=== PATIENT | female | born 1950 | race Caucasian/White ===

== ENCOUNTER → 2016-07-12 | Outpatient (CLI) | payer OTHER, BC ==
[~2016-07-12] VITALS: Ht 154.3 cm; Wt 67.7 kg
[~2016-07-12] MED LIST: DICL1GEL12 TD; ESTR0.1D TD; FLUO20CA35 PO; FLUO40CA8 PO; FLV1 PO; LEVO50TA PO; METH2.5T PO; MULT1CHW18 PO; PANT40TA PO; PRED-301 PO; TOFA1TAB PO; TRAZ1TAB16 PO
[2016-07-12 12:44] VITALS: BP 121/73; PULSE 68; Ht 154.3 cm; Wt 67.7 kg
== END | disposition home or self-care (01) ==
LOC: C.NEUR 12:27
PROVIDERS: ATTEND Internal Medicine Pulmonary Disease
DX: G47.19 Other hypersomnia (principal); R53.83 Other fatigue; R06.83 Snoring; F51.4 Sleep terrors [night terrors]; G25.0 Essential tremor; M06.9 Rheumatoid arthritis, unspecified

== ENCOUNTER → 2016-07-15 | Outpatient (CLI) | payer OTHER, BC ==
--- NOTE | 2016-07-15 10:28 | DIAGNOSTIC IMAGING REPORT ---
MRI OF THE BRAIN WITHOUT CONTRAST CLINICAL HISTORY: , Blurred vision, headache, dizziness. COMPARISON STUDY: 10/16/2015 FINDINGS: Sagittal T1, axial diffusion, proton density and T2 weighted axial, coronal FLAIR, and axial T1-weighted images were acquired. No intra or extra-axial mass lesions are visualized Axial diffusion-weighted images reveal no evidence of acute or subacute infarction. There is no evidence of ventricular dilatation. Proton density T2-weighted and FLAIR images reveal moderately extensive foci of increased T2 signal within the white matter, likely on a small vessel basis. The findings remain similar to the preceding study There are no abnormal flow voids. IMPRESSION: 1. No significant change from the prior September 2015 study 2. No evidence of acute or subacute infarction 3. No evidence of intracranial mass in this noncontrast study 4. Moderately extensive foci of increased T2 and FLAIR signal within the white matter. Electronically signed by: Benjamín Polk M.D. 07/15/2016 10:26 AM Dictated Date/Time: 07/15/2016 10:24 AM
== END | disposition home or self-care (01) ==
LOC: C.MRIBC 09:15
PROVIDERS: ATTEND Psychiatry & Neurology Neurology
DX: F09 Unspecified mental disorder due to known physiological condition (principal)

== ENCOUNTER → 2016-07-24 | Outpatient (CLI) | payer OTHER, BC ==
--- NOTE | 2016-07-24 11:03 | DIAGNOSTIC IMAGING REPORT ---
VENOUS DOPPLER LEFT ARM UPPER EXTREMITY VENOUS DOPPLER HISTORY: Pain. Edema. LEFT ARM PAIN COMPARISON STUDY: None. FINDINGS: The internal jugular vein is patent. There is normal flow within the subclavian vein. There is normal flow and compressibility within the left axillary, basilic, brachial, radial, ulnar, and visualized cephalic veins. IMPRESSION: No DVT within the upper extremity. Electronically signed by: Mani Johnson M.D. 07/24/2016 11:02 AM Dictated Date/Time: 07/24/2016 11:00 AM
--- NOTE | 2016-07-24 11:31 | DIAGNOSTIC IMAGING REPORT ---
LEFT HUMERUS MIN 2 VIEWS ROUTINE CLINICAL HISTORY: M79.602 Left arm [id number] pain COMPARISON: None. DISCUSSION: The bones and joint spaces appear intact. There is no evidence of fracture, dislocation or bony disease. There is no evidence for soft tissue swelling. Possible subtle Hill-Sachs deformity posterior lateral aspect humeral head. This is considered nonacute. IMPRESSION: Negative study. Electronically signed by: Mani Johnson M.D. 07/24/2016 11:30 AM Dictated Date/Time: 07/24/2016 11:29 AM
== END | disposition home or self-care (01) ==
LOC: C.ULTRBC 10:06
PROVIDERS: ATTEND Internal Medicine Geriatric Medicine
DX: M79.602 Pain in left arm (principal)

== ENCOUNTER → 2016-10-17 | Outpatient (CLI) | payer OTHER, BC ==
[~2016-10-17] MED LIST changes: +TRAZ-119 PO; -TRAZ1TAB16 PO
--- NOTE | 2016-10-17 15:08 | MAMMOGRAPHY REPORT ---
BILATERAL DIGITAL SCREENING MAMMOGRAM WITH CAD: 10/17/2016 CLINICAL HISTORY: Routine screening. Patient has no complaints. TECHNIQUE: Current study was also evaluated with a Computer Aided Detection (CAD) system. Bilatera l CC and MLO views were obtained. COMPARISON: Comparison is made to exams dated: 07/12/2015 mammogram, 01/21/2013 mammogram - [facility], and 07/20/2010 mammogram - [facility] Dereje Bonilla. BREAST COMPOSITION: There are scattered areas of fibroglandular density in both breasts. FINDINGS: No suspicious masses, calcifications, or areas of architectural distortion are noted in e ither breast. There has been no significant interval change compared to prior exams. Scattered bilat eral benign-appearing calcifications are not significantly changed. IMPRESSION: ACR BI-RADS CATEGORY 2: BENIGN There is no mammographic evidence of malignancy. A 1 year screening mammogram is recommended. The p atient will receive written notification of the results. Approximately 10% of breast cancers are not detected with mammography. A negative mammographic repor t should not delay biopsy if a clinically suggestive mass is present. Mary Harris M.D. /:10/17/2016 12:18:07 Reference Test Clerk: Jeniffer SOTOMAYOR(Summer)(Mar[place]), [facility] letter sent: Normal 1/2 BI-RADS Code: ACR BI-RADS Category 2: Benign
== END | disposition home or self-care (01) ==
LOC: C.MAMM 10:10
PROVIDERS: ATTEND Internal Medicine Geriatric Medicine
DX: Z12.31 Encounter for screening mammogram for malignant neoplasm of breast (principal)

== ENCOUNTER → 2017-01-13 | Outpatient (CLI) | payer OTHER, BC ==
[~2017-01-13] MED LIST changes: -TRAZ-119 PO; +TRAZ1TAB16 PO
[2017-01-13 13:37] LABS: BASO % 0.2 %; BASO ABS # 0.01 K/uL (0-0.2); COMPLETE YES; HEMATOCRIT 37.9 % (37-47); IG% 0.2 %; LYMPH % 33.3 %; LYMPH ABS # 1.92 K/uL (1.2-3.4); MEAN CELL VOLUME 92.9 fL (80-100); MEAN CORPUSCULAR HEMOGLOBIN 29.9 pg (25-34); MEAN CORPUSCULAR HGB CONC 32.2 g/dl (32-36); MEAN PLATELET VOLUME 10.1 fL (7.4-10.4); MONO % 12.7 %; NEUT % 52.6 %; PLATELET COUNT 346 K/uL (130-400); RED BLOOD COUNT 4.08 M/uL (4.2-5.4); WHITE BLOOD COUNT 5.77 K/uL (4.8-10.8)
[2017-01-13 14:05] LABS: ALT/SGPT 25 U/L (12-78); AST/SGOT 19 U/L (15-37); BLOOD UREA NITROGEN 33 mg/dl (7-18); BUN/CREATININE RATIO 41.2 (10-20); CALCIUM 8.7 mg/dl (8.5-10.1); CARBON DIOXIDE 31 mmol/L (21-32); CHLORIDE 103 mmol/L (98-107); GLUCOSE 69 mg/dl (70-99); POTASSIUM 4.1 mmol/L (3.5-5.1); SODIUM 137 mmol/L (136-145)
[2017-01-13 14:16] LABS: ALKALINE PHOSPHATASE 57 U/L (45-117); CHOLESTEROL 211 mg/dl (0-200); CHOLESTEROL/HDL RATIO 3.6; HDL CHOLESTEROL 58 mg/dl; LDL CHOLESTEROL CALCULATED 130 mg/dl; TRIGLYCERIDES 113 mg/dl (0-150); VERY LOW DENSITY LIPOPROT CALC 23 mg/dl
== END | disposition home or self-care (01) ==
LOC: C.LABBC 11:25
PROVIDERS: ATTEND Internal Medicine Geriatric Medicine
DX: E03.9 Hypothyroidism, unspecified (principal); E78.5 Hyperlipidemia, unspecified

== ENCOUNTER → 2017-03-18 | Outpatient (CLI) | payer OTHER, BC ==
[2017-03-18 11:03] LABS: HEMATOCRIT 37.1 % (37-47); MEAN CELL VOLUME 94.9 fL (80-100); MEAN CORPUSCULAR HEMOGLOBIN 31.7 pg (25-34); MEAN CORPUSCULAR HGB CONC 33.4 g/dl (32-36); MEAN PLATELET VOLUME 9.9 fL (7.4-10.4); PLATELET COUNT 310 K/uL (130-400); RED BLOOD COUNT 3.91 M/uL (4.2-5.4); WHITE BLOOD COUNT 5.61 K/uL (4.8-10.8)
[2017-03-18 11:22] LABS: BLOOD UREA NITROGEN 25 mg/dl (7-18); BUN/CREATININE RATIO 30.8 (10-20); CARBON DIOXIDE 29 mmol/L (21-32); CHLORIDE 102 mmol/L (98-107); GLUCOSE 83 mg/dl (70-99); POTASSIUM 3.8 mmol/L (3.5-5.1); SODIUM 136 mmol/L (136-145)
[2017-03-19 13:00] LABS: LYME DISEASE AB IGG NEG (NEG); LYME DISEASE AB IGM NEG (NEG)
--- NOTE | 2017-03-24 13:07 | CODING QUERY MEDICAL NECESSITY ---
SUPPORTING DIAGNOSIS NEEDED Dr. Solis, A supporting diagnosis is required for the test/procedure performed on this patient in order for us to be reimbursed by the patient's insurance. Please provide a supporting diagnosis for the following test/procedure listed below next to the test name along with your signature. *If there is no additional diagnosis for this patient that would support the following test/procedure please document that below next to the test/procedure. Test(s)/Procedure(s) that require a supporting diagnosis: * ([id number]) B12 VITAMIN LEVEL DIAGNOSIS: DATE OF SERVICE: 03/18/17 Provider Signature: Date: Thank you Stevie Meyers [facility] Information Management Once completed, please kindly fax back to [phone] For questions please call [phone]
== END | disposition home or self-care (01) ==
LOC: C.LABBC 08:50
PROVIDERS: ATTEND Internal Medicine Geriatric Medicine
DX: E03.9 Hypothyroidism, unspecified (principal); R53.83 Other fatigue; G47.19 Other hypersomnia; F09 Unspecified mental disorder due to known physiological condition

== ENCOUNTER 2017-08-04 07:36 | Emergency (ER) | payer OTHER, BC ==
[~2017-08-04] VITALS: Ht 154.3 cm; Wt 64.8 kg
[~2017-08-04 07:36] MED LIST changes: +TRAZ-119 PO; -TRAZ1TAB16 PO
[2017-08-04 07:43] VITALS: TEMP 36.5; Ht 154.3 cm; Wt 64.8 kg
--- NOTE | 2017-08-04 08:17 | DIAGNOSTIC IMAGING REPORT ---
HEAD WITHOUT CONTRAST (CT) CLINICAL HISTORY: 66 years-old Female presenting with fall. TECHNIQUE: Multidetector CT imaging of the head was performed without the use of intravenous contrast. IV contrast: None. A dose lowering technique was used consistent with the principles of ALARA (as low as reasonably achievable). COMPARISON: MR brain from 07/15/2016. CT DOSE (mGy.cm): The estimated cumulative dose is 690.05 mGycm. FINDINGS: [employer] topogram: Unremarkable. Ventricles and sulci normal in size. Periventricular and subcortical white matter hypoattenuation, nonspecific but likely indicative of chronic small vessel ischemic change. No mass effect or midline shift. No hemorrhage or acute territorial infarct. No extra-axial fluid collection. Paranasal sinuses and mastoid air cells clear. Calvarium intact. IMPRESSION: 1. Chronic small vessel ischemic change. No acute intracranial abnormality. Electronically signed by: Chato Celeste M.D. 08/04/2017 8:16 AM Dictated Date/Time: 08/04/2017 8:13 AM
[2017-08-04] MEDS ORDERED: HYDROmorphone INJ 0.5 MG/0.5 ML SYR IV STA (08:49)
[2017-08-04] MEDS ORDERED: ONDANSETRON INJ 2 MG/ML 2 ML VIAL IV STA (08:49)
--- NOTE | 2017-08-04 09:38 | EMERGENCY ROOM VISIT NOTE ---
History Report prepared by Ella: Leopoldo Dunne Under the Supervision of: Dr. Bora Kevin D.O. First contact with patient: 07:47 Chief Complaint: FALL Stated Complaint: FALL, HIT HEAD History of Present Illness The patient is a 66 year old female who presents to the Emergency Room with complaints of pain in her head following a falling episode that occurred just prior to arrival. The patient states that she slipped on a patch ice this morning and fell directly backwards. She did hit the back of her head on the concrete ground. She describes the pain in her head as a "throbbing." The patient did not lost consciousness following the fall, and notes that she stood right back up on her own after the accident. She is also currently complaining of pain in the left side of her jaw. She has not taken any medications for her head pain to this point. Source of History: patient Onset: Just prior to arrival. Position: head Quality: other (Throbbing ) Associated Symptoms: No LOC Note: Left sided Jaw Pain. Review of Systems See HPI for pertinent positives & negatives. A total of 10 systems reviewed and were otherwise negative. Past Medical & Surgical Medical Problems: (1) Diverticulosis Colon (W/O Ment Of Hemorrhage) (2) Fibromyalgia (3) Rheumatoid Arthritis Family History FH: heart disease Social History Smoking Status: Never Smoker Drug Use: none Marital Status: Housing Status: lives with family Current/Historical Medications Scheduled Celecoxib (Celebrex), 50 MG PO BID Duloxetine HCl (Cymbalta), 60 MG PO QAM Ergocalciferol (Vitamin D 88845 Unit), 50,000 UNIT PO WK Estradiol (Vivelle-Dot), 1 PATCH TD 2XWK Folic Acid (Folic Acid), 1 MG PO QPM Levothyroxine Sodium (Synthroid), 50 MCG PO DAILY Methotrexate Sodium (Methotrexate), 8 TABS PO WK Multiple Vitamins W/ Minerals (Multivitamin Gummies Adul), 1 CHW PO DAILY Pantoprazole (Protonix), 40 MG PO BID Prednisone (Prednisone), 5 MG PO DAILY Trazodone Hcl (Desyrel), 50 MG PO HS Scheduled PRN Diclofenac Sodium (Topical) (Voltaren 1% Top Gel), 1 APPLN TD QID PRN for Pain Allergies Coded Allergies: Codeine (Verified Allergy, Intermediate, RASH, 08/04/17) Penicillins (Verified Allergy, Intermediate, RASH, 08/04/17) Sulfa Drugs (Verified Allergy, Intermediate, RASH, 08/04/17) Physical Exam Vital Signs Date Time Temp Pulse Resp B/P (MAP) Pulse Ox O2 Delivery O2 Flow Rate FiO2 08/04/17 08:20 62 14 141/73 97 Room Air 08/04/17 07:43 36.5 73 18 146/71 99 Room Air Physical Exam CONSTITUTIONAL/VITAL SIGNS: Reviewed / noted above. GENERAL: Non-toxic in appearance. INTEGUMENTARY: Warm, dry, and [place]. HEAD: Normocephalic. EYES: without scleral icterus or trauma. ENT/OROPHARYNX: clear and moist. LYMPHADENOPATHY/NECK: Is supple without lymphadenopathy or meningismus. RESPIRATORY: Lungs clear and equal. CARDIOVASCULAR: Regular rate and rhythm. GI/ABDOMEN: Soft and nontender. No organomegaly or pulsatile mass. No rebound or guarding. Normal bowel sounds. EXTREMITIES: Warm and well perfused. BACK: No CVA tenderness. NEUROLOGICAL: Intact without focal deficits. PSYCHIATRIC: normal affect. MUSCULOSKELETAL: Normally developed with good muscle tone. Medical Decision & Procedures ER Provider Diagnostic Interpretation: Radiology results as stated below per my review and radiologist interpretation: HEAD WITHOUT CONTRAST (CT) CLINICAL HISTORY: 66 years-old Female presenting with fall. TECHNIQUE: Multidetector CT imaging of the head was performed without the use of intravenous contrast. IV contrast: None. A dose lowering technique was used consistent with the principles of ALARA (as low as reasonably achievable). COMPARISON: MR brain from 07/15/2016. CT DOSE (mGy.cm): The estimated cumulative dose is 690.05 mGycm. 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 Ventricles and sulci normal in size. Periventricular and subcortical white matter hypoattenuation, nonspecific but likely indicative of chronic small vessel ischemic change. No mass effect or midline shift. No hemorrhage or acute territorial infarct. No extra-axial fluid collection. Paranasal sinuses and mastoid air cells clear. Calvarium intact. IMPRESSION: 1. Chronic small vessel ischemic change. No acute intracranial abnormality. Electronically signed by: Chato Celeste M.D. 08/04/2017 8:16 AM Dictated Date/Time: 08/04/2017 8:13 AM ED Course 0754: Previous medical records were reviewed. The patient was evaluated in room B8. A complete history and physical examination was performed. 0849: Ordered Zofran 4 mg IV, Dilaudid Inj 0.5 mg IV. 0936: On reevaluation, the patient is resting in bed. I discussed the results and findings with the patient. She verbalized agreement of the treatment plan. The patient was discharged home. Medical Decision Differential includes close head injury, intracranial bleed, facial trauma, cervical spine trauma, chest and thoracic trauma, abdominal and intra-abdominal trauma, spine neurologic trauma, extremity trauma. This is a 66-year-old female who presents to the ED with a chief complaint of fall. The patient states that she slipped and fell striking the back of her head on asphalt. She presents complaining of a headache and some left-sided jaw pain. The patient denies loss of consciousness. She denies any other injuries. No neck or back pain. The patient did not want anything for the pain. A CT scan of the head did not show acute process. Her exam did not reveal any obvious injury. She does complain of some left-sided jaw pain. There does not appear to be any evidence of a fracture. She may have contused the left jaw when she impacted causing a clenching of the jaw or some mild irritation of the jaw related to her impact. The patient's exam did not reveal any other obvious injuries. No back pain or neck pain on exam. The patient was told the results of the test. She was told to take Tylenol. She will follow-up with her PCP if her jaw pain persists after 1 week. She was to avoid heavy chewing. Impression Primary Impression: Fall Additional Impressions: Contusion of head Jaw pain Scribe Attestation The scribe's documentation has been prepared under my direction and personally reviewed by me in its entirety. I confirm that the note above accurately reflects all work, treatment, procedures, and medical decision making performed by me. Departure Information Dispostion Home / Self-Care Referrals No Doctor, Assigned (PCP) Patient Instructions My [facility] Additional Instructions Follow-up with your doctor in 1 week if jaw pain persists. CAT scan of the brain did not show any evidence of bleeding or skull fracture. Avoid excessive chewing while allowing your jaw to heal. Problem Qualifiers
[2017-08-04] MEDS ORDERED: CYM/30 PO (09:40)
[2017-08-04] MEDS ORDERED: ERGO500037 PO (09:40)
[2017-08-04] MEDS ORDERED: CELE50CA PO (09:40)
[2017-08-04 09:44] VITALS: BP 123/63; PULSE 63; O2SAT 99
== END 2017-08-04 09:45 | disposition home or self-care (01) ==
LOC: C.EDB 07:39
DX: S00.93XA Contusion of unspecified part of head, initial encounter (principal); R68.84 Jaw pain; W00.0XXA Fall on same level due to ice and snow, initial encounter; Y92.9 Unspecified place or not applicable; K57.30 Diverticulosis of large intestine without perforation or abscess without bleeding; M79.7 Fibromyalgia; M06.9 Rheumatoid arthritis, unspecified; Z82.49 Family history of ischemic heart disease and other diseases of the circulatory system; Z79.52 Long term (current) use of systemic steroids; Z79.899 Other long term (current) drug therapy; Z88.0 Allergy status to penicillin; Z88.2 Allergy status to sulfonamides; Z88.5 Allergy status to narcotic agent

== ENCOUNTER → 2017-10-08 | Outpatient (CLI) | payer OTHER, BC ==
[~2017-10-08] MED LIST changes: +CELE50CA PO; +CYM/30 PO; +ERGO500037 PO; -FLUO20CA35 PO; -FLUO40CA8 PO; -TOFA1TAB PO
[2017-10-08 13:20] LABS: BASO % 0.3 %; BASO ABS # 0.02 K/uL (0-0.2); EOS % 1.3 %; EOS ABS # 0.08 K/uL (0-0.5); HEMATOCRIT 39.3 % (37-47); HEMOGLOBIN 13.3 g/dL (12.0-16.0); IG# 0.01 K/uL (0.00-0.02); LYMPH % 31.2 %; LYMPH ABS # 1.89 K/uL (1.2-3.4); MEAN CELL VOLUME 95.2 fL (80-100); MEAN CORPUSCULAR HEMOGLOBIN 32.2 pg (25-34); MEAN CORPUSCULAR HGB CONC 33.8 g/dl (32-36); MEAN PLATELET VOLUME 10.2 fL (7.4-10.4); MONO % 12.5 %; MONO ABS # 0.76 K/uL (0.11-0.59); NEUT % 54.5 %; PLATELET COUNT 335 K/uL (130-400); RED CELL DISTRIBUTION WIDTH CV 13.5 % (11.5-14.5); RED CELL DISTRIBUTION WIDTH SD 46.6 fL (36.4-46.3); WHITE BLOOD COUNT 6.06 K/uL (4.8-10.8)
[2017-10-08 14:29] LABS: ALBUMIN 3.6 gm/dl (3.4-5.0); ALT/SGPT 40 U/L (12-78); AST/SGOT 22 U/L (15-37); CREATININE 0.86 mg/dl (0.60-1.20)
[2017-10-08 14:32] LABS: ALKALINE PHOSPHATASE 56 U/L (45-117)
== END | disposition home or self-care (01) ==
LOC: C.LABBC 10:28
PROVIDERS: ATTEND Internal Medicine
DX: M05.79 Rheumatoid arthritis with rheumatoid factor of multiple sites without organ or systems involvement (principal); Z79.899 Other long term (current) drug therapy

== ENCOUNTER 2018-08-21 19:26 | Inpatient (IN) ==
[2018-08-21] MEDS ORDERED: ACETAMINOPHEN 500 MG TAB PO STA (20:40)
[2018-08-21] MEDS ORDERED: fentaNYL citrate 100 MCG/2 ML VIAL IV STA (20:40)
[2018-08-21] MEDS ORDERED: SODIUM CHLORIDE 0.9% 500 ML IV SCH (20:45)
[2018-08-21 20:52] LABS: Basophils # (auto) 0.02 K/uL (0-0.2); Basophils % (auto) 0.2 %; Eosinophils # (auto) 0.06 K/uL (0-0.5); Eosinophils % (auto) 0.7 %; Hematocrit (blood only) 35.9 % (37-47); Hemoglobin 12.1 g/dL (12.0-16.0); Immature Granulocytes # (auto) 0.01 K/uL (0.00-0.02); Immature Granulocytes % (auto) 0.1 %; Lymphocytes # (auto) 3.03 K/uL (1.2-3.4); Lymphocytes % (auto) 34.8 %; Mean Corpuscular Hgb Conc 33.7 g/dL (32-36); Mean Corpuscular Volume 93.7 fL (80-100); Mean Platelet Volume 9.8 fL (7.4-10.4); Monocytes # (auto) 1.08 K/uL (0.11-0.59); Monocytes % (auto) 12.4 %; Neutrophils % (auto) 51.8 %; Platelet Count 305 K/uL (130-400); RDW Coefficient of Variation 13.9 % (11.5-14.5); RDW Standard Deviation 46.7 fL (36.4-46.3); Red Blood Count 3.83 M/uL (4.2-5.4)
--- NOTE | 2018-08-21 20:55 | XRay Report ---
XR chest 1V portable HISTORY: 67 years-old Female Chest Pain acute atypical chest pain COMPARISON: Chest radiograph 01/07/2018 TECHNIQUE: Portable AP view of the chest FINDINGS: Cardiomediastinal and hilar silhouettes are within normal limits. No pneumothorax, pleural effusion, focal airspace consolidation or overt pulmonary edema. Bones of the chest appear grossly intact. IMPRESSION: No acute process. The above report was generated using voice recognition software. It may contain grammatical, syntax o r spelling errors. Electronically signed by: Rafal Larsen M.D. 08/21/2018 8:54 PM
[2018-08-21 21:08] LABS: Albumin Level 3.3 gm/dl (3.4-5.0); BUN Creatinine Ratio 31.8 (10-20); Calcium 8.7 mg/dl (8.5-10.1); Creatinine Clr Calc Pharmacy 62.6 ml/min; Est GFR (African American) 98.8; Est GFR (Non-African American) 85.2; Potassium 3.4 mmol/L (3.5-5.1)
[2018-08-21 21:20] LABS: Bilirubin,Total 0.2 mg/dl (0.2-1); Globulin 3.4 gm/dl (2.5-4.0); Total Protein 6.7 gm/dl (6.4-8.2); Troponin I 0.212 ng/ml (0-0.045)
[2018-08-21] MEDS ORDERED: ASPIRIN CHEW 324 MG PO STA (21:24)
[2018-08-21] MEDS ORDERED: NITROGLYCERIN SL 0.4 MG/TAB TAB SL STA (21:24)
[2018-08-21 21:53] LABS: Partial Thromboplastin Ratio 0.9; Partial Thromboplastin Time 25.4 Seconds (21.0-31.0); Prothrombin Time 10.1 Seconds (9.0-12.0)
[2018-08-21 22:04] LABS: Magnesium 2.2 mg/dl (1.8-2.4); Phosphorus 3.2 mg/dl (2.5-4.9)
[2018-08-21] MEDS ORDERED: NITROGLYCERIN SL 0.4 MG/TAB TAB SL PRN (22:07)
[2018-08-21] MEDS ORDERED: HEPARIN SQ 5000 UNIT HEART ALERT CARP ONE (22:07)
[2018-08-21] MEDS ORDERED: HEPARIN 25000 UNIT/500 ML D5W IV ONE (22:08)
--- NOTE | 2018-08-21 22:19 | Emergency Department Note ---
Entered by Isamar Caldera acting as a scribe for Cristian Bailon MD History of Present Illness General Chief complaint: Chest Pain Stated complaint: chest pains Time Seen by Provider: 08/21/18 20:20 Source: patient and family Mode of arrival: ambulatory Limitations: no limitations History of Present Illness Provider complaint: CP Onset (ago): day(s) 2 Location: chest Severity: moderate Pain Consistency: + intermittent Maximum Pain Intensity: 7 Quality: + other (pressure) Relieved By: not by rest Exacerbated By: not by movement Associated symptoms: + denies other symptoms; no fever/chills, no loss of appetite and no nausea/vomiting The patient is a 67 year old white female w/ PMHx of RA who presents to the ED w/ CC of CP beginning x2 days ago. CP is moderate in severity and intermittent since onset. Pain is described as pressure and located in the center of the chest. Pain does not change with movement or rest. Patient tried taking Maalox and using a heating pad on her back for the pain, which showed no real improvement. She notes that she was at the dentist x2 days ago, noting her BP was 140. shares that he took her BP today, which was 160. also expresses that patients eyes have been more bloodshot and twitching. Patient notes that her pain is different from her normal RA flare ups. Patient denies any calf pain, swelling in legs, fevers, nausea, vomiting, loss of appetite, ABD pain or any other complaints or concerns at this time. She denies any recent travel, long car rides, trauma, illness, or strenuous exercise. She lastly notes she did have a stress test a few years ago, which was unremarkable. Patient has Maternal FHX of x3 CABG at age 50. Home Medications Home Medications Medication Instructions Recorded Confirmed Type celecoxib [Celebrex] 200 mg PO BID 08/21/18 08/21/18 History diclofenac sodium [Voltaren] 2 g TOPICAL QID PRN 08/21/18 08/21/18 History duloxetine [Cymbalta] 60 mg PO DAILY 08/21/18 08/21/18 History estradiol 1 patch TOPICAL [id number] 08/21/18 08/21/18 History folic acid 1 mg PO DAILY 08/21/18 08/21/18 History levothyroxine 50 mcg PO DAILY 08/21/18 08/21/18 History liothyronine [Cytomel] 5 mcg PO DAILY 08/21/18 08/21/18 History methotrexate sodium 6 tab PO WK 08/21/18 08/21/18 History multivitamin 1 tab PO DAILY 08/21/18 08/21/18 History pantoprazole 40 mg PO BID 08/21/18 08/21/18 History prednisone 5 mg PO DAILY 08/21/18 08/21/18 History trazodone 50 mg PO HS 08/21/18 08/21/18 History Allergies Allergy/AdvReac Type Severity Reaction Status Date / Time codeine Allergy Intermediate RASH Verified 08/21/18 21:55 Penicillins Allergy Intermediate RASH Verified 08/21/18 21:55 Sulfa (Sulfonamide Allergy Intermediate RASH Verified 08/21/18 21:55 Antibiotics) Past Med/Surg History Medical History RA (rheumatoid arthritis) (Chronic) Fibromyalgia (Chronic) Family history non-contributory HLD (hyperlipidemia) Hypothyroid NSTEMI (non-ST elevated myocardial infarction) Surgical History No pertinent past surgical history Family History Other Family history non-contributory Social History Preferred Language: Japanese Communication Ability: Effective 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 and A total of 10 systems reviewed and were otherwise negative Physical Exam Vital Signs Vital Signs - 24 hr 08/21/18 19:27 08/21/18 21:38 08/21/18 22:15 Temperature 36.7 C Temperature Source Oral Sepsis Recent Fever Within 48 Hours No Sepsis Action Taken by Nursing No Action Required Pulse Rate 84 Pulse Rate [Finger] 60 72 Pulse Rhythm Regular Pulse Rhythm [Finger] Pulse Strength Normal Pulse Strength [Finger] Respiratory Rate 18 18 19 Respiratory Effort / Characteristics Non-Labored Respiratory Depth Normal Respiratory Pattern Regular Blood Pressure 165/102 H Blood Pressure [Right Arm] 137/71 138/59 L Blood Pressure Mean 123 Blood Pressure Mean [Right Arm] 93 85 Blood Pressure Position Sitting Blood Pressure Position [Right Arm] Pulse Oximetry 97 95 97 Oxygen Delivery Method Room Air Room Air Room Air 08/21/18 23:15 08/22/18 00:00 08/22/18 00:22 Temperature 36.8 C Temperature Source Oral Sepsis Recent Fever Within 48 Hours Sepsis Action Taken by Nursing Pulse Rate 58 L Pulse Rate [Finger] 62 67 Pulse Rhythm Pulse Rhythm [Finger] Regular Pulse Strength Pulse Strength [Finger] Normal Respiratory Rate 16 18 Respiratory Effort / Characteristics Non-Labored Spontaneous Non-Labored Respiratory Depth Normal Normal Respiratory Pattern Regular Regular Blood Pressure Blood Pressure [Right Arm] 128/59 L 151/76 H Blood Pressure Mean Blood Pressure Mean [Right Arm] 82 101 Blood Pressure Position Blood Pressure Position [Right Arm] Lying Sitting Pulse Oximetry 95 95 Oxygen Delivery Method Room Air Room Air 08/22/18 04:00 08/22/18 08:00 08/22/18 13:06 Temperature 37.1 C 37.4 C Temperature Source Oral Oral Sepsis Recent Fever Within 48 Hours Sepsis Action Taken by Nursing Pulse Rate 60 Pulse Rate [Finger] 67 59 L 61 Pulse Rhythm Pulse Rhythm [Finger] Regular Pulse Strength Pulse Strength [Finger] Normal Respiratory Rate 18 18 18 Respiratory Effort / Characteristics Non-Labored Spontaneous Non-Labored Spontaneous Respiratory Depth Normal Normal Respiratory Pattern Regular Blood Pressure Blood Pressure [Right Arm] 120/53 L 139/59 L 120/56 L Blood Pressure Mean Blood Pressure Mean [Right Arm] 75 85 77 Blood Pressure Position Blood Pressure Position [Right Arm] Lying Lying Pulse Oximetry 95 97 97 Oxygen Delivery Method Room Air Room Air Room Air GENERAL: Well appearing, well nourished, NAD, non-toxic. EYE EXAM: Normal conjunctiva. PERRL, no anisocoria and EOM's grossly intact w/o pain. OROPHARYNX: Moist MM. NECK: Supple, no nuchal rigidity, no adenopathy, non-tender. No signs of meningismus. LUNGS: Clear to auscultation. Normal chest wall mechanics. HEART: NSR, no MRG. CHEST WALL: No reproducible CW pain. ABDOMEN: Abdomen soft, non-tender, normo-active bowel sounds, no masses, no rebound or guarding. BACK: No CVA TTP. SKIN: No rashes and no bruising. UPPER EXTREMITIES: Upper extremities are grossly normal. LOWER EXTREMITIES: No pitting edema. No calf pain. No diana signs. NO erythema in legs. NEURO EXAM: A and O x3. GCS 15. Moves all 4 extremities on command w/o issue. Course 2023: Past medical records reviewed. The patient was evaluated in room C06, and a complete history and physical examination were performed. 2119: Reassessed patient. Patient still has some discomfort, will be given nitroglycerin 2149: Nurse alerts provider that patient is feeling better after receiving nitroglycerin. 2154: Reassessed patient, which pain is now rated a 6/10. Updated patient on plan to admit. Patient is agreeable to plan. 2199: Dr. Gomez will see and evaluate the patient for further treatment and disposition. Consultations Consultation #1: Dr. Gomez, [facility] Hospialist Time: 22:00 Administered Medications Aspirin (Ecotrin Ectab) 81 mg PO QAM [facility] Stop: 09/21/18 08:59 Last Admin: 08/22/18 08:44 Dose: 81 mg Documented by: [id number] Duloxetine HCl (Cymbalta) 60 mg PO DAILY [facility] Stop: 09/21/18 08:59 Last Admin: 08/22/18 08:44 Dose: 60 mg Documented by: [id number] Heparin Sodium/Dextrose (Heparin Sodium/Dextrose) 25,000 units in 500 mls @ 16 mls/hr IV .Q24H [facility]; Protocol Stop: 09/20/18 23:14 Last Titration: 08/22/18 09:52 Dose: 800 units/hr, 16 mls/hr Documented by: [id number] Cosigned by: [id number] Titration: 08/22/18 05:25 Dose: 0 units/hr, 0 mls/hr Documented by: [id number] Cosigned by: [id number] Admin: 08/21/18 23:50 Dose: 950 units/hr, 19 mls/hr Documented by: [id number] Cosigned by: [id number] [facility]: 09/21/18 06:29 Last Admin: 08/22/18 06:20 Dose: 50 mcg Documented by: [id number] Liothyronine Sodium (Cytomel) 5 mcg PO DAILY [facility] Stop: 09/21/18 08:59 Last Admin: 08/22/18 08:44 Dose: 5 mcg Documented by: [id number] Pantoprazole Sodium (Protonix) 40 mg PO BID [facility] Stop: 09/21/18 08:59 Last Admin: 08/22/18 08:44 Dose: 40 mg Documented by: [id number] Admin: 08/22/18 00:35 Dose: 40 mg Documented by: [id number] Prednisone (Prednisone) 5 mg PO DAILY [facility] Stop: 09/21/18 08:59 Last Admin: 08/22/18 08:44 Dose: 5 mg Documented by: [id number] Trazodone HCl (Desyrel) 50 mg PO HS [facility] Stop: 09/21/18 20:59 Last Admin: 08/22/18 00:36 Dose: 50 mg Documented by: [id number] Discontinued Medications Acetaminophen (Tylenol) 1,000 mg PO NOW STA Stop: 08/21/18 20:41 Last Admin: 08/21/18 20:56 Dose: 1,000 mg Documented by: [id number] Aspirin (Aspirin) 324 mg PO NOW STA Stop: 08/21/18 21:25 Last Admin: 08/21/18 21:36 Dose: 324 mg Documented by: [id number] Eptifibatide (Integrilin (Sanipractic Physician Use Only)) Confirm Administered Dose 20 mg .ROUTE .STK-MED ONE Stop: 08/22/18 12:21 Last Admin: 08/22/18 12:52 Dose: 5.6 ml Documented by: [id number] Eptifibatide (Integrilin (Sanipractic Physician Use Only)) Confirm Administered Dose 75 mg .ROUTE .STK-MED ONE Stop: 08/22/18 12:21 Last Admin: 08/22/18 12:52 Dose: Not Given Documented by: [id number] Eptifibatide (Integrilin Bolus/Drip) 1 ea IV NOW STA; Protocol Stop: 08/22/18 12:43 Last Admin: 08/22/18 12:55 Dose: 1 ea Documented by: [id number] Fentanyl Citrate (Fentanyl Citrate) 25 mcg IV NOW [facility] Stop: 08/21/18 20:41 Last Admin: 08/21/18 20:55 Dose: 25 mcg Documented by: [id number] Fentanyl Citrate (Fentanyl Citrate) Confirm Administered Dose 100 mcg .ROUTE .STK-MED ONE Stop: 08/22/18 11:21 Last Increment: 08/22/18 12:48 Dose: 50 mcg Documented by: [id number] Heparin Sodium (Beef Lung) (Heparin Sod 5000u Heart Alert) Confirm Administered Dose 5,000 units .ROUTE .STK-MED ONE Stop: 08/21/18 22:08 Last Admin: 08/21/18 22:12 Dose: 5,000 units Documented by: [id number] Cosigned by: [id number] Heparin Sodium (Porcine) (Heparin Iv Bolus (Sanipractic Physician Use Only)) Confirm Administered Dose 10,000 units .ROUTE .STK-MED ONE Stop: 08/22/18 11:21 Last Admin: 08/22/18 12:49 Dose: 2,000 units Documented by: [id number] Heparin Sodium/Dextrose () 1 ea IV NOW STA; Protocol Stop: 08/21/18 21:31 Last Admin: 08/21/18 22:12 Dose: Not Given Documented by: [id number] Heparin Sodium/Dextrose (Heparin Sodium/Dextrose) Confirm Administered Dose 25,000 units IV .STK-MED ONE Stop: 08/21/18 22:09 Last Admin: 08/21/18 22:12 Dose: 25,000 units Documented by: [id number] Cosigned by: [id number] Heparin Sodium/Dextrose () 1 ea IV ONE ONE; Protocol Stop: 08/21/18 23:55 Last Admin: 08/22/18 00:17 Dose: Not Given Documented by: [id number] Heparin Sodium/Sodium Chloride (Heparin Sod/Nss 2 Units/Ml) Confirm Administered Dose 3,000 units IV .STK-MED ONE Stop: 08/22/18 11:21 Last Admin: 08/22/18 12:50 Dose: 3,000 units Documented by: [id number] Sodium Chloride (Nss) 500 mls @ 999 mls/hr IV .Q31M [facility] Stop: 08/21/18 21:15 Last Infusion: 08/21/18 21:29 Dose: 0 mls/hr Documented by: [id number] Admin: 08/21/18 20:53 Dose: 999 mls/hr Documented by: [id number] Potassium Chloride/Dextrose/Sod Cl (D5nss + 20meq Kcl) 20 meq in 1,000 mls @ 100 mls/hr IV .Q10H [facility] Stop: 08/22/18 09:53 Last Infusion: 08/22/18 10:21 Dose: 0 mls/hr Documented by: [id number] Admin: 08/22/18 00:29 Dose: 100 mls/hr Documented by: [id number] Influenza Virus Vaccine (Fluzone High-Dose Pf) 0.5 ml IM .ONCE ONE Stop: 08/22/18 01:31 Last Admin: 08/22/18 08:48 Dose: Not Given Documented by: [id number] Lidocaine HCl (Xylocaine 1% (Local)) Confirm Administered Dose 20 ml .ROUTE . STK-MED ONE Stop: 08/22/18 11:33 Last Admin: 08/22/18 12:51 Dose: 20 ml Documented by: [id number] Midazolam HCl (Versed) Confirm Administered Dose 2 mg .ROUTE .STK-MED ONE Stop: 08/22/18 11:21 Last Increment: 08/22/18 12:51 Dose: 1 mg Documented by: [id number] Nicardipine HCl (Cardene) Confirm Administered Dose 25 mg .ROUTE .STK-MED ONE Stop: 08/22/18 11:21 Last Admin: 08/22/18 12:48 Dose: 25 mg Documented by: [id number] Nitroglycerin (Nitrostat) 0.4 mg SL NOW STA Stop: 08/21/18 21:25 Last Admin: 08/21/18 21:36 Dose: 0.4 mg Documented by: [id number] Nitroglycerin (Nitrostat) Confirm Administered Dose 0.4 mg .ROUTE .STK-MED ONE Stop: 08/22/18 12:21 Last Admin: 08/22/18 12:54 Dose: 0.4 mg Documented by: [id number] Nitroglycerin/Dextrose (Nitroglycerin/D5w 100 Mcg/Ml 20ml Syringe) Confirm Administered Dose 2,000 mcg .ROUTE .STK-MED ONE Stop: 08/22/18 11:22 Last Admin: 08/22/18 12:51 Dose: 2,000 mcg Documented by: [id number] Ticagrelor (Brilinta) Confirm Administered Dose 180 mg PO .STK-MED ONE Stop: 08/22/18 12:25 Last Admin: 08/22/18 12:54 Dose: 180 mg Documented by: [id number] Medical Decision Making Medical Records Attestation: I reviewed the patient's medical records. Home Medications Current Medication List: was personally reviewed by me Laboratory Data Attestation: I reviewed the patient's lab results. Result diagrams: 08/22/18 06:07 08/22/18 08:28 Lab Results 08/21/18 08/21/18 08/21/18 Range/Units 20:35 20:35 20:35 WBC 8.70 (4.8-10.8) K/uL RBC 3.83 L (4.2-5.4) M/uL Hgb 12.1 (12.0-16.0) g/dL POC Hgb (12.0-16.0) g/dl Hct 35.9 L (37-47) % POC Hct (37-47) % MCV 93.7 (80-100) fL MCH 31.6 (25-34) pg MCHC 33.7 (32-36) g/dL RDW Std Deviation 46.7 H (36.4-46.3) fL RDW Coeff of Rashard 13.9 (11.5-14.5) % Plt Count 305 (130-400) K/uL MPV 9.8 (7.4-10.4) fL Immature Gran % (Auto) 0.1 % Neut % (Auto) 51.8 % Lymph % (Auto) 34.8 % Fisher % (Auto) 12.4 % Eos % (Auto) 0.7 % Baso % (Auto) 0.2 % Immature Gran # (Auto) 0.01 (0.00-0.02) K/uL Neut # (Auto) 4.50 (1.4-6.5) K/uL Lymph # (Auto) 3.03 (1.2-3.4) K/uL Fisher # (Auto) 1.08 H (0.11-0.59) K/uL Eos # (Auto) 0.06 (0-0.5) K/uL Baso # (Auto) 0.02 (0-0.2) K/uL PT 10.1 (9.0-12.0) Seconds INR 1.0 (0.9-1.1) APTT 25.4 (21.0-31.0) Seconds PTT Ratio 0.9 POC D-Dimer (0-450) ng/mlFEU POC Sodium (135-144) mEq/L Sodium 139 (136-145) mmol/L POC Potassium (3.3-5.0) mEq/L Potassium 3.4 L (3.5-5.1) mmol/L POC Chloride (101-112) mEq/L Chloride 106 (98-107) mmol/L Carbon Dioxide 27 (21-32) mmol/L POC Total CO2 (24-31) mEq/l Anion Gap 7.0 (3-11) POC Anion Gap (16-25) mmol/L POC BUN (7-18) mg/dl BUN 23 H (7-18) mg/dl Creatinine 0.73 (0.6-1.2) mg/dl POC Creatinine (0.6-1.3) mg/dl Est Cr Clr Drug Dosing 62.6 ml/min Est GFR ( Amer) 98.8 Est GFR (Non-Af Amer) 85.2 BUN/Creatinine Ratio 31.8 H (10-20) Glucose 119 H (70-99) mg/dl POC Glucose (other) (70-99) mg/dl Calcium 8.7 (8.5-10.1) mg/dl POC Ioniz Calcium Mary (1.12-1.32) mmol/l Phosphorus 3.2 (2.5-4.9) mg/dl Magnesium 2.2 (1.8-2.4) mg/dl Total Bilirubin 0.2 (0.2-1) mg/dl AST 16 (15-37) U/L ALT 20 (12-78) U/L Alkaline Phosphatase 49 (45-117) U/L Troponin I 0.212 H* (0-0.045) ng/ml Total Protein 6.7 (6.4-8.2) gm/dl Albumin 3.3 L (3.4-5.0) gm/dl Globulin 3.4 (2.5-4.0) gm/dl Albumin/Globulin Ratio 1.0 (0.9-2) Lipase 88 (73-393) U/L Hepatitis C Ab Screen (Neg) 08/21/18 08/21/18 08/21/18 Range/Units 20:35 20:45 20:46 WBC (4.8-10.8) K/uL RBC (4.2-5.4) M/uL Hgb (12.0-16.0) g/dL POC Hgb 11.6 L (12.0-16.0) g/dl Hct (37-47) % POC Hct 34 L (37-47) % MCV (80-100) fL MCH (25-34) pg MCHC (32-36) g/dL RDW Std Deviation (36.4-46.3) fL RDW Coeff of Rashard (11.5-14.5) % Plt Count (130-400) K/uL MPV (7.4-10.4) fL Immature Gran % (Auto) % Neut % (Auto) % Lymph % (Auto) % Fisher % (Auto) % Eos % (Auto) % Baso % (Auto) % Immature Gran # (Auto) (0.00-0.02) K/uL Neut # (Auto) (1.4-6.5) K/uL Lymph # (Auto) (1.2-3.4) K/uL Fisher # (Auto) (0.11-0.59) K/uL Eos # (Auto) (0-0.5) K/uL Baso # (Auto) (0-0.2) K/uL PT (9.0-12.0) Seconds INR (0.9-1.1) APTT (21.0-31.0) Seconds PTT Ratio POC D-Dimer 167 (0-450) ng/mlFEU POC Sodium 140 (135-144) mEq/L Sodium (136-145) mmol/L POC Potassium 3.4 (3.3-5.0) mEq/L Potassium (3.5-5.1) mmol/L POC Chloride 101 (101-112) mEq/L Chloride (98-107) mmol/L Carbon Dioxide (21-32) mmol/L POC Total CO2 26 (24-31) mEq/l Anion Gap (3-11) POC Anion Gap 17.0 (16-25) mmol/L POC BUN 24 H (7-18) mg/dl BUN (7-18) mg/dl Creatinine (0.6-1.2) mg/dl POC Creatinine 0.7 (0.6-1.3) mg/dl Est Cr Clr Drug Dosing ml/min Est GFR ( Amer) Est GFR (Non-Af Amer) BUN/Creatinine Ratio (10-20) Glucose (70-99) mg/dl POC Glucose (other) 121 H (70-99) mg/dl Calcium (8.5-10.1) mg/dl POC Ioniz Calcium Mary 1.20 (1.12-1.32) mmol/l Phosphorus Cancelled (2.5-4.9) mg/dl Magnesium Cancelled (1.8-2.4) mg/dl Total Bilirubin (0.2-1) mg/dl AST (15-37) U/L ALT (12-78) U/L Alkaline Phosphatase (45-117) U/L Troponin I (0-0.045) ng/ml Total Protein (6.4-8.2) gm/dl Albumin (3.4-5.0) gm/dl Globulin (2.5-4.0) gm/dl Albumin/Globulin Ratio (0.9-2) Lipase (73-393) U/L Hepatitis C Ab Screen (Neg) 08/22/18 08/22/18 08/22/18 Range/Units 00:24 04:05 06:07 WBC (4.8-10.8) K/uL RBC (4.2-5.4) M/uL Hgb (12.0-16.0) g/dL POC Hgb (12.0-16.0) g/dl Hct (37-47) % POC Hct (37-47) % MCV (80-100) fL MCH (25-34) pg MCHC (32-36) g/dL RDW Std Deviation (36.4-46.3) fL RDW Coeff of Rashard (11.5-14.5) % Plt Count (130-400) K/uL MPV (7.4-10.4) fL Immature Gran % (Auto) % Neut % (Auto) % Lymph % (Auto) % Fisher % (Auto) % Eos % (Auto) % Baso % (Auto) % Immature Gran # (Auto) (0.00-0.02) K/uL Neut # (Auto) (1.4-6.5) K/uL Lymph # (Auto) (1.2-3.4) K/uL Fisher # (Auto) (0.11-0.59) K/uL Eos # (Auto) (0-0.5) K/uL Baso # (Auto) (0-0.2) K/uL PT (9.0-12.0) Seconds INR (0.9-1.1) APTT > 139.0 H* (21.0-31.0) Seconds PTT Ratio > 5.1 POC D-Dimer (0-450) ng/mlFEU POC Sodium (135-144) mEq/L Sodium (136-145) mmol/L POC Potassium (3.3-5.0) mEq/L Potassium (3.5-5.1) mmol/L POC Chloride (101-112) mEq/L Chloride (98-107) mmol/L Carbon Dioxide (21-32) mmol/L POC Total CO2 (24-31) mEq/l Anion Gap (3-11) POC Anion Gap (16-25) mmol/L POC BUN (7-18) mg/dl BUN (7-18) mg/dl Creatinine (0.6-1.2) mg/dl POC Creatinine (0.6-1.3) mg/dl Est Cr Clr Drug Dosing ml/min Est GFR ( Amer) Est GFR (Non-Af Amer) BUN/Creatinine Ratio (10-20) Glucose (70-99) mg/dl POC Glucose (other) (70-99) mg/dl Calcium (8.5-10.1) mg/dl POC Ioniz Calcium Mary (1.12-1.32) mmol/l Phosphorus (2.5-4.9) mg/dl Magnesium (1.8-2.4) mg/dl Total Bilirubin (0.2-1) mg/dl AST (15-37) U/L ALT (12-78) U/L Alkaline Phosphatase (45-117) U/L Troponin I 0.288 H* 0.277 H* (0-0.045) ng/ml Total Protein (6.4-8.2) gm/dl Albumin (3.4-5.0) gm/dl Globulin (2.5-4.0) gm/dl Albumin/Globulin Ratio (0.9-2) Lipase (73-393) U/L Hepatitis C Ab Screen (Neg) 08/22/18 08/22/18 08/22/18 Range/Units 06:07 06:07 08:28 WBC 7.12 (4.8-10.8) K/uL RBC 3.59 L (4.2-5.4) M/uL Hgb 11.3 L (12.0-16.0) g/dL POC Hgb (12.0-16.0) g/dl Hct 34.2 L (37-47) % POC Hct (37-47) % MCV 95.3 (80-100) fL MCH 31.5 (25-34) pg MCHC 33.0 (32-36) g/dL RDW Std Deviation 47.9 H (36.4-46.3) fL RDW Coeff of Rashard 13.9 (11.5-14.5) % Plt Count 261 (130-400) K/uL MPV 9.5 (7.4-10.4) fL Immature Gran % (Auto) 0.1 % Neut % (Auto) 37.4 % Lymph % (Auto) 50.4 % Fisher % (Auto) 10.4 % Eos % (Auto) 1.4 % Baso % (Auto) 0.3 % Immature Gran # (Auto) 0.01 (0.00-0.02) K/uL Neut # (Auto) 2.66 (1.4-6.5) K/uL Lymph # (Auto) 3.59 H (1.2-3.4) K/uL Fisher # (Auto) 0.74 H (0.11-0.59) K/uL Eos # (Auto) 0.10 (0-0.5) K/uL Baso # (Auto) 0.02 (0-0.2) K/uL PT (9.0-12.0) Seconds INR (0.9-1.1) APTT 100.9 H* 42.4 H (21.0-31.0) Seconds PTT Ratio 3.7 1.6 POC D-Dimer (0-450) ng/mlFEU POC Sodium (135-144) mEq/L Sodium (136-145) mmol/L POC Potassium (3.3-5.0) mEq/L Potassium (3.5-5.1) mmol/L POC Chloride (101-112) mEq/L Chloride (98-107) mmol/L Carbon Dioxide (21-32) mmol/L POC Total CO2 (24-31) mEq/l Anion Gap (3-11) POC Anion Gap (16-25) mmol/L POC BUN (7-18) mg/dl BUN (7-18) mg/dl Creatinine (0.6-1.2) mg/dl POC Creatinine (0.6-1.3) mg/dl Est Cr Clr Drug Dosing ml/min Est GFR ( Amer) Est GFR (Non-Af Amer) BUN/Creatinine Ratio (10-20) Glucose (70-99) mg/dl POC Glucose (other) (70-99) mg/dl Calcium (8.5-10.1) mg/dl POC Ioniz Calcium Mary (1.12-1.32) mmol/l Phosphorus (2.5-4.9) mg/dl Magnesium (1.8-2.4) mg/dl Total Bilirubin (0.2-1) mg/dl AST (15-37) U/L ALT (12-78) U/L Alkaline Phosphatase (45-117) U/L Troponin I (0-0.045) ng/ml Total Protein (6.4-8.2) gm/dl Albumin (3.4-5.0) gm/dl Globulin (2.5-4.0) gm/dl Albumin/Globulin Ratio (0.9-2) Lipase (73-393) U/L Hepatitis C Ab Screen (Neg) 08/22/18 08/22/18 Range/Units 08:28 08:29 WBC (4.8-10.8) K/uL RBC (4.2-5.4) M/uL Hgb (12.0-16.0) g/dL POC Hgb (12.0-16.0) g/dl Hct (37-47) % POC Hct (37-47) % MCV (80-100) fL MCH (25-34) pg MCHC (32-36) g/dL RDW Std Deviation (36.4-46.3) fL RDW Coeff of Rashard (11.5-14.5) % Plt Count (130-400) K/uL MPV (7.4-10.4) fL Immature Gran % (Auto) % Neut % (Auto) % Lymph % (Auto) % Fisher % (Auto) % Eos % (Auto) % Baso % (Auto) % Immature Gran # (Auto) (0.00-0.02) K/uL Neut # (Auto) (1.4-6.5) K/uL Lymph # (Auto) (1.2-3.4) K/uL Fisher # (Auto) (0.11-0.59) K/uL Eos # (Auto) (0-0.5) K/uL Baso # (Auto) (0-0.2) K/uL PT (9.0-12.0) Seconds INR (0.9-1.1) APTT (21.0-31.0) Seconds PTT Ratio POC D-Dimer (0-450) ng/mlFEU POC Sodium (135-144) mEq/L Sodium 140 (136-145) mmol/L POC Potassium (3.3-5.0) mEq/L Potassium 3.7 (3.5-5.1) mmol/L POC Chloride (101-112) mEq/L Chloride 109 H (98-107) mmol/L Carbon Dioxide 26 (21-32) mmol/L POC Total CO2 (24-31) mEq/l Anion Gap 5.0 (3-11) POC Anion Gap (16-25) mmol/L POC BUN (7-18) mg/dl BUN 21 H (7-18) mg/dl Creatinine 0.67 (0.6-1.2) mg/dl POC Creatinine (0.6-1.3) mg/dl Est Cr Clr Drug Dosing 70.0 ml/min Est GFR ( Amer) 105.4 Est GFR (Non-Af Amer) 91.0 BUN/Creatinine Ratio 31.2 H (10-20) Glucose 92 (70-99) mg/dl POC Glucose (other) (70-99) mg/dl Calcium 8.1 L (8.5-10.1) mg/dl POC Ioniz Calcium Mary (1.12-1.32) mmol/l Phosphorus (2.5-4.9) mg/dl Magnesium 2.1 (1.8-2.4) mg/dl Total Bilirubin 0.2 (0.2-1) mg/dl AST 15 (15-37) U/L ALT 16 (12-78) U/L Alkaline Phosphatase 39 L (45-117) U/L Troponin I (0-0.045) ng/ml Total Protein 5.8 L (6.4-8.2) gm/dl Albumin 2.9 L (3.4-5.0) gm/dl Globulin 2.9 (2.5-4.0) gm/dl Albumin/Globulin Ratio 1.0 (0.9-2) Lipase (73-393) U/L Hepatitis C Ab Screen Neg (Neg) Imaging Data Radiologist's Impression: XR chest 1V portable HISTORY: 67 years-old Female Chest Pain acute atypical chest pain COMPARISON: Chest radiograph 01/07/2018 TECHNIQUE: Portable AP view of the chest FINDINGS: Cardiomediastinal and hilar silhouettes are within normal limits. No pneumothorax, pleural effusion, focal airspace consolidation or overt pulmonary edema. Bones of the chest appear grossly intact. IMPRESSION: No acute process. The above report was generated using voice recognition software. It may contain grammatical, syntax or spelling errors. Electronically signed by: Rafal Larsen M.D. 08/21/2018 8:54 PM ECG Data Attestation: I personally reviewed and interpreted this ECG as follows: Indication: chest pain Rate (beats per minute): 66 Rhythm: normal sinus Findings: + other (normal axis, normal interval) and + Q waves (in V2) Comparison ECG Date: from (01/07/18) Change: the following changes noted (TWI in V3 and lead 3. TWI V3 is new while lead 3 is old. ) Additional Comments: Repeat EKG at 2148 shows T wave flattening in lateral ira ds, otherwise unchanged. Blood Pressure Blood Pressure Findings: Normal blood pressure MDM Narrative The patient is a 67 year old white female w/ PMHx of RA who presents to the ED w/ CC of CP beginning x2 days ago. Etiologies such as cardiac ischemia, aortic dissection, pulmonary embolism, pneumonia, pneumothorax, musculoskeletal, infections, pericarditis, myocarditis, esophageal rupture, gastrointestinal, as well as others were entertained. Patient was seen and evaluated the bedside. The patient does complain of some central chest pressure this been intermittent and ongoing for several days. Patient denies any infectious symptoms. Patient does have a known history of RA. Patient states that she does have chest pains and from her artery but this feels different. Patient does have early family history in her mother with quadruple bypass in her 50s. Patient has no lower extremity swelling a recent car plane travel no history of DVT within the legs or lungs. Patient does not have any formal history of any heart or lung disease. The patient has had some negative cardiac stress test in the past per the patient. Patient is a non- smoker. Patient did have blood work completed along with EKG troponin chest x-ray and was given medications for symptomatic improvement. The patient does have some very subtle EKG changes. Patient's chest pain did improve. Given the subtle changes patient was ordered aspirin and nitro. Patient did have a positive troponin at 0.2. It is not been elevated in the past. Given the patient's history and physical exam and associated elevated troponin and additional subungual nitro and heparin were ordered and cards was consulted. I did speak the on-call hospitalist who agreed to further evaluate treat the patient. Patient was admitted to the medicine service pending cards consult. Additional nitro was ordered. The repeat EKG after some nitro did not show much in terms of acute change on ekg. Impression & Plan Non-ST elevation [place] (NSTEMI) Critical Care Time I have personally spent greater than 45 minutes of critical care time in the direct management of this patient. This includes bedside care, interpretation of diagnostic studies, and testing, discussion with consultants, patient, and family members, and other required patient management activities. This 45minutes is in excess of all separately billable procedures. Critical Care Time: Yes Total Critical Care Time: 45 Discharge Plan Visit Data *Final* Discharge Date/Time: 08/21/18 23:35 Chief Complaint: Chest Pain Stated Complaint: chest pains ED Provider: Cristian Bailon Discharge Problem: Non-ST elevation [place] (NSTEMI) Patient Disposition: Admitted As Inpatient Discharge Instructions Interventions: ED Discharge Assessment Last Done: 08/21/18 23:35 The scribe's documentation has been prepared under my direction and personally reviewed by me in its entirety. I confirm that the note above accurately reflects all work, treatment, procedures, and medical decision making performed by me.
--- NOTE | 2018-08-21 22:29 | History & Physical Report ---
Date of Service August 21, 2018 Assessment & Plan (1) Non-ST elevation [place] (NSTEMI): 67 y/o F Hx RA, HLD, hypothyroid. Presents with intermittent central, pressure-like CP for 2 days. She denies SOB, N/V, diaphoresis or radiation of the pain. She does report fatigue. Initial troponin in the ER is consistent with a NSTEMI. An EKG may show subtle inferior changes but was static on a repeat. The pt states that she is in the midst of an RA flare and is taking low-dose prednisone with MTX 1) NSTEMI - placed on full dose Heparin, NTG, narcotics as needed, ASA. She is statin intolerant. Cardiology is consulted as she will likely need to proceed to the matlab developer in due course. 2) RA with flare - cont prednisone - MTX Qwk 3) HLD - not currently treated due to statin-intolerance 4) Hypothyroid - cont Synthroid Full code - Heparin prophylaxis Total time for this admit including review of labs, meds, imaging, records - discussion with pt and ER attending - 40 min Present on Admission?: Yes History of Present Illness Chief Complaint: NSTEMI Primary Care Provider: Mk Marina MD 67 y/o F Hx RA, HLD, hypothyroid. Presents with intermittent central, pressure- like CP for 2 days. She denies SOB, N/V, diaphoresis or radiation of the pain. She does report fatigue. Initial troponin in the ER is consistent with a NSTEMI. An EKG may show subtle inferior changes but was static on a repeat. The pt states that she is in the midst of an RA flare and is taking low-dose prednisone with MTX PMH: 1) RA - not responsive to biologics - treated with MTX 2) Hypothyroidism 3) Presented with CP in 2013 and discharged following a normal stress test. 4) HLD - statin-intolerant Social: Does not smoke or drink Family: Mother with history of CAD and 4V CABG in her 50s Sister with CREST Father with cryptogenic neuropathy Allergies Allergy/AdvReac Type Severity Reaction Status Date / Time codeine Allergy Intermediate RASH Verified 08/21/18 21:55 Penicillins Allergy Intermediate RASH Verified 08/21/18 21:55 Sulfa (Sulfonamide Allergy Intermediate RASH Verified 08/21/18 21:55 Antibiotics) Home Medications Home Medications Medication Instructions Recorded Confirmed Type celecoxib [Celebrex] 200 mg PO BID 08/21/18 08/21/18 History diclofenac sodium [Voltaren] 2 g TOPICAL QID PRN 08/21/18 08/21/18 History duloxetine [Cymbalta] 60 mg PO DAILY 08/21/18 08/21/18 History estradiol 1 patch TOPICAL 2XWK 08/21/18 08/21/18 History folic acid 1 mg PO DAILY 08/21/18 08/21/18 History levothyroxine 50 mcg PO DAILY 08/21/18 08/21/18 History liothyronine [Cytomel] 5 mcg PO DAILY 08/21/18 08/21/18 History methotrexate sodium 6 tab PO WK 08/21/18 08/21/18 History multivitamin 1 tab PO DAILY 08/21/18 08/21/18 History pantoprazole 40 mg PO BID 08/21/18 08/21/18 History prednisone 5 mg PO DAILY 08/21/18 08/21/18 History trazodone 50 mg PO HS 08/21/18 08/21/18 History Past Med/Surg History Medical History RA (rheumatoid arthritis) (Chronic) Fibromyalgia (Chronic) Family history non-contributory Surgical History No pertinent past surgical history Family History Other Family history non-contributory Social History Feels Safe at Home: Yes Smoking Status: Never smoker Review of Systems Gen: Denies fevers, night sweats, rigors - reports fatigue an malaise x 2 days ENT: Denies congestion, throat pain, hearing loss Eyes: Denies acute visual changes CV: Central CP as per HPI Pulmonary: Denies SOB, cough, wheezing GI: Denies N/V, diarrhea, constipation Neuro: Denies acute or unilateral weakness, acute gait impairment, headache or acute visual changes Musculoskeletal: Chronic joint pain Endocrine: Denies polydipsia, polyuria Skin: Denies acute rashes or ulcers Physical Exam Vital Signs (Past 24 Hours): Last Vital Signs Temp 36.7 C 08/21/18 19:27 Pulse 72 08/21/18 22:15 Resp 19 08/21/18 22:15 BP 138/59 L 08/21/18 22:15 Pulse Ox 97 08/21/18 22:15 Physical Exam: General: AAO x 3, no distress ENT: No erythema or exudates, no thrush Eyes: AHSAN, EOMI Head and neck: Normocephalic, atraumatic, No JVD, neck is supple. Chest/heart: Nontender, S1,2, RRR, no murmurs, no gallops Lungs: CTAB, no wheezing or crackles Abdomen: Nontender, nondistended, BS+ Neuro: AAO x 3, speech is clear, no unilateral weakness or loss of sensation, coordination intact Musculoskeletal: No joint inflammation, muscle tenderness, FROM Skin: No acute rashes or ulcers Extremities: No clubbing, cyanosis, edema
[2018-08-21] MEDS ORDERED: HEPARIN STANDARD DEXTROSE 25,000 UNITS/500 ML IV SCH (23:15)
[2018-08-21] MEDS ORDERED: D5NSS + 20MEQ KCL 20 MEQ/1,000 ML BAG IV SCH (23:54)
[2018-08-21] MEDS ORDERED: ZOLPIDEM TARTRATE 5 MG TAB PO PRN (23:54)
[2018-08-21] MEDS ORDERED: MAGNESIUM HYDROXIDE SUSP 30 ML UDC PO PRN (23:54)
[2018-08-21] MEDS ORDERED: ALUMINUM/MAGNESIUM SUSP 30 ML UDC PO PRN (23:54)
[2018-08-21] MEDS ORDERED: Heparin IV Standard *NO* Bolus IV ONE (23:54)
[2018-08-21] MEDS ORDERED: POLYETHYLENE (MIRALAX) 17 GM PACK PO PRN (23:54)
[2018-08-21] MEDS ORDERED: ONDANSETRON INJ 2 MG/ML 2 ML VIAL IV PRN (23:54)
[2018-08-21] MEDS ORDERED: HYDROmorphone INJ 0.5 MG/0.5 ML SYR IV PRN (23:54)
[2018-08-21] MEDS ORDERED: ACETAMINOPHEN 325 MG TAB PO PRN (23:54)
[2018-08-22] MEDS: PANTOprazole 40 MG TAB PO SCH ×3 (00:35→21:23)
[2018-08-22] MEDS: TRAZODONE HCL 50 MG TAB PO SCH ×2 (00:36→21:22)
[2018-08-22 01:29] LABS: iSTAT Creatinine 0.7 mg/dl (0.6-1.3); iSTAT Hemoglobin 11.6 g/dl (12.0-16.0); iSTAT Ionized Calcium 1.2 mmol/l (1.12-1.32); iSTAT Potassium 3.4 mEq/L (3.3-5.0)
[2018-08-22] MEDS ORDERED: INFLUENZA ADMINISTRATION CHARGE ONE (01:30)
[2018-08-22] MEDS ORDERED: INFLUENZA VACCINE HIGH DOSE 65+ 0.5 ML SYR IM ONE (01:30)
[2018-08-22 04:57] LABS: Partial Thromboplastin Ratio > 5.1
[2018-08-22 05:25] LABS: Partial Thromboplastin Time > 139.0 Seconds (21.0-31.0)
[2018-08-22 06:17] LABS: Hematocrit (blood only) 34.2 % (37-47); Hemoglobin 11.3 g/dL (12.0-16.0); Mean Corpuscular Volume 95.3 fL (80-100); Mean Platelet Volume 9.5 fL (7.4-10.4); Platelet Count 261 K/uL (130-400); RDW Coefficient of Variation 13.9 % (11.5-14.5); RDW Standard Deviation 47.9 fL (36.4-46.3); Red Blood Count 3.59 M/uL (4.2-5.4); White Blood Count 7.12 K/uL (4.8-10.8)
[2018-08-22] MEDS: LEVOTHYROXINE SODIUM 50 MCG TABLET PO SCH (06:20)
[2018-08-22 07:15] LABS: Basophils # (auto) 0.02 K/uL (0-0.2); Basophils % (auto) 0.3 %; Eosinophils % (auto) 1.4 %; Immature Granulocytes # (auto) 0.01 K/uL (0.00-0.02); Immature Granulocytes % (auto) 0.1 %; Lymphocytes # (auto) 3.59 K/uL (1.2-3.4); Lymphocytes % (auto) 50.4 %; Monocytes # (auto) 0.74 K/uL (0.11-0.59); Monocytes % (auto) 10.4 %; Neutrophils # (auto) 2.66 K/uL (1.4-6.5); Neutrophils % (auto) 37.4 %
[2018-08-22 07:23] LABS: Partial Thromboplastin Ratio 3.7
[2018-08-22 07:30] LABS: Partial Thromboplastin Time 100.9 Seconds (21.0-31.0)
[2018-08-22] MEDS: ASPIRIN 81 MG ECTAB PO SCH (08:44)
[2018-08-22] MEDS: DULOXETINE HCL 60 MG CAP PO SCH (08:44)
[2018-08-22] MEDS: LIOTHYRONINE SODIUM 5 MCG TAB PO SCH (08:44)
[2018-08-22] MEDS: predniSONE 5 MG TAB PO SCH (08:44)
[2018-08-22 08:53] LABS: Partial Thromboplastin Ratio 1.6; Partial Thromboplastin Time 42.4 Seconds (21.0-31.0)
[2018-08-22] MEDS ORDERED: FOLIC ACID 1 MG TAB PO SCH ×2 (09:00→21:00)
[2018-08-22 09:14] LABS: Albumin Level 2.9 gm/dl (3.4-5.0); BUN Creatinine Ratio 31.2 (10-20); Calcium 8.1 mg/dl (8.5-10.1); Est GFR (African American) 105.4; Magnesium 2.1 mg/dl (1.8-2.4); Potassium 3.7 mmol/L (3.5-5.1)
[2018-08-22 09:16] LABS: Bilirubin,Total 0.2 mg/dl (0.2-1); Globulin 2.9 gm/dl (2.5-4.0); Total Protein 5.8 gm/dl (6.4-8.2)
[2018-08-22] MEDS ORDERED: MIDAZOLAM HCL 1 MG/ML 2ML VIAL ONE (11:20)
[2018-08-22] MEDS ORDERED: HEPARIN (PORCINE) 1000 UNIT/ML 10 ML (CATH LAB USE ONLY) ONE (11:20)
[2018-08-22] MEDS ORDERED: NiCARDipine HCL INJ 2.5 MG/ML 10 ML AMP ONE (11:20)
[2018-08-22] MEDS ORDERED: fentaNYL citrate 100 MCG/2 ML VIAL ONE (11:20)
[2018-08-22] MEDS ORDERED: NITROGLYCERIN/D5W 100MCG/ML 20ML SYR ONE (11:21)
[2018-08-22] MEDS ORDERED: LIDOCAINE HCL 1% 20 ML VIAL ONE (11:32)
[2018-08-22] MEDS ORDERED: EPTIFIBATIDE 2 MG/ML 10 ML VIAL (CATH LAB USE ONLY) ONE (12:20)
[2018-08-22] MEDS ORDERED: NITROGLYCERIN SL 0.4 MG/TAB TAB ONE (12:20)
[2018-08-22] MEDS ORDERED: EPTIFIBATIDE 0.75 MG/ML 75MG VIAL (CATH LAB USE ONLY) ONE (12:20)
[2018-08-22] MEDS ORDERED: TICAGRELOR 90 MG TAB PO ONE (12:24)
--- NOTE | 2018-08-22 12:25 | Cardiology Consultation ---
Date of Consultation August 22, 2018 Assessment & Plan (1) Acute coronary syndromes: The patient presented with a prolonged chest pain syndrome which likely represents an acute coronary syndrome. She demonstrates T-wave inversions diffusely also has an elevated troponin level. She has also had recurrent symptoms while on intravenous heparin. Case was discussed at length with Dr. Bronson and we have opted to take her to the cardiac catheterization laboratory urgently. (2) Elevated troponin: Troponin level has peaked at 0.288. We will continue to trend enzymes. (3) Abnormal ECG: The patient now demonstrates T-wave inversions in the inferior and anterolateral leads. These are new compared to her initial tracing. (4) Hypercholesterolemia: The patient has been intolerant to statins previously. History of Present Illness Attending Physician: Everton Mayer History of Present Illness Mrs. Card is a 67-year-old white female admitted yesterday with a chest pain syndrome, elevated troponin, and dynamic EKG changes. This consultation was order to assist in her cardiac management. Patient claims she was in her usual state of health until approximately 2 days prior to presentation. She began to note a pressure-type sensation in her central chest which will last for several seconds and resolve spontaneously. This would typically occur 6 for 7 times each day. This continued until the day of presentation when she developed a substernal chest pressure which became persistent lasting over 1 hour. The patient had no other associated symptoms such as shortness of breath, nausea, vomiting, diaphoresis, or radiation of the discomfort. The patient did experience significant fatigue and went to bed. She called her home from work and then proceeded to the emergency room for further care. On arrival here, she was noted to have some minor T-wave inversions in the inferolateral leads. Her initial troponin was elevated 0.212 and she was placed on intravenous heparin and admitted to the telemetry unit. Since her arrival to the floor, the patient has had several episodes of chest discomfort as described above. We have had a discussion regarding the need for an urgent cardiac catheterization. The patient has never known of a cardiac event. She has never had a cardiac catheterization performed previously. Past medical and surgical history 1. Hypercholesterolemia-statin intolerant 2. Hypothyroidism 3. Rheumatoid arthritis 4. GERD 5. Peripheral neuropathy 6. Vitamin-D deficiency 7. Depression 8. Hysterectomy 9. Migraine headaches 10. 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 Review of systems A 10 point review of systems was undertaken and negative except for described above. Allergies Allergy/AdvReac Type Severity Reaction Status Date / Time codeine Allergy Intermediate RASH Verified 08/21/18 21:55 Penicillins Allergy Intermediate RASH Verified 08/21/18 21:55 Sulfa (Sulfonamide Allergy Intermediate RASH Verified 08/21/18 21:55 Antibiotics) Home Medications Home Medications Medication Instructions Recorded Confirmed Type celecoxib [Celebrex] 200 mg PO BID 08/21/18 08/21/18 History diclofenac sodium [Voltaren] 2 g TOPICAL QID PRN 08/21/18 08/21/18 History duloxetine [Cymbalta] 60 mg PO DAILY 08/21/18 08/21/18 History estradiol 1 patch TOPICAL 2XWK 08/21/18 08/21/18 History folic acid 1 mg PO DAILY 08/21/18 08/21/18 History levothyroxine 50 mcg PO DAILY 08/21/18 08/21/18 History liothyronine [Cytomel] 5 mcg PO DAILY 08/21/18 08/21/18 History methotrexate sodium 6 tab PO WK 08/21/18 08/21/18 History multivitamin 1 tab PO DAILY 08/21/18 08/21/18 History pantoprazole 40 mg PO BID 08/21/18 08/21/18 History prednisone 5 mg PO DAILY 08/21/18 08/21/18 History trazodone 50 mg PO HS 08/21/18 08/21/18 History Patient History Medical History RA (rheumatoid arthritis) (Chronic) Fibromyalgia (Chronic) Family history non-contributory HLD (hyperlipidemia) Hypothyroid NSTEMI (non-ST elevated myocardial infarction) Surgical History No pertinent past surgical history Family History Other Family history non-contributory Social History Preferred Language: Latvian Communication Ability: Effective 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 HEENT exam is negative. Neck is supple with full carotid upstrokes. There are no carotid bruits. Jugular venous pressure is flat at 90. There is no thyromegaly. Cardiovascular exam reveals a regular rhythm with a normal S1 and S2. No S3, S4, or murmurs are noted. Lungs are clear without rales, rhonchi, or wheezes. Abdomen is soft and nontender without bruits. Extremities reveal intact radial artery and posterior tibial pulses bilaterally. There is no peripheral edema. Results & Data Laboratory Results CBC notes a hemoglobin of 11.3, hematocrit 34.2, white count 7.1, platelet count [id number]. Electrolytes note a sodium of 140, potassium 3.7, chloride 109, bicarb 26, BUN 21, creatinine 0.67, glucose of 110. Initial troponin was 0.212 with follow-up values of 0.288 and 0.277. Initial EKG notes sinus rhythm with baseline artifact. New second tracing notes sinus bradycardia with inferolateral T-wave inversions. A 3rd tracing notes sinus bradycardia with anterolateral T-wave and inferior T-wave inversions. Chest x-ray shows no acute disease. Diagnostic Findings Initial EKG notes sinus rhythm with baseline artifact. New second tracing notes sinus bradycardia with inferolateral T-wave inversions. A 3rd tracing notes sinus bradycardia with anterolateral T-wave and inferior T-wave inversions. Chest x-ray shows no acute disease.
[2018-08-22] MEDS ORDERED: ATROPINE SULFATE 0.1 MG/ML 10ML SYR IV PRN (12:42)
[2018-08-22] MEDS ORDERED: EPTIFIBATIDE BOLUS/DRIP IV STA ×2 (12:42→12:53)
--- NOTE | 2018-08-22 13:14 | Hospitalist Progress Note ---
Date of Service August 22, 2018 Assessment & Plan (1) Acute coronary syndromes: - Presented with acute chest pain in setting of elevated troponin. - Heparin drip started at admission. - Aspirin 81 mg qAM. - Has not tolerated statin in past due to myalgias; has baseline bradycardia, may not be able to tolerate beta susana. - Cardiology consulted, appreciate input. - EKG and Trop as noted below; Echo showed EF 50-55%, no wall motion abnormality. - Most recent documented stress echo was in Feb 2014; Plan for cardiac catheterization today. (2) Elevated troponin: - Trop elevated, peaked at 0.288 and now trending down in setting of ACS. - Treatment as noted above. (3) Abnormal ECG: - T wave inversions in inferior and derian-lateral leads. - Cardiac cath today as noted above. (4) Hypercholesterolemia: - Cannot tolerate statin therapy due to myalgias. (5) Carotid artery stenosis: - Carotid artery US in 2016 showed <50% ICA stenosis bilaterally. (6) RA (rheumatoid arthritis): - Continue home Prednisone - Continue folic acid as prescribed; no recent level is documented. (7) Hypothyroidism: - Continue Synthroid and Cytomel as prescribed. - Most recent level was 1.53 on 07/14/18. (8) Fibromyalgia: - Continue Cymbalta and Trazadone as prescribed. (9) Anemia: - Hemoglobin dropped to 11.3; baseline ~12-13. - Likely related to IV fluids. - No recent iron studies, B12 or Folate levels ordered -- consider evaluating if hgb continues to trend down. - Transfuse for hgb <9 in setting of cardiac disease. (10) DVT prophylaxis: - Heparin drip as noted above. FEN/GI: NPO; IV Fluids at 75 cc/hr; PPI PO BID. Dispo: Cardiology following, catheterization today. Supervising Physician Co-Signing Physician Notes Attending Attestation - Chart reviewed in detail, care plan d/w HERO Brooks. I agree w/ the rizo components of her documentation except patient has indeed suffered an NSTEMI 2nd to high-grade LAD lesion. Patient is s/p cath today with deployment of MARTITA to the LAD. LAD had a 99% stenosis. Appreciate cardiology consultation and assistance. Continue post-cath and post-NSTEMI care. BB, asa, brilinta, etc. Pt hemodynamically stable with stable labs. Everton Mayer MD Subjective Pt. had ongoing chest pain, now located near the sternum. Pain was located across entire chest last evening. Is described as dull pain, intermittent lasting 8-10 seconds. Denies shortness of breath, pain radiating to arm or jaw, nausea/vomiting. Currently has RA flare as well -- has pain in arms related to flair up. Takes Prednisone 5 mg PO daily as home, will continue unless stress dose steroids are indicated. 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 Review of Systems All systems reviewed & are unremarkable except as noted in HPI & below Constitutional: no fever, no chills and no weakness Respiratory: no cough, no dyspnea and no dyspnea on exertion Cardiovascular: + chest pain, + chest pain at rest and + chest pain with activity; no radiating jaw, neck or arm pain, no dyspnea, no dyspnea at rest, no palpitations, no lightheadedness, no syncope and no edema Gastrointestinal: no abdominal pain, no nausea, no vomiting and no constipation Genitourinary (Female): no dysuria and no difficulty urinating Musculoskeletal: + joint pain Allergy / Immunological: no rash Physical Exam Vital Signs (Past 24 Hours): Last Vital Signs Temp 37.1 C 08/22/18 04:00 Pulse 59 L 08/22/18 08:00 Resp 18 08/22/18 08:00 BP 139/59 L 08/22/18 08:00 Pulse Ox 97 08/22/18 08:00 Physical Exam: General: Resting comfortably in no apparent distress; A&OX3 HEENT: NC/AT; PERRLA with EOMI; [place] conjunctiva, MMM. Neck: Supple and nontender Cardiac: RRR w/o murmurs, gallops or rubs Lungs: CTA bilaterally; No rhonchi, wheezing, or rales Abdomen: Bowel normoactive X 4; Nontender to palpation Extremities: Warm. No edema present Neuro: No focal weakness Skin: No rash Results & Data Laboratory Results 08/22/18 08/22/18 08/22/18 Range/Units 08:29 08:28 08:28 WBC (4.8-10.8) K/uL RBC (4.2-5.4) M/uL Hgb (12.0-16.0) g/dL POC Hgb (12.0-16.0) g/dl Hct (37-47) % POC Hct (37-47) % MCV (80-100) fL MCH (25-34) pg MCHC (32-36) g/dL RDW Std Deviation (36.4-46.3) fL RDW Coeff of Rashard (11.5-14.5) % Plt Count (130-400) K/uL MPV (7.4-10.4) fL Immature Gran % (Auto) % Neut % (Auto) % Lymph % (Auto) % [place] % (Auto) % Eos % (Auto) % Baso % (Auto) % Immature Gran # (Auto) (0.00-0.02) K/uL Neut # (Auto) (1.4-6.5) K/uL Lymph # (Auto) (1.2-3.4) K/uL [place] # (Auto) (0.11-0.59) K/uL Eos # (Auto) (0-0.5) K/uL Baso # (Auto) (0-0.2) K/uL PT (9.0-12.0) Seconds INR (0.9-1.1) APTT 42.4 H (21.0-31.0) Seconds PTT Ratio 1.6 POC D-Dimer (0-450) ng/mlFEU POC Sodium (135-144) mEq/L Sodium 140 (136-145) mmol/L POC Potassium (3.3-5.0) mEq/L Potassium 3.7 (3.5-5.1) mmol/L POC Chloride (101-112) mEq/L Chloride 109 H (98-107) mmol/L Carbon Dioxide 26 (21-32) mmol/L POC Total CO2 (24-31) mEq/l Anion Gap 5.0 (3-11) POC Anion Gap (16-25) mmol/L POC BUN (7-18) mg/dl BUN 21 H (7-18) mg/dl Creatinine 0.67 (0.6-1.2) mg/dl POC Creatinine (0.6-1.3) mg/dl Est Cr Clr Drug Dosing 70.0 ml/min Est GFR ( Amer) 105.4 Est GFR (Non-Af Amer) 91.0 BUN/Creatinine Ratio 31.2 H (10-20) Glucose 92 (70-99) mg/dl POC Glucose (other) (70-99) mg/dl Calcium 8.1 L (8.5-10.1) mg/dl POC Ioniz Calcium Mary (1.12-1.32) mmol/l Phosphorus (2.5-4.9) mg/dl Magnesium 2.1 (1.8-2.4) mg/dl Total Bilirubin 0.2 (0.2-1) mg/dl AST 15 (15-37) U/L ALT 16 (12-78) U/L Alkaline Phosphatase 39 L (45-117) U/L Troponin I (0-0.045) ng/ml Total Protein 5.8 L (6.4-8.2) gm/dl Albumin 2.9 L (3.4-5.0) gm/dl Globulin 2.9 (2.5-4.0) gm/dl Albumin/Globulin Ratio 1.0 (0.9-2) Lipase (73-393) U/L Hepatitis C Ab Screen Neg (Neg) 08/22/18 08/22/18 08/22/18 Range/Units 06:07 06:07 06:07 WBC 7.12 (4.8-10.8) K/uL RBC 3.59 L (4.2-5.4) M/uL Hgb 11.3 L (12.0-16.0) g/dL POC Hgb (12.0-16.0) g/dl Hct 34.2 L (37-47) % POC Hct (37-47) % MCV 95.3 (80-100) fL MCH 31.5 (25-34) pg MCHC 33.0 (32-36) g/dL RDW Std Deviation 47.9 H (36.4-46.3) fL RDW Coeff of Rashard 13.9 (11.5-14.5) % Plt Count 261 (130-400) K/uL MPV 9.5 (7.4-10.4) fL Immature Gran % (Auto) 0.1 % Neut % (Auto) 37.4 % Lymph % (Auto) 50.4 % [place] % (Auto) 10.4 % Eos % (Auto) 1.4 % Baso % (Auto) 0.3 % Immature Gran # (Auto) 0.01 (0.00-0.02) K/uL Neut # (Auto) 2.66 (1.4-6.5) K/uL Lymph # (Auto) 3.59 H (1.2-3.4) K/uL [place] # (Auto) 0.74 H (0.11-0.59) K/uL Eos # (Auto) 0.10 (0-0.5) K/uL Baso # (Auto) 0.02 (0-0.2) K/uL PT (9.0-12.0) Seconds INR (0.9-1.1) APTT 100.9 H* (21.0-31.0) Seconds PTT Ratio 3.7 POC D-Dimer (0-450) ng/mlFEU POC Sodium (135-144) mEq/L Sodium (136-145) mmol/L POC Potassium (3.3-5.0) mEq/L Potassium (3.5-5.1) mmol/L POC Chloride (101-112) mEq/L Chloride (98-107) mmol/L Carbon Dioxide (21-32) mmol/L POC Total CO2 (24-31) mEq/l Anion Gap (3-11) POC Anion Gap (16-25) mmol/L POC BUN (7-18) mg/dl BUN (7-18) mg/dl Creatinine (0.6-1.2) mg/dl POC Creatinine (0.6-1.3) mg/dl Est Cr Clr Drug Dosing ml/min Est GFR ( Amer) Est GFR (Non-Af Amer) BUN/Creatinine Ratio (10-20) Glucose (70-99) mg/dl POC Glucose (other) (70-99) mg/dl Calcium (8.5-10.1) mg/dl POC Ioniz Calcium Mary (1.12-1.32) mmol/l Phosphorus (2.5-4.9) mg/dl Magnesium (1.8-2.4) mg/dl Total Bilirubin (0.2-1) mg/dl AST (15-37) U/L ALT (12-78) U/L Alkaline Phosphatase (45-117) U/L Troponin I 0.277 H* (0-0.045) ng/ml Total Protein (6.4-8.2) gm/dl Albumin (3.4-5.0) gm/dl Globulin (2.5-4.0) gm/dl Albumin/Globulin Ratio (0.9-2) Lipase (73-393) U/L Hepatitis C Ab Screen (Neg) 08/22/18 08/22/18 08/21/18 Range/Units 04:05 00:24 20:46 WBC (4.8-10.8) K/uL RBC (4.2-5.4) M/uL Hgb (12.0-16.0) g/dL POC Hgb (12.0-16.0) g/dl Hct (37-47) % POC Hct (37-47) % MCV (80-100) fL MCH (25-34) pg MCHC (32-36) g/dL RDW Std Deviation (36.4-46.3) fL RDW Coeff of Rashard (11.5-14.5) % Plt Count (130-400) K/uL MPV (7.4-10.4) fL Immature Gran % (Auto) % Neut % (Auto) % Lymph % (Auto) % [place] % (Auto) % Eos % (Auto) % Baso % (Auto) % Immature Gran # (Auto) (0.00-0.02) K/uL Neut # (Auto) (1.4-6.5) K/uL Lymph # (Auto) (1.2-3.4) K/uL [place] # (Auto) (0.11-0.59) K/uL Eos # (Auto) (0-0.5) K/uL Baso # (Auto) (0-0.2) K/uL PT (9.0-12.0) Seconds INR (0.9-1.1) APTT > 139.0 H* (21.0-31.0) Seconds PTT Ratio > 5.1 POC D-Dimer 167 (0-450) ng/mlFEU POC Sodium (135-144) mEq/L Sodium (136-145) mmol/L POC Potassium (3.3-5.0) mEq/L Potassium (3.5-5.1) mmol/L POC Chloride (101-112) mEq/L Chloride (98-107) mmol/L Carbon Dioxide (21-32) mmol/L POC Total CO2 (24-31) mEq/l Anion Gap (3-11) POC Anion Gap (16-25) mmol/L POC BUN (7-18) mg/dl BUN (7-18) mg/dl Creatinine (0.6-1.2) mg/dl POC Creatinine (0.6-1.3) mg/dl Est Cr Clr Drug Dosing ml/min Est GFR ( Amer) Est GFR (Non-Af Amer) BUN/Creatinine Ratio (10-20) Glucose (70-99) mg/dl POC Glucose (other) (70-99) mg/dl Calcium (8.5-10.1) mg/dl POC Ioniz Calcium Mary (1.12-1.32) mmol/l Phosphorus (2.5-4.9) mg/dl Magnesium (1.8-2.4) mg/dl Total Bilirubin (0.2-1) mg/dl AST (15-37) U/L ALT (12-78) U/L Alkaline Phosphatase (45-117) U/L Troponin I 0.288 H* (0-0.045) ng/ml Total Protein (6.4-8.2) gm/dl Albumin (3.4-5.0) gm/dl Globulin (2.5-4.0) gm/dl Albumin/Globulin Ratio (0.9-2) Lipase (73-393) U/L Hepatitis C Ab Screen (Neg) 08/21/18 08/21/18 08/21/18 Range/Units 20:45 20:35 20:35 WBC (4.8-10.8) K/uL RBC (4.2-5.4) M/uL Hgb (12.0-16.0) g/dL POC Hgb 11.6 L (12.0-16.0) g/dl Hct (37-47) % POC Hct 34 L (37-47) % MCV (80-100) fL MCH (25-34) pg MCHC (32-36) g/dL RDW Std Deviation (36.4-46.3) fL RDW Coeff of Rashard (11.5-14.5) % Plt Count (130-400) K/uL MPV (7.4-10.4) fL Immature Gran % (Auto) % Neut % (Auto) % Lymph % (Auto) % [place] % (Auto) % Eos % (Auto) % Baso % (Auto) % Immature Gran # (Auto) (0.00-0.02) K/uL Neut # (Auto) (1.4-6.5) K/uL Lymph # (Auto) (1.2-3.4) K/uL [place] # (Auto) (0.11-0.59) K/uL Eos # (Auto) (0-0.5) K/uL Baso # (Auto) (0-0.2) K/uL PT 10.1 (9.0-12.0) Seconds INR 1.0 (0.9-1.1) APTT 25.4 (21.0-31.0) Seconds PTT Ratio 0.9 POC D-Dimer (0-450) ng/mlFEU POC Sodium 140 (135-144) mEq/L Sodium (136-145) mmol/L POC Potassium 3.4 (3.3-5.0) mEq/L Potassium (3.5-5.1) mmol/L POC Chloride 101 (101-112) mEq/L Chloride (98-107) mmol/L Carbon Dioxide (21-32) mmol/L POC Total CO2 26 (24-31) mEq/l Anion Gap (3-11) POC Anion Gap 17.0 (16-25) mmol/L POC BUN 24 H (7-18) mg/dl BUN (7-18) mg/dl Creatinine (0.6-1.2) mg/dl POC Creatinine 0.7 (0.6-1.3) mg/dl Est Cr Clr Drug Dosing ml/min Est GFR ( Amer) Est GFR (Non-Af Amer) BUN/Creatinine Ratio (10-20) Glucose (70-99) mg/dl POC Glucose (other) 121 H (70-99) mg/dl Calcium (8.5-10.1) mg/dl POC Ioniz Calcium Mary 1.20 (1.12-1.32) mmol/l Phosphorus Cancelled (2.5-4.9) mg/dl Magnesium Cancelled (1.8-2.4) mg/dl Total Bilirubin (0.2-1) mg/dl AST (15-37) U/L ALT (12-78) U/L Alkaline Phosphatase (45-117) U/L Troponin I (0-0.045) ng/ml Total Protein (6.4-8.2) gm/dl Albumin (3.4-5.0) gm/dl Globulin (2.5-4.0) gm/dl Albumin/Globulin Ratio (0.9-2) Lipase (73-393) U/L Hepatitis C Ab Screen (Neg) 08/21/18 08/21/18 Range/Units 20:35 20:35 WBC 8.70 (4.8-10.8) K/uL RBC 3.83 L (4.2-5.4) M/uL Hgb 12.1 (12.0-16.0) g/dL POC Hgb (12.0-16.0) g/dl Hct 35.9 L (37-47) % POC Hct (37-47) % MCV 93.7 (80-100) fL MCH 31.6 (25-34) pg MCHC 33.7 (32-36) g/dL RDW Std Deviation 46.7 H (36.4-46.3) fL RDW Coeff of Rashard 13.9 (11.5-14.5) % Plt Count 305 (130-400) K/uL MPV 9.8 (7.4-10.4) fL Immature Gran % (Auto) 0.1 % Neut % (Auto) 51.8 % Lymph % (Auto) 34.8 % [place] % (Auto) 12.4 % Eos % (Auto) 0.7 % Baso % (Auto) 0.2 % Immature Gran # (Auto) 0.01 (0.00-0.02) K/uL Neut # (Auto) 4.50 (1.4-6.5) K/uL Lymph # (Auto) 3.03 (1.2-3.4) K/uL [place] # (Auto) 1.08 H (0.11-0.59) K/uL Eos # (Auto) 0.06 (0-0.5) K/uL Baso # (Auto) 0.02 (0-0.2) K/uL PT (9.0-12.0) Seconds INR (0.9-1.1) APTT (21.0-31.0) Seconds PTT Ratio POC D-Dimer (0-450) ng/mlFEU POC Sodium (135-144) mEq/L Sodium 139 (136-145) mmol/L POC Potassium (3.3-5.0) mEq/L Potassium 3.4 L (3.5-5.1) mmol/L POC Chloride (101-112) mEq/L Chloride 106 (98-107) mmol/L Carbon Dioxide 27 (21-32) mmol/L POC Total CO2 (24-31) mEq/l Anion Gap 7.0 (3-11) POC Anion Gap (16-25) mmol/L POC BUN (7-18) mg/dl BUN 23 H (7-18) mg/dl Creatinine 0.73 (0.6-1.2) mg/dl POC Creatinine (0.6-1.3) mg/dl Est Cr Clr Drug Dosing 62.6 ml/min Est GFR ( Amer) 98.8 Est GFR (Non-Af Amer) 85.2 BUN/Creatinine Ratio 31.8 H (10-20) Glucose 119 H (70-99) mg/dl POC Glucose (other) (70-99) mg/dl Calcium 8.7 (8.5-10.1) mg/dl POC Ioniz Calcium Mary (1.12-1.32) mmol/l Phosphorus 3.2 (2.5-4.9) mg/dl Magnesium 2.2 (1.8-2.4) mg/dl Total Bilirubin 0.2 (0.2-1) mg/dl AST 16 (15-37) U/L ALT 20 (12-78) U/L Alkaline Phosphatase 49 (45-117) U/L Troponin I 0.212 H* (0-0.045) ng/ml Total Protein 6.7 (6.4-8.2) gm/dl Albumin 3.3 L (3.4-5.0) gm/dl Globulin 3.4 (2.5-4.0) gm/dl Albumin/Globulin Ratio 1.0 (0.9-2) Lipase 88 (73-393) U/L Hepatitis C Ab Screen (Neg)
[2018-08-22] MEDS ORDERED: EPTIFIBATIDE 75 MG/100 ML VIAL IV SCH (13:30)
[2018-08-22] MEDS: SODIUM CHLORIDE 0.9% 1000ML 1,000 ML IV SCH (14:07)
[2018-08-22] MEDS ORDERED: [UNRECOGNIZED DRUG - REMARK] ONE (17:30)
[2018-08-22] MEDS: TICAGRELOR 90 MG TAB PO SCH (21:22)
[2018-08-23] MEDS: SODIUM CHLORIDE 0.9% 1000ML 1,000 ML IV SCH (01:39)
[2018-08-23] MEDS: LEVOTHYROXINE SODIUM 50 MCG TABLET PO SCH (05:49)
[2018-08-23 06:01] LABS: Hematocrit (blood only) 34.2 % (37-47); Hemoglobin 11.4 g/dL (12.0-16.0); Mean Corpuscular Hgb Conc 33.3 g/dL (32-36); Mean Platelet Volume 9.9 fL (7.4-10.4); Platelet Count 266 K/uL (130-400); RDW Standard Deviation 48.1 fL (36.4-46.3); White Blood Count 7.77 K/uL (4.8-10.8)
[2018-08-23 07:08] LABS: Albumin Level 2.8 gm/dl (3.4-5.0); BUN Creatinine Ratio 21.8 (10-20); Calcium 8.5 mg/dl (8.5-10.1); Creatinine Clr Calc Pharmacy 68.5 ml/min; Est GFR (African American) 104.9; Est GFR (Non-African American) 90.5; Magnesium 2.1 mg/dl (1.8-2.4); Potassium 3.8 mmol/L (3.5-5.1)
[2018-08-23 07:11] LABS: Bilirubin,Total 0.3 mg/dl (0.2-1); Globulin 2.9 gm/dl (2.5-4.0); Total Protein 5.7 gm/dl (6.4-8.2)
[2018-08-23] MEDS: ASPIRIN 81 MG ECTAB PO SCH (07:51)
[2018-08-23] MEDS: DULOXETINE HCL 60 MG CAP PO SCH (07:51)
[2018-08-23] MEDS: LIOTHYRONINE SODIUM 5 MCG TAB PO SCH (07:51)
[2018-08-23] MEDS: predniSONE 5 MG TAB PO SCH (07:51)
[2018-08-23] MEDS: PANTOprazole 40 MG TAB PO SCH (07:51)
[2018-08-23] MEDS: TICAGRELOR 90 MG TAB PO SCH (07:53)
[2018-08-23] MEDS ORDERED: CONSULT PHARMACY STA (11:24)
[2018-08-23] MEDS ORDERED: TICAGRELOR 90 MG TAB PO SCH (11:45)
--- NOTE | 2018-08-23 12:12 | Discharge Summary ---
Date of Service August 23, 2018 Admission HPI Per Admitting Provider 67 y/o F Hx RA, HLD, hypothyroid. Presents with intermittent central, pressure- like CP for 2 days. She denies SOB, N/V, diaphoresis or radiation of the pain. She does report fatigue. Initial troponin in the ER is consistent with a NSTEMI. An EKG may show subtle inferior changes but was static on a repeat. The pt states that she is in the midst of an RA flare and is taking low-dose prednisone with MTX Admission Exam Per Admitting Provider General: AAO x 3, no distress ENT: No erythema or exudates, no thrush Eyes: AHSAN, EOMI Head and neck: Normocephalic, atraumatic, No JVD, neck is supple. Chest/heart: Nontender, S1,2, RRR, no murmurs, no gallops Lungs: CTAB, no wheezing or crackles Abdomen: Nontender, nondistended, BS+ Neuro: AAO x 3, speech is clear, no unilateral weakness or loss of sensation, coordination intact Musculoskeletal: No joint inflammation, muscle tenderness, FROM Skin: No acute rashes or ulcers Extremities: No clubbing, cyanosis, edema Principal Diagnosis NSTEMI Discharge Exam General: Resting comfortably in no apparent distress; A&OX3 HEENT: NC/AT; PERRLA with EOMI; [place] conjunctiva, MMM. Neck: Supple and nontender Cardiac: RRR Lungs: CTA bilaterally Abdomen: Bowel normoactive X 4; Nontender to palpation Extremities: Warm. No edema present Neuro: No focal weakness Skin: No rash Discharge Data Allergies Allergy/AdvReac Type Severity Reaction Status Date / Time codeine Allergy Intermediate RASH Verified 08/21/18 21:55 Penicillins Allergy Intermediate RASH Verified 08/21/18 21:55 Sulfa (Sulfonamide Allergy Intermediate RASH Verified 08/21/18 21:55 Antibiotics) Consultations 08/21/18 22:01 ED Decision to Admit Stat 08/21/18 23:54 Consult Cardiology Routine Procedures Performed Operation Date: 08/22/18 11:15 Actual Procedures p Cath, Left with Cors and Vent - Anival Queen MD s Cineradiography w/Routine Exam - Anival Queen MD s Aspiration/PCI w/MARTITA for Stemi - Anival Queen MD Ordered Studies 08/22/18 11:17 CL Cath Imgs for PACS use only Stat CXR 08/21/18 Hospital Course (1) Acute coronary syndromes: Presented with acute chest pain in setting of elevated troponin. Heparin drip was started at admission. She received Aspirin 81 mg daily. Pt. has not tolerated statin therapy in the past due to myalgias. EKG showed T-wave inversions in the inferior and derian-lateral leads. Echo showed EF 50-55%, no wall motion abnormality. Cardiology consulted; s/p cardiac cath with placement of MARTITA in the LAD. Pt. was stable for discharge to home on 08/23/2018. Will follow up with cardiology as an outpatient. (2) Elevated troponin: Trop elevated, peaked at 0.288 prior to cardiac cath. MARTITA stent was placed, no indication for further testing. (3) Abnormal ECG: T wave inversions in inferior and derian-lateral leads. Cardiac cath as noted above. (4) Hypercholesterolemia: Cannot tolerate statin therapy due to myalgias. (5) Carotid artery stenosis: Carotid artery US in 2016 showed <50% ICA stenosis bilaterally. (6) RA (rheumatoid arthritis): Continued home Prednisone and Folic acid as prescribed. Home methotrexate was held, can be resumed on 08/29/18. Pt. will need to hold home Celebrex in setting of anti-platelet therapy. (7) Hypothyroidism: Continued Synthroid and Cytomel as prescribed. Most recent level was 1.53 on 07/14/18. (8) Fibromyalgia: Continued Cymbalta and Trazadone as prescribed. (9) Anemia: Hemoglobin baseline ~12-13. Had acute drop in hemoglobin during this admission, likely related to IV fluids. No transfusions were required. (10) DVT prophylaxis: Heparin drip prior to cardiac cath; was transitioned to PO Brilinta/Aspirin post procedure. Pt. was stable for discharge on 08/23/2018. Total Time Total Time Spent Total Time Spent (In Minutes): >30 minutes Total Time Includes: Examination of the Patient, Discharge Planning, Medication Reconciliation, Communication With Other Providers and Other Discharge Plan Discharge Items Patient Disposition: Home - Self-Care Reason For Visit: NSTEMI Discharge Diagnosis: NSTEMI Condition: Good Discharge Goals: Decrease discomfort, Diagnostic testing, Improve disease control, Improve function, Increase independence, Improve nutritional status, Prevent disease and Therapeutic intervention Activity: As commented below Non-emergency contact: Primary Care Provider and Dynamite Shooter Call non-emergency contact if: you have any medication questions, your symptoms worsen, your pain is not controlled, your pain is worsening, your pain is unusual for you, your pain is concerning for you and you have a fever Follow-up/Referrals: Mk Marina MD [Primary Care Provider] - Diet: Heart Healthy [facility] Provider Instructions: 1. NSTEMI * Status post cardiac catheterization on 08/22/2018 with placement of one drug eluting stent. * Please continue Aspirin 81 mg daily and Brilinta 90 mg twice daily. * Please take Nitroglycerin 0.4 mg sublingual tablet as needed for acute chest pain every 5 minutes. * Please follow up with cardiology as an outpatient (see instructions below) * Prescription for Brilinta and NTG [facility] to [facility]. 2. Rheumatoid Arthritis * Please resume Methotrexate as prescribed on Friday08/29/2018. * Please continue home Prednisone 5 mg daily. * Please discontinue use of Celebrex at home; you will also need to avoid NSAIDs, including ibuprofen, aleve, motrin, advil, etc. 3. Please schedule an appointment with your primary care provider in 1-2 weeks. 4. Please call your gas turbine mechanic or go to the ER if you develop the following: * Acute new onset chest pain or shortness of breath. * Nausea/vomiting, diarrhea or abdominal pain. POST CARDIAC CATHETERIZATION ACTIVITY RECOMMENDATIONS: Excess manipulation of the wrist should be avoided for the next 24-48 hours. * No lifting over 2 pounds (approximately a 1/2 gallon of milk) with the utilized arm for 24 hours. * No strenuous activity such as bowling or tennis for 3 days. * Keep the site of the procedure covered with a bandage for 24 hours. *You may shower the day after the procedure. Do not take a tub bath or submerge the puncture site in water for the next 3 days. *Do not operate any motorized equipment for 3 days. SPECIAL CARE INSTRUCTIONS: The site may be slightly bruised and sore following your procedure. Should any of the following occur, contact the DrKiah who performed your procedure. 1. Redness/inflammation, swelling, chills, or fever, or colored drainage at procedure site within 3-7 days after your procedure. 2. Coldness, discoloration, ongoing numbness, severe pain, or swelling. Expect mild tingling of hand and tenderness at the puncture site for up to three days. If this persists beyond three days, or other symptoms develop, notify the Dr. who performed your procedure. BLEEDING: If the procedure site on your wrist begins to bleed, do not panic 1. Place 1 or 2 fingers firmly just slightly above the insertion site to stop the bleeding. You may be able to feel your pulse as you hold pressure. 2. Lift your finger after 5 minutes to see if the bleeding has stopped. 3. Once the bleeding has stopped, gently wipe the wrist area clean with a bandage. * If the bleeding from your wrist does not stop after 10 minutes, or if there is a large amount of bleeding or spurting, call 911 (do not drive yourself to the hospital). SKIN IRRITATION: * You may experience some redness and/or swelling in the area where radiation was administered. If any skin irritation occurs, please contact your family physician. FOLLOW UP VISIT: Keep any scheduled doctor appointments. Prescriptions: New Brilinta 90 mg Tablet 90 mg PO BID Qty: 60 RF: 2 nitroglycerin 0.4 mg tablet, sublingual 0.4 mg Sublingual Q5M PRN (Reason: chest pain) Qty: 10 RF: 0 aspirin [Aspirin Low Dose] 81 mg tablet,delayed release (DR/EC) 81 mg PO DAILY Qty: 90 RF: 3 Continued multivitamin Tablet 1 tab PO DAILY RF: 0 trazodone 50 mg Tablet 50 mg PO HS RF: 0 prednisone 5 mg tablet 5 mg PO DAILY RF: 0 estradiol 0.05 mg/24 hr Patch Semiweekly 1 patch topical [id number] RF: 0 liothyronine [Cytomel] 5 mcg tablet 5 mcg PO DAILY RF: 0 methotrexate sodium 2.5 mg Tablet 6 tab PO WK RF: 0 levothyroxine 50 mcg tablet 50 mcg PO DAILY RF: 0 pantoprazole 40 mg tablet,delayed release (DR/EC) 40 mg PO BID RF: 0 folic acid 1 mg Tablet 1 mg PO DAILY RF: 0 duloxetine [Cymbalta] 60 mg capsule,delayed release(DR/EC) 60 mg PO DAILY RF: 0 diclofenac sodium [Voltaren] 1 % Gel 2 g TOPICAL QID PRN (Reason: Pain) RF: 0 Discontinued celecoxib [Celebrex] 200 mg capsule 200 mg PO BID RF: 0 Stand-Alone Forms: Call Back Authorization, [facility] Discharge Orders: Discharge Order (Routine); Ordered 08/23/18 Ordered By: Colleen Brooks Admission Data Admit Date/Time: 08/21/18 23:15 Attending Provider: Everton Mayer Admit Provider: Nathaniel Gomez Primary Care Provider: Mk Marina Other Providers: Nathaniel Gomez ; Elías Mascorro Service: Telemetry Other Interventions: Discharge Summary Assessment (RN) Last Done: 08/23/18 12:06 Pending Studies at Discharge: No DC Date/Time DO NOT enter until pt leaves facility: 08/23/18 14:12 Supervising Physician Co-Signing Physician Notes Attending Attestation & Discharge Note: Pt seen/examined, chart reviewed, discharge care plan d/w PA Colleen Brooks. I agree w/ the rizo components of her discharge summary. 67yo female with history of steroid-dependent RA and hypothyroidism who presented with NSTEMI. Ultimately underwent cardiac catheterization by Dr. 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 She underwent successful deployment of an LAD drug-eluting stent. Post-cath she did well with stable vitals, stable labs, and no recurrent ischemic symptoms. Discharge exam - gen - NAD neck - no JVD heart - RRR, s1, s2, no murmur lungs - CTA b/l abd - soft, NT, ND, BS+ ext - no edema vascular - right radial artery w/o hematoma or aneurysm She will d/c home on aspirin, brilinta and take both x 12 months and then aspirin for life thereafter. She is statin intolerant. Beta susana was deferred as she was often bradycardic during the stay. Consider addition of beta susana in the near future if heart rate will allow. Everton Mayer MD
--- NOTE | 2018-08-23 13:02 | Cardiology Progress Note ---
Date of Service August 23, 2018 Assessment & Plan (1) Acute coronary syndromes: The patient had placement of drug-eluting stent in the mid LAD yesterday by Dr. Bronson. Continue dual platelet therapy for least 1 year. The patient will follow up in my office as an outpatient. (2) Elevated troponin: Troponin peaked at 1.6. (3) Abnormal ECG: Minor anterior T-wave inversions noted. (4) Hypercholesterolemia: Statin intolerant. (5) Aortic valve insufficiency: Mild in degree on current echocardiogram. Subjective Mrs. Card is resting comfortably in bed without complaints of chest pain or dyspnea. She has been ambulatory this morning without difficulty. Her the bedside. We have discussed the findings of her cardiac catheterization. Physical Exam Vital Signs (Past 24 Hours): Last Vital Signs Temp 36.5 C 08/23/18 12:10 Pulse 75 08/23/18 12:10 Resp 18 08/23/18 12:10 BP 130/69 08/23/18 12:10 Pulse Ox 100 08/23/18 12:10 Physical Exam: In general this is a well-developed well-nourished white female in no acute distress. HEENT exam is negative. Neck is supple with full carotid upstrokes. There are no carotid bruits. Jugular venous pressure is flat at 90. There is no thyromegaly. Cardiovascular exam reveals a regular rhythm with a normal S1 and S2. No S3, S4, or murmurs are noted. Lungs are clear without rales, rhonchi, or wheezes. Abdomen is soft and nontender without bruits. Extremities noted a dressing over the right radial artery. No bruit. There is no peripheral edema. Results & Data Laboratory Results Laboratory Results - last 24 hr 08/22/18 08/22/18 08/23/18 13:05 19:02 05:38 WBC RBC Hgb Hct MCV MCH MCHC RDW Std Deviation RDW Coeff of Rashard Plt Count MPV Sodium 142 Potassium 3.8 Chloride 109 H Carbon Dioxide 26 Anion Gap 7.0 BUN 15 Creatinine 0.68 Est Cr Clr Drug Dosing 68.5 Est GFR ( Amer) 104.9 Est GFR (Non-Af Amer) 90.5 BUN/Creatinine Ratio 21.8 H Glucose 89 Calcium 8.5 Magnesium 2.1 Total Bilirubin 0.3 AST 24 ALT 17 Alkaline Phosphatase 42 L Troponin I 0.324 H* 1.600 H* Total Protein 5.7 L Albumin 2.8 L Globulin 2.9 Albumin/Globulin Ratio 1.0 08/23/18 05:39 WBC 7.77 RBC 3.60 L Hgb 11.4 L Hct 34.2 L MCV 95.0 MCH 31.7 MCHC 33.3 RDW Std Deviation 48.1 H RDW Coeff of Rashard 14.0 Plt Count 266 MPV 9.9 Sodium Potassium Chloride Carbon Dioxide Anion Gap BUN Creatinine Est Cr Clr Drug Dosing Est GFR ( Amer) Est GFR (Non-Af Amer) BUN/Creatinine Ratio Glucose Calcium Magnesium Total Bilirubin AST ALT Alkaline Phosphatase Troponin I Total Protein Albumin Globulin Albumin/Globulin Ratio Diagnostic Findings telemetry monitor is benign.
--- NOTE | 2018-08-24 07:57 | Operative Report ---
DATE OF OPERATION: 08/22/2018 INDICATIONS: Unstable angina, non-ST elevated MS anterolateral ischemic changes in a 67-year-old female, not in congestive heart failure with a longstanding history of rheumatoid arthritis, hypercholesterolemia. PROCEDURE PERFORMED: Left heart catheterization, coronary cineangiography, PCI with drug-eluting stent x1 mid left anterior descending artery, radiological interpretation and supervision. Upon arrival in the [facility], the patient prepped and draped in usual sterile fashion. After local anesthesia with lidocaine, a 6-Cuban sheath was placed in the right radial artery. Intra-arterial nicardipine and nitroglycerin were administered. The sheath was aspirated and flushed. A 5-Cuban diagnostic TIG 4.0 catheter was advanced over wire under fluoroscopic guidance to the central circulation, where it was aspirated and flushed. After confirmation of adequate waveform, it was advanced into the left main. Cineangiograms of the left coronary artery were obtained and reviewed. The catheter was used to gauge the origin of the right coronary artery. Cineangiograms of the right coronary artery were obtained and reviewed. The catheter used to cross the aortic valve in retrograde fashion. Left ventricular end diastolic pressure was measured. Catheter was removed from the left ventricle to the aorta under continuous pressure monitoring, removed the body over the wire. The sheath was aspirated and flushed. A 6-Cuban EBU 3.5 guiding catheter was advanced over wire and fluoroscopic guidance to the central circulation, where it was aspirated and flushed. After confirmation of adequate waveforms, it was advanced into the left main. Cineangiograms of the left anterior descending artery obtained and reviewed. Intravenous heparin was administered and titrated to an ACT on the order of 250-300 seconds, intravenous Integrilin was administered a priori. A 0.014-inch Paint Technician wire was advanced through the guiding catheter across the area of stenosis of the apical LAD. A 2.0 Mini Trek 15 angioplasty catheter was placed into the mid left anterior descending artery immediately distal to the first diagonal branch, inflated to maximum pressure for less than a minute and balloon was withdrawn. A 2.25 Xience 23 stent was positioned in the mid left anterior descending artery, inflated to maximum pressure of less than a minute. Balloon was withdrawn. The stented segment was postdilated on multiple occasions to maximum pressure using a 2.5 NC Trek 15. Balloon and wire were removed. Final cineangiograms were obtained and the guiding catheter was removed from the left main under fluoroscopic guidance, removed from the body over the wire, the sheath was aspirated and flushed. The external compression device was deployed over the right radial artery. The patient was returned to her room in good condition. COMPLICATIONS: None. FINDINGS: Left main is normal. Left anterior descending artery is moderate in caliber with a mid 99% stenosis, mainly distal to the first diagonal branch. The remainder of the LAD and the first diagonal branch are free of significant disease. Left circumflex, circumflex marginal, and posterolateral branches are free of significant disease. A large ramus intermedius arising from the trifurcation of the left main has proximal luminal irregularity. The right coronary artery, posterior extension of the right coronary, posterolateral branches arising from it and the PDA are all free of significant disease. Left ventricular end diastolic pressure was normal. No significant aortic valve gradient is demonstrated. Final cineangiograms demonstrated no residual stenosis, normal cover dissection, ROCHELLE grade 3 flow throughout the LAD and the first diagonal branch. IMPRESSION: Successful angioplasty with drug-eluting stent placement, left anterior descending artery. RECOMMENDATIONS: Dual antiplatelet therapy based on DAPT score. I attest to the content of the Intraoperative Record and any orders documented therein. Any exception s are noted below.
== END 2018-08-23 14:12 | disposition home or self-care (01) | DRG 247 ==
LOC: ED 19:26 → SUATTDRO 23:15 → 2E 23:15

== ENCOUNTER 2019-02-01 17:41 | Observation (INO) ==
[2019-02-01 18:07] LABS: Basophils # (auto) 0.01 K/uL (0-0.2); Basophils % (auto) 0.2 %; Eosinophils # (auto) 0.09 K/uL (0-0.5); Eosinophils % (auto) 1.5 %; Hematocrit (blood only) 34.3 % (37-47); Hemoglobin 11.7 g/dL (12.0-16.0); Lymphocytes # (auto) 2.12 K/uL (1.2-3.4); Lymphocytes % (auto) 34.6 %; Mean Corpuscular Hgb Conc 34.1 g/dL (32-36); Mean Platelet Volume 9.3 fL (7.4-10.4); Monocytes # (auto) 0.52 K/uL (0.11-0.59); Monocytes % (auto) 8.5 %; Neutrophils # (auto) 3.38 K/uL (1.4-6.5); Neutrophils % (auto) 55.2 %; Platelet Count 307 K/uL (130-400); RDW Coefficient of Variation 14.1 % (11.5-14.5); RDW Standard Deviation 47.5 fL (36.4-46.3); Red Blood Count 3.69 M/uL (4.2-5.4); White Blood Count 6.12 K/uL (4.8-10.8)
--- NOTE | 2019-02-01 18:21 | XRay Report ---
XR chest 1V portable CLINICAL HISTORY: 68 years-old Female presenting with Chest Pain. TECHNIQUE: Portable upright AP view of the chest was obtained. COMPARISON: 08/21/2018. FINDINGS: Cardiomediastinal silhouette normal. Coronary stents in place. Lungs are mildly hyperinflated. No foc al opacity. No large effusion or pneumothorax. Osseous structures normal. Upper abdomen normal. IMPRESSION: 1. No acute cardiopulmonary disease. Electronically signed by: Chato Celeste M.D. 02/01/2019 6:19 PM
[2019-02-01 18:22] LABS: Partial Thromboplastin Ratio 0.9; Partial Thromboplastin Time 25.6 Seconds (21.0-31.0); Prothrombin Time 10.2 Seconds (9.0-12.0)
[2019-02-01] MEDS ORDERED: NITROGLYCERIN SL 0.4 MG/TAB TAB SL STA (18:23)
[2019-02-01] MEDS ORDERED: NITROGLYCERIN SL 0.4 MG/TAB TAB SL PRN ×2 (18:24→22:51)
[2019-02-01 18:26] LABS: Alanine Aminotransferase 41 U/L (12-78); Albumin Level 3.6 gm/dl (3.4-5.0); Aspartate Aminotransferase 33 U/L (15-37); Blood Urea Nitrogen 22 mg/dl (7-18); Calcium 8.8 mg/dl (8.5-10.1); Carbon Dioxide 24 mmol/L (21-32); Chloride 108 mmol/L (98-107); Est GFR (African American) 79.3; Est GFR (Non-African American) 68.5; Glucose 103 mg/dl (70-99); Potassium 3.9 mmol/L (3.5-5.1); Sodium 140 mmol/L (136-145)
[2019-02-01 18:31] LABS: Albumin Globulin Ratio 1.1 (0.9-2); Alkaline Phosphatase 64 U/L (45-117); Bilirubin,Total 0.2 mg/dl (0.2-1); Globulin 3.4 gm/dl (2.5-4.0); Troponin I < 0.015 ng/ml (0-0.045)
[2019-02-01] MEDS ORDERED: ASPIRIN CHEW 324 MG PO STA (19:49)
[2019-02-01 20:17] LABS: Phosphorus 4.5 mg/dl (2.5-4.9)
--- NOTE | 2019-02-01 20:20 | History & Physical Report ---
Date of Service February 01, 2019 Assessment & Plan (1) Chest pain: 68-year-old female was admitted on 01 February 2019 for chest pain and exertional shortness of breath. Chest pain, shortness of breath: Reportedly on and off for the past 3 weeks, both exertional and at rest, including waking from sleep. - On chart review, patient had a cardiac catheterization and single MARTITA placed back in August 2018. Echocardiogram in August 2018 noted EF 50 to 55%, mild AR, MR, and TR. At home is on aspirin, nitroglycerin as needed, Brilinta, and venlafaxine. Dr. 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 - In ED, borderline bradycardic, not hypertensive, normal room SpO2. WBC 6. D- dimer negative. Troponin at 1756 was negative. Initial EKG is NSR 67. pCXR without acute disease. - In ED, treated with nitroglycerin sublingual. Is presently asymptomatic during this H&P. - Will keep on cardiac monitors. Serial troponin and EKGs. Consult cardiology for AM. Anemia: Admit hemoglobin 11.7, with baseline around 12's. Ongoing medical issues: - Hyperlipidemia: Reportedly statin intolerant. - Hypothyroidism: Continue home levothyroxine and liothyronine. - Rheumatoid arthritis: Continue home methotrexate. Denies any current flare, therefore is not on prednisone. - GERD: Continue home pantoprazole - Insomnia, ? night terrors: Continue home trazodone. - Fibromyalgia. Code status: Full code. Diet: Heart healthy. DVT prophy: Lovenox. PT/OT: Deferred. Disbo: Admit for observation to [facility] telemetry. (2) Shortness of breath: (3) Anemia: (4) Hypercholesterolemia: (5) Hypothyroidism: (6) RA (rheumatoid arthritis): (7) GERD (gastroesophageal reflux disease): (8) Insomnia: (9) Fibromyalgia: History of Present Illness Primary Care Provider: Mk Marina MD 68-year-old female presents for evaluation for chest pain and exertional shortness of breath. She has a known history of coronary disease and received a single drug-eluting stent for an NSTEMI back in August 2018. She states for the past three weeks she has been in [place]. During that time she has noticed some substernal chest pain with mild radiation towards her back that occurs both with exertion and at rest but only lasts for a few seconds. She also noticed some shortness of breath and it being "a little hard" to breathe when walking up steps. She attributed most of this to being at a higher altitude. However, upon returning home yesterday her symptoms persisted to include waking from sleep last night with chest pain. She did use nitroglycerin once last week with resolution of symptoms. She denies concurrent nausea or vomiting, diaphoresis, radiation to her arms or neck, fevers or known recent illness, injuries, or other acute concerns. - Past medical history includes hyperlipidemia, rheumatoid arthritis, hypothyroidism, CAD, NSTEMI, GERD, insomnia, night terrors, endometriosis. - Past surgical history includes hysterectomy. - Social history includes denying ever using tobacco or alcohol products. Lives at home with . Allergies Allergy/AdvReac Type Severity Reaction Status Date / Time codeine Allergy Intermediate RASH Verified 08/21/18 21:55 Penicillins Allergy Intermediate RASH Verified 08/21/18 21:55 Sulfa (Sulfonamide Allergy Intermediate RASH Verified 08/21/18 21:55 Antibiotics) [id number] Reductase AdvReac Muscle Pain Unverified 02/01/19 20:06 Inhibitor Home Medications Home Medications Medication Instructions Recorded Confirmed Type diclofenac sodium [Voltaren] 2 g TOPICAL QID PRN 08/21/18 02/01/19 History folic acid 1 mg PO DAILY 08/21/18 02/01/19 History levothyroxine 50 mcg PO DAILY 08/21/18 02/01/19 History liothyronine [Cytomel] 5 mcg PO DAILY 08/21/18 02/01/19 History methotrexate sodium 8 tab PO WK 08/21/18 02/01/19 History multivitamin 1 tab PO DAILY 08/21/18 02/01/19 History trazodone 50 mg PO HS 08/21/18 02/01/19 History nitroglycerin 0.4 mg SUBLINGUAL Q5M PRN #10 tab 08/23/18 02/01/19 Rx aspirin [Aspirin Low Dose] 81 mg PO DAILY #90 tab 08/25/18 02/01/19 Rx ticagrelor 90 mg tablet 90 mg PO BID #60 tab 11/23/18 02/01/19 Rx venlafaxine ER 75 mg 75 mg PO DAILY #30 cap 12/02/18 02/01/19 Rx capsule,extended release 24 hr venlafaxine ER 37.5 mg 37.5 mg PO DAILY 30 Days #30 cap 12/23/18 02/01/19 Rx capsule,extended release 24 hr pantoprazole 40 mg tablet,delayed 40 mg PO DAILY tab 12/31/18 02/01/19 History release acetaminophen [Tylenol Arthritis 1,300 mg PO Q12H 02/01/19 02/01/19 History Pain] ascorbic acid (vitamin C) 500 mg PO DAILY 02/01/19 02/01/19 History metoprolol succinate 12.5 mg PO DAILY 02/01/19 02/01/19 History omega 4-num-pin-fish oil 2 tab PO DAILY 02/01/19 02/01/19 History Past Med/Surg History Medical History RA (rheumatoid arthritis) (Chronic) Fibromyalgia (Chronic) Family history non-contributory HLD (hyperlipidemia) Hypothyroid NSTEMI (non-ST elevated myocardial infarction) Surgical History No pertinent past surgical history Family History Other Family history non-contributory Social History Preferred Language: Tamazight Communication Ability: Effective Business Continuity Planner Required: No Beliefs That Will Affect Care: None Current Living Situation: Family Feels Safe at Home: Yes Smoking Status: Never smoker Hx Alcohol Use: No Hx Substance Use: No Review of Systems Review of Systems: Constitutional: Denies fevers, chills, focal weakness Eyes: Denies any visual loss or diplopia ENT: Denies any ear/nose/throat pain or difficulty speaking or swallowing Respiratory: Denies any dyspnea, cough, hemoptysis Cardiovascular: Positive chest pain. Denies peripheral edema. Gastrointestinal: Denies any abdominal pain, nausea/vomiting/diarrhea Musculoskeletal: Denies any acute extremity pains, myalgias, or focal weakness. Positive baseline hand and joint pain with RA. Skin: Denies any known acute rashes or lesions Neuro: Denies any headache, acute focal weakness or numbness, or difficulties with speech or swallow. Hematologic: Notes history of easy bruising while on antiplatelet agents. Physical Exam Physical Exam: GENERAL: Awake, alert, well-appearing and speaking comfortably in full sentences, in no acute distress HENT: Normocephalic, atraumatic. Oropharynx unremarkable. EYES: Normal conjunctiva. Sclera non-icteric. NECK: Inspection normal. Non-tender. Supple and full ROM. No nuchal rigidity. CARDIAC: +S1S2 regular bradycardia, no murmurs. RESPIRATORY: Clear to auscultation. No wheezes or rales. Normal respiratory effort. GI: +BS, soft, non-distended. No tenderness to palpation. No rebound or guarding. EXTREMITIES: No pedal edema or calf tenderness. Moving all extremities naturally and easily. Some areas of varying ecchymosis. NEURO: No gross neuro deficits. Results & Data Vital Signs (Past 12 Hours) Vital Signs Temp Pulse Resp BP Pulse Ox 02/01/19 20:01 63 18 146/66 H 98 02/01/19 19:31 57 L 20 136/66 98 02/01/19 19:00 59 L 13 133/66 100 02/01/19 18:31 67 22 129/68 98 02/01/19 18:11 64 18 137/49 L 99 02/01/19 17:58 72 16 96 02/01/19 17:44 36.9 C 72 18 145/69 H 98 Laboratory Results 02/01/19 02/01/19 02/01/19 Range/Units 18:01 17:56 17:56 WBC (4.8-10.8) K/uL RBC (4.2-5.4) M/uL Hgb (12.0-16.0) g/dL Hct (37-47) % MCV (80-100) fL MCH (25-34) pg MCHC (32-36) g/dL RDW Std Deviation (36.4-46.3) fL RDW Coeff of Rashard (11.5-14.5) % Plt Count (130-400) K/uL MPV (7.4-10.4) fL Immature Gran % (Auto) % Neut % (Auto) % Lymph % (Auto) % Barron % (Auto) % Eos % (Auto) % Baso % (Auto) % Immature Gran # (Auto) (0.00-0.02) K/uL Neut # (Auto) (1.4-6.5) K/uL Lymph # (Auto) (1.2-3.4) K/uL Barron # (Auto) (0.11-0.59) K/uL Eos # (Auto) (0-0.5) K/uL Baso # (Auto) (0-0.2) K/uL PT 10.2 (9.0-12.0) Seconds INR 1.0 (0.9-1.1) APTT 25.6 (21.0-31.0) Seconds PTT Ratio 0.9 POC D-Dimer 292 (0-450) ng/mlFEU Sodium 140 (136-145) mmol/L Potassium 3.9 (3.5-5.1) mmol/L Chloride 108 H (98-107) mmol/L Carbon Dioxide 24 (21-32) mmol/L Anion Gap 8.0 (3-11) BUN 22 H (7-18) mg/dl Creatinine 0.87 (0.6-1.2) mg/dl Est Cr Clr Drug Dosing 52.0 ml/min Est GFR ( Amer) 79.3 Est GFR (Non-Af Amer) 68.5 BUN/Creatinine Ratio 25.0 H (10-20) Glucose 103 H (70-99) mg/dl Calcium 8.8 (8.5-10.1) mg/dl Phosphorus Pending Total Bilirubin 0.2 (0.2-1) mg/dl AST 33 (15-37) U/L ALT 41 (12-78) U/L Alkaline Phosphatase 64 (45-117) U/L Troponin I < 0.015 (0-0.045) ng/ml Total Protein 7.0 (6.4-8.2) gm/dl Albumin 3.6 (3.4-5.0) gm/dl Globulin 3.4 (2.5-4.0) gm/dl Albumin/Globulin Ratio 1.1 (0.9-2) Lipase 98 (73-393) U/L 02/01/19 Range/Units 17:56 WBC 6.12 (4.8-10.8) K/uL RBC 3.69 L (4.2-5.4) M/uL Hgb 11.7 L (12.0-16.0) g/dL Hct 34.3 L (37-47) % MCV 93.0 (80-100) fL MCH 31.7 (25-34) pg MCHC 34.1 (32-36) g/dL RDW Std Deviation 47.5 H (36.4-46.3) fL RDW Coeff of Rashard 14.1 (11.5-14.5) % Plt Count 307 (130-400) K/uL MPV 9.3 (7.4-10.4) fL Immature Gran % (Auto) 0.0 % Neut % (Auto) 55.2 % Lymph % (Auto) 34.6 % Barron % (Auto) 8.5 % Eos % (Auto) 1.5 % Baso % (Auto) 0.2 % Immature Gran # (Auto) 0.00 (0.00-0.02) K/uL Neut # (Auto) 3.38 (1.4-6.5) K/uL Lymph # (Auto) 2.12 (1.2-3.4) K/uL Barron # (Auto) 0.52 (0.11-0.59) K/uL Eos # (Auto) 0.09 (0-0.5) K/uL Baso # (Auto) 0.01 (0-0.2) K/uL PT (9.0-12.0) Seconds INR (0.9-1.1) APTT (21.0-31.0) Seconds PTT Ratio POC D-Dimer (0-450) ng/mlFEU Sodium (136-145) mmol/L Potassium (3.5-5.1) mmol/L Chloride (98-107) mmol/L Carbon Dioxide (21-32) mmol/L Anion Gap (3-11) BUN (7-18) mg/dl Creatinine (0.6-1.2) mg/dl Est Cr Clr Drug Dosing ml/min Est GFR ( Amer) Est GFR (Non-Af Amer) BUN/Creatinine Ratio (10-20) Glucose (70-99) mg/dl Calcium (8.5-10.1) mg/dl Phosphorus Total Bilirubin (0.2-1) mg/dl AST (15-37) U/L ALT (12-78) U/L Alkaline Phosphatase (45-117) U/L Troponin I (0-0.045) ng/ml Total Protein (6.4-8.2) gm/dl Albumin (3.4-5.0) gm/dl Globulin (2.5-4.0) gm/dl Albumin/Globulin Ratio (0.9-2) Lipase (73-393) U/L Medications Administered Discontinued Medications Aspirin (Aspirin) 243 mg PO NOW STA Stop: 02/01/19 19:50 Last Admin: 02/01/19 20:06 Dose: 243 mg Documented by: [id number] Nitroglycerin (Nitrostat) 0.4 mg SL NOW STA Stop: 02/01/19 18:24 Last Admin: 02/01/19 18:27 Dose: 0.4 mg Documented by: [id number] Code Status & VTE Plan Code Status Full code VTE Prophylaxis Plan VTE Prophylaxis will be ordered: Yes Supervising Physician Co-Signing Physician Notes Patient seen and examined, chart reviewed, case discussed with Dr. Borja and I agree with his assessment and plan as documented above. Briefly, patient is a 68yo C female with known CAD s/p NSTEMI with MARTITA to proximal LAD in August 2018 presenting with chest discomfort, PRABHAKAR. Patient reports a lot of increased stress lately. She was in [place] for the last three weeks assisting her daughter with a home remodeling project. She has also been dealing with some banking problems that have caused her a lot of stress. Patient's pain is relieved with Nitro No clinical evidence of failure On exam she is afebrile, hemodynamically stable, nontoxic in appearance, presently chest pain free Skin - intact, no rash HEENT - NC/AT, PERRL, EOMI, MMM, neck supple, no JVD Heart - +S1/S2, regular, no m/r/g Lungs - CTA, no rales/rhonchi/wheezes Abd - +BS, soft, NT/ND Ext - no edema Labs and images reviewed. Troponin and D-dimer negative. CXR unremarkable. EKG with no evidence of acute ischemia Assessment/Plan: 68yo C female with history of CAD s/p MARTITA to prox LAD in August 2018, presently on DAPT with ASA and Brillinta, HLP, RA presenting with chest discomfort, PRABHAKAR. Low suspicion for ACS at this time. Most likely stress related. However, given patient's risk factors will place on observation, trend troponins. Remainder of plan as above PG Care Time/CCT Total # of Minutes Spent Total Time Spent with Patient: Total time spent is greater than 50% in coordination of care (as documented) at patient's floor/unit and/or counseling patient: Resident Activity Tracking Resident Involvement: Resident Care Provided Care Provided: Adult Hospital Medicine
--- NOTE | 2019-02-01 21:32 | Emergency Department Note ---
Entered by Cheryl Jeong acting as a scribe for History of Present Illness General Chief complaint: Chest Pain Stated complaint: CHEST PAIN- CARDIAC HX 08/21 Time Seen by Provider: 02/01/19 17:51 Source: patient History of Present Illness Onset (ago): day(s) 1 Location: chest Radiation: back Maximum Pain Intensity: 6 Current Pain Intensity: 6 Quality: + other (pressure) Exacerbated By: + none Associated symptoms: + denies other symptoms (denies abdominal pain. denies swelling in legs), + cough, + diaphoresis, + fever/chills (negative fever), + nausea/vomiting (negative vomiting), + shortness of breath and + other (hot flashes) The patient is a 68 year old female with a history of a NSTEMI and coronary stent who presents to the Emergency Room with complaints of chest pain and shortness of breath. The patient stated that she was in [place] the last few weeks and had felt these symptoms, but believed it may be due to the high elevation. When she returned home a day ago, she noticed that her chest pain was still present, along with nausea, hot flashes, chills, and diaphoresis. She describes the chest pain as a "pressure" in the center of her chest, and states that the pain radiates to her back occasionally. The patient rates her pain at a 6/10 and reports that her blood pressure is higher than usual. She did notice some sharp chest pains a few weeks ago, but took Nitro which resolved her symptoms. She had not taken any Nitro prior to arrival. She denies abdominal pain, swelling in legs, and recent trauma or falls. She has no history of smoking, and no history of blood clots. The patient does also report increased anxiety over the past few days. Home Medications Home Medications Medication Instructions Recorded Confirmed Type diclofenac sodium [Voltaren] 2 g TOPICAL QID PRN 08/21/18 02/01/19 History folic acid 1 mg PO DAILY 08/21/18 02/01/19 History levothyroxine 50 mcg PO DAILY 08/21/18 02/01/19 History liothyronine [Cytomel] 5 mcg PO DAILY 08/21/18 02/01/19 History methotrexate sodium 8 tab PO WK 08/21/18 02/01/19 History multivitamin 1 tab PO DAILY 08/21/18 02/01/19 History trazodone 50 mg PO HS 08/21/18 02/01/19 History nitroglycerin 0.4 mg SUBLINGUAL Q5M PRN #10 tab 08/23/18 02/01/19 Rx aspirin [Aspirin Low Dose] 81 mg PO DAILY #90 tab 08/25/18 02/01/19 Rx ticagrelor 90 mg tablet 90 mg PO BID #60 tab 11/23/18 02/01/19 Rx venlafaxine ER 75 mg 75 mg PO DAILY #30 cap 12/02/18 02/01/19 Rx capsule,extended release 24 hr venlafaxine ER 37.5 mg 37.5 mg PO DAILY 30 Days #30 cap 12/23/18 02/01/19 Rx capsule,extended release 24 hr pantoprazole 40 mg tablet,delayed 40 mg PO DAILY tab 12/31/18 02/01/19 History release acetaminophen [Tylenol Arthritis 1,300 mg PO Q12H 02/01/19 02/01/19 History Pain] ascorbic acid (vitamin C) 500 mg PO DAILY 02/01/19 02/01/19 History metoprolol succinate 12.5 mg PO DAILY 02/01/19 02/01/19 History omega 2-jix-ozv-fish oil 2 tab PO DAILY 02/01/19 02/01/19 History Allergies Allergy/AdvReac Type Severity Reaction Status Date / Time codeine Allergy Intermediate RASH Verified 08/21/18 21:55 Penicillins Allergy Intermediate RASH Verified 08/21/18 21:55 Sulfa (Sulfonamide Allergy Intermediate RASH Verified 08/21/18 21:55 Antibiotics) Cygcygs-Dfx-Dqc Reductase AdvReac Muscle Pain Unverified 02/01/19 20:06 Inhibitor Past Med/Surg History Medical History RA (rheumatoid arthritis) (Chronic) Fibromyalgia (Chronic) Family history non-contributory HLD (hyperlipidemia) Hypothyroid NSTEMI (non-ST elevated myocardial infarction) Surgical History No pertinent past surgical history Family History Other Family history non-contributory Social History Preferred Language: Yi Communication Ability: Effective 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 and A total of 10 systems reviewed and were otherwise negative Physical Exam Vital Signs Vital Signs - 24 hr 02/01/19 17:44 02/01/19 17:58 02/01/19 18:11 Temperature 36.9 C Temperature Source Oral Sepsis Recent Fever Within 48 Hours No Sepsis New/Unexplained Change in Mental Status No Sepsis Action Taken by Nursing No Action Required Pulse Rate 72 72 64 Pulse Rate from SpO2 Sensor 64 Pulse Rhythm Regular Respiratory Rate 18 16 18 Respiratory Effort / Characteristics Non-Labored Respiratory Depth Normal Normal Blood Pressure 145/69 H 137/49 L Blood Pressure Mean 94 78 Pulse Oximetry 98 96 99 Oxygen Delivery Method Room Air Room Air Room Air 02/01/19 18:31 02/01/19 19:00 02/01/19 19:31 Temperature Temperature Source Sepsis Recent Fever Within 48 Hours Sepsis New/Unexplained Change in Mental Status Sepsis Action Taken by Nursing Pulse Rate 67 59 L 57 L Pulse Rate from SpO2 Sensor 70 60 56 L Pulse Rhythm Respiratory Rate 22 13 20 Respiratory Effort / Characteristics Respiratory Depth Blood Pressure 129/68 133/66 136/66 Blood Pressure Mean 88 88 89 Pulse Oximetry 98 100 98 Oxygen Delivery Method Room Air Room Air Room Air 02/01/19 20:01 Temperature Temperature Source Sepsis Recent Fever Within 48 Hours Sepsis New/Unexplained Change in Mental Status Sepsis Action Taken by Nursing Pulse Rate 63 Pulse Rate from SpO2 Sensor 65 Pulse Rhythm Respiratory Rate 18 Respiratory Effort / Characteristics Respiratory Depth Blood Pressure 146/66 H Blood Pressure Mean 92 Pulse Oximetry 98 Oxygen Delivery Method Room Air GENERAL: Wearing glasses. Well appearing, well nourished, NAD, non-toxic. EYE EXAM: Normal conjunctiva. PERRL, no anisocoria and EOM's grossly intact w/o pain. OROPHARYNX: Moist mucous membranes. Grossly normal dentition. NECK: Supple, no nuchal rigidity, no adenopathy, non-tender. No signs of meningismus. LUNGS: Clear to auscultation. Normal chest wall mechanics. HEART: NSR, no MRG. ABDOMEN: Abdomen soft, non-tender, normo-active bowel sounds, no masses, no rebound or guarding. BACK: No CVA TTP. SKIN: Small areas of bruising over bilateral lower extremities. No rashes. UPPER EXTREMITIES: Upper extremities are grossly normal. LOWER EXTREMITIES: Negative Renetta's sign bilaterally. No pitting edema. No calf pain. NEURO EXAM: A&O x3, cranial nerves II-XII grossly intact, normal speech, moves all 4 extremities on command w/o issue. Course 1809: Past medical records reviewed. The patient was evaluated in room A12B. A complete history and physical exam was performed. 1909: I rechecked the patient, who states that her pain has improved after receiving Nitroglycerin. 1916: Upon reevaluation, I discussed findings and results with the patient. She verbalized agreement of the treatment plan. I spoke with Mayi Duran of the [facility] Hospitalist Service. The patient will be evaluated for further management and care. Administered Medications Discontinued Medications Aspirin (Aspirin) 243 mg PO NOW STA Stop: 02/01/19 19:50 Last Admin: 02/01/19 20:06 Dose: 243 mg Documented by: [id number] Nitroglycerin (Nitrostat) 0.4 mg SL NOW STA Stop: 02/01/19 18:24 Last Admin: 02/01/19 18:27 Dose: 0.4 mg Documented by: [id number] Medical Decision Making Differential Diagnosis Differential diagnosis includes: cardiac ischemia, aortic dissection, pulmonary embolism, pneumonia, pneumothorax, musculoskeletal, infections, pericarditis, myocarditis, esophageal rupture, gastrointestinal, as well as others were entertained. Medical Records Attestation: I reviewed the patient's medical records. Home Medications Current Medication List: was personally reviewed by me Laboratory Data Attestation: I reviewed the patient's lab results. Result diagrams: 02/01/19 17:56 02/01/19 17:56 Lab Results 02/01/19 02/01/19 02/01/19 Range/Units 17:56 17:56 17:56 WBC 6.12 (4.8-10.8) K/uL RBC 3.69 L (4.2-5.4) M/uL Hgb 11.7 L (12.0-16.0) g/dL Hct 34.3 L (37-47) % MCV 93.0 (80-100) fL MCH 31.7 (25-34) pg MCHC 34.1 (32-36) g/dL RDW Std Deviation 47.5 H (36.4-46.3) fL RDW Coeff of Rashard 14.1 (11.5-14.5) % Plt Count 307 (130-400) K/uL MPV 9.3 (7.4-10.4) fL Immature Gran % (Auto) 0.0 % Neut % (Auto) 55.2 % Lymph % (Auto) 34.6 % Millard % (Auto) 8.5 % Eos % (Auto) 1.5 % Baso % (Auto) 0.2 % Immature Gran # (Auto) 0.00 (0.00-0.02) K/uL Neut # (Auto) 3.38 (1.4-6.5) K/uL Lymph # (Auto) 2.12 (1.2-3.4) K/uL Millard # (Auto) 0.52 (0.11-0.59) K/uL Eos # (Auto) 0.09 (0-0.5) K/uL Baso # (Auto) 0.01 (0-0.2) K/uL PT 10.2 (9.0-12.0) Seconds INR 1.0 (0.9-1.1) APTT 25.6 (21.0-31.0) Seconds PTT Ratio 0.9 POC D-Dimer (0-450) ng/mlFEU Sodium 140 (136-145) mmol/L Potassium 3.9 (3.5-5.1) mmol/L Chloride 108 H (98-107) mmol/L Carbon Dioxide 24 (21-32) mmol/L Anion Gap 8.0 (3-11) BUN 22 H (7-18) mg/dl Creatinine 0.87 (0.6-1.2) mg/dl Est Cr Clr Drug Dosing 52.0 ml/min Est GFR ( Amer) 79.3 Est GFR (Non-Af Amer) 68.5 BUN/Creatinine Ratio 25.0 H (10-20) Glucose 103 H (70-99) mg/dl Calcium 8.8 (8.5-10.1) mg/dl Phosphorus 4.5 (2.5-4.9) mg/dl Total Bilirubin 0.2 (0.2-1) mg/dl AST 33 (15-37) U/L ALT 41 (12-78) U/L Alkaline Phosphatase 64 (45-117) U/L Troponin I < 0.015 (0-0.045) ng/ml Total Protein 7.0 (6.4-8.2) gm/dl Albumin 3.6 (3.4-5.0) gm/dl Globulin 3.4 (2.5-4.0) gm/dl Albumin/Globulin Ratio 1.1 (0.9-2) Lipase 98 (73-393) U/L 02/01/19 Range/Units 18:01 WBC (4.8-10.8) K/uL RBC (4.2-5.4) M/uL Hgb (12.0-16.0) g/dL Hct (37-47) % MCV (80-100) fL MCH (25-34) pg MCHC (32-36) g/dL RDW Std Deviation (36.4-46.3) fL RDW Coeff of Rashard (11.5-14.5) % Plt Count (130-400) K/uL MPV (7.4-10.4) fL Immature Gran % (Auto) % Neut % (Auto) % Lymph % (Auto) % Millard % (Auto) % Eos % (Auto) % Baso % (Auto) % Immature Gran # (Auto) (0.00-0.02) K/uL Neut # (Auto) (1.4-6.5) K/uL Lymph # (Auto) (1.2-3.4) K/uL Millard # (Auto) (0.11-0.59) K/uL Eos # (Auto) (0-0.5) K/uL Baso # (Auto) (0-0.2) K/uL PT (9.0-12.0) Seconds INR (0.9-1.1) APTT (21.0-31.0) Seconds PTT Ratio POC D-Dimer 292 (0-450) ng/mlFEU Sodium (136-145) mmol/L Potassium (3.5-5.1) mmol/L Chloride (98-107) mmol/L Carbon Dioxide (21-32) mmol/L Anion Gap (3-11) BUN (7-18) mg/dl Creatinine (0.6-1.2) mg/dl Est Cr Clr Drug Dosing ml/min Est GFR ( Amer) Est GFR (Non-Af Amer) BUN/Creatinine Ratio (10-20) Glucose (70-99) mg/dl Calcium (8.5-10.1) mg/dl Phosphorus (2.5-4.9) mg/dl Total Bilirubin (0.2-1) mg/dl AST (15-37) U/L ALT (12-78) U/L Alkaline Phosphatase (45-117) U/L Troponin I (0-0.045) ng/ml Total Protein (6.4-8.2) gm/dl Albumin (3.4-5.0) gm/dl Globulin (2.5-4.0) gm/dl Albumin/Globulin Ratio (0.9-2) Lipase (73-393) U/L Imaging Data Radiologist's Impression: Radiology results as stated below per my review and the radiologist's interpretation: XR chest 1V portable CLINICAL HISTORY: 68 years-old Female presenting with Chest Pain. TECHNIQUE: Portable upright AP view of the chest was obtained. COMPARISON: 08/21/2018. FINDINGS: Cardiomediastinal silhouette normal. Coronary stents in place. Lungs are mildly hyperinflated. No focal opacity. No large effusion or pneumothorax. Osseous structures normal. Upper abdomen normal. IMPRESSION: 1. No acute cardiopulmonary disease. Electronically signed by: Chato Celeste M.D. 02/01/2019 6:19 PM ECG Data Attestation: I personally reviewed and interpreted this ECG as follows: Indication: chest pain Rate (beats per minute): 67 Rhythm: normal sinus Findings: + other (normal intervals. normal axis. no sts changes. ) and + T-wave inversion (in lead 3) Comparison ECG Date: from (August 22, 2018) Change: the following changes noted (Resolution of TWI anteriolaterally) Blood Pressure Blood Pressure Findings: Elevated blood pressure Blood Pressure Disposition: further management by hospitalist ASHU Torres The patient is a 68 year old female with a history of a NSTEMI and coronary stent who presents to the Emergency Room with complaints of chest pain and shortness of breath. Patient was seen and evaluated the bedside. The patient did present with chest pains. The patient states there is been ongoing for several weeks has been somewhat stress related but does describe it as a central. Nonradiating. The patient states that she did take nitro which did improve her discomfort. The patient is a prior history of an STEMI status post MARITTA stent to the LAD. The patient's prior medical records were reviewed. The patient is on both aspirin and Brilinta. The patient is fairly well-appearing at the bedside. Patient is a low risk Wells score. Patient did have a d-dimer that was not elevated. Patient's EKG does not appear to be unchanged. The patient does have a normal white count and the patient has virtually normal hemoglobin. Given the patient' s story with improvement with nitro and prior history the patient does have a heart score 5. I did speak with the hospitalist agreed to further evaluate treat the patient. The patient did relate that her pain improved with nitro. Patient was given the rest of a full dose aspirin. Impression & Plan Atypical chest pain, Anemia Discharge Plan Visit Data Chief Complaint: Chest Pain Stated Complaint: CHEST PAIN- CARDIAC HX 08/21 ED Provider: Cristian Bailon Discharge Problem: Atypical chest pain, Anemia Discharge Instructions Interventions: ED Discharge Assessment Last Done: 02/01/19 21:33 Discharge Problem: Anemia Qualifiers: Anemia type: unspecified type Qualified Code(s): D64.9 - Anemia, unspecified The scribe's documentation has been prepared under my direction and personally reviewed by me in its entirety. I confirm that the note above accurately reflects all work, treatment, procedures, and medical decision making performed by me.
[2019-02-01] MEDS ORDERED: ONDANSETRON INJ 2 MG/ML 2 ML VIAL IV PRN (22:51)
[2019-02-01] MEDS ORDERED: TRAZODONE HCL 50 MG TAB PO SCH (22:51)
[2019-02-01] MEDS ORDERED: ACETAMINOPHEN 325 MG TAB PO SCH (23:15)
[2019-02-01] MEDS: TICAGRELOR 90 MG TAB PO SCH (23:29)
[2019-02-02] MEDS ORDERED: LEVOTHYROXINE SODIUM 50 MCG TABLET PO SCH (06:30)
[2019-02-02] MEDS ORDERED: MULTIVITAMIN TAB PO SCH (09:00)
[2019-02-02] MEDS ORDERED: VENLAFAXINE HCL XR 75 MG CAPXR PO SCH (09:00)
[2019-02-02] MEDS ORDERED: ENOXAPARIN INJ 40 MG/0.4 ML SYR SQ SCH (09:00)
[2019-02-02] MEDS ORDERED: ACETAMINOPHEN 325 MG TAB PO SCH (09:00)
[2019-02-02] MEDS ORDERED: FOLIC ACID 1 MG TAB PO SCH (09:00)
[2019-02-02] MEDS ORDERED: LIOTHYRONINE SODIUM 5 MCG TAB PO SCH (09:00)
[2019-02-02] MEDS ORDERED: PANTOprazole 40 MG TAB PO SCH (09:00)
[2019-02-02] MEDS ORDERED: ASPIRIN 81 MG ECTAB PO SCH (09:00)
[2019-02-02] MEDS ORDERED: VENLAFAXINE HCL XR 37.5 MG CAPXR PO SCH (09:00)
[2019-02-02] MEDS: TICAGRELOR 90 MG TAB PO SCH (09:25)
--- NOTE | 2019-02-02 13:04 | Cardiology Consultation ---
Date of Consultation February 02, 2019 Assessment & Plan (1) Atypical chest pain: The patient's description of chest discomfort does not represent coronary ischemia. Her symptoms resolved with physical activity. Her EKG is normal and her troponin I levels are undetectable. No need for further cardiac evaluation at this time. Stable for hospital discharge. (2) CAD (coronary artery disease): The patient suffered a non ST elevation [place] back in August 2018. A drug- eluting stent placed in the mid LAD. Remains on aspirin and Brilinta. (3) Hypertension: Adequate control on current medical regimen. (4) Hypercholesterolemia: The patient is intolerant to statins. History of Present Illness Attending Physician: Dann Olguin History of Present Illness Mrs. Card is a 68-year-old white female admitted yesterday with a chest pain syndrome, This consultation was ordered to assist in her cardiac management. The patient claims she is in a usual state of health until approximately 1 week ago. While visiting her daughter in [place] she began to experience prolonged episodes of substernal chest tightness. There were no other associated symptoms such as shortness of breath, nausea, vomiting, diaphoresis, or radiation of the discomfort. The patient explains that exercise resolved her symptoms. She was walking 2-1/2 miles every day without difficulty. She explains that she was under a great deal of emotional stress as her Bank had lost several 1000s of dollars of her savings. The patient's recent cardiac history began in August 2018 when she presented with a non ST elevation [place]. Cardiac catheterization revealed a tight mid LAD stenosis. A drug-eluting stent (Xience 2.25 x 23 mm) was placed in that location. The only other coronary lesion noted were luminal irregularities within the ramus intermedius. The patient is currently participating cardiac rehabilitation without difficulty. Currently, patient is resting comfortably in bed without complaints. She is anxious for hospital discharge. Past medical and surgical history 1. Coronary artery disease-see above 2. LAD MARTITA-August 2018 3. Hypercholesterolemia-statin intolerant 4. Hypothyroidism 5. Rheumatoid arthritis 6. GERD 7. Peripheral neuropathy 8. Vitamin-D deficiency 9. Depression 10. Hysterectomy 11. Migraine headaches 12. 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 Review of systems A 10 point review of systems was undertaken and negative except for described above. Allergies Allergy/AdvReac Type Severity Reaction Status Date / Time codeine Allergy Intermediate RASH Verified 08/21/18 21:55 Penicillins Allergy Intermediate RASH Verified 08/21/18 21:55 Sulfa (Sulfonamide Allergy Intermediate RASH Verified 08/21/18 21:55 Antibiotics) Xclmjpq-Poa-Mxa Reductase AdvReac Muscle Pain Unverified 02/01/19 20:06 Inhibitor Home Medications Home Medications Medication Instructions Recorded Confirmed Type diclofenac sodium [Voltaren] 2 g TOPICAL QID PRN 08/21/18 02/01/19 History folic acid 1 mg PO DAILY 08/21/18 02/01/19 History levothyroxine 50 mcg PO DAILY 08/21/18 02/01/19 History liothyronine [Cytomel] 5 mcg PO DAILY 08/21/18 02/01/19 History methotrexate sodium 8 tab PO WK 08/21/18 02/01/19 History multivitamin 1 tab PO DAILY 08/21/18 02/01/19 History trazodone 50 mg PO HS 08/21/18 02/01/19 History nitroglycerin 0.4 mg SUBLINGUAL Q5M PRN #10 tab 08/23/18 02/01/19 Rx aspirin [Aspirin Low Dose] 81 mg PO DAILY #90 tab 08/25/18 02/01/19 Rx ticagrelor 90 mg tablet 90 mg PO BID #60 tab 11/23/18 02/01/19 Rx venlafaxine ER 75 mg 75 mg PO DAILY #30 cap 12/02/18 02/01/19 Rx capsule,extended release 24 hr venlafaxine ER 37.5 mg 37.5 mg PO DAILY 30 Days #30 cap 12/23/18 02/01/19 Rx capsule,extended release 24 hr pantoprazole 40 mg tablet,delayed 40 mg PO DAILY tab 12/31/18 02/01/19 History release acetaminophen [Tylenol Arthritis 1,300 mg PO Q12H 02/01/19 02/01/19 History Pain] ascorbic acid (vitamin C) 500 mg PO DAILY 02/01/19 02/01/19 History metoprolol succinate 12.5 mg PO DAILY 02/01/19 02/01/19 History omega 5-ohr-tff-fish oil 2 tab PO DAILY 02/01/19 02/01/19 History Patient History Medical History RA (rheumatoid arthritis) (Chronic) Fibromyalgia (Chronic) Family history non-contributory HLD (hyperlipidemia) Hypothyroid NSTEMI (non-ST elevated myocardial infarction) Surgical History No pertinent past surgical history Family History Other Family history non-contributory Social History Preferred Language: Nepali Communication Ability: Effective 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 HEENT exam is negative. Neck is supple with full carotid upstrokes. There are no carotid bruits. Jugular venous pressure is flat at 90. There is no thyromegaly. Cardiovascular exam reveals a regular rhythm with a normal S1 and S2. No S3, S4, or murmurs are noted. Lungs are clear without rales, rhonchi, or wheezes. Abdomen is soft and nontender without bruits. Extremities reveal intact radial artery and posterior tibial pulses bilaterally. There is no peripheral edema. Results & Data Vital Signs (Past 12 Hours) Vital Signs Temp Pulse Pulse Resp BP BP Pulse Ox 02/02/19 10:04 36.5 C 57 L 16 130/77 113/61 98 02/02/19 07:25 66 02/02/19 07:13 36.5 C 57 L 16 130/77 98 02/02/19 04:49 36.7 C 63 18 113/61 95 02/02/19 01:20 60 Laboratory Results CBC notes hemoglobin of 11.7, hematocrit 34.3, white count 6.1, and a platelet count of [id number]. Electrolytes note a sodium of 140, potassium 3.9, chloride 1 await, bicarb 24, BUN 22, creatinine 0.87, glucose of 103. Three troponin I levels were undetectable less than 0.015. Diagnostic Findings EKG notes normal sinus rhythm without abnormalities. Chest x-ray shows no acute disease. hydroponics grower is benign. PG Care Time/CCT Total # of Minutes Spent Total Time Spent with Patient: Total time spent is greater than 50% in coordination of care (as documented) at patient's floor/unit and/or counseling patient:
[2019-02-06] MEDS ORDERED: metHOTREXate sodium 2.5 MG TAB PO SCH (09:00)
--- NOTE | 2019-02-08 21:45 | Discharge Summary ---
Date of Service February 02, 2019 Admission HPI Per Admitting Provider 68-year-old female presents for evaluation for chest pain and exertional shortness of breath. She has a known history of coronary disease and received a single drug-eluting stent for an NSTEMI back in August 2018. She states for the past three weeks she has been in [place]. During that time she has noticed some substernal chest pain with mild radiation towards her back that occurs both with exertion and at rest but only lasts for a few seconds. She also noticed some shortness of breath and it being "a little hard" to breathe when walking up steps. She attributed most of this to being at a higher al titude. However, upon returning home yesterday her symptoms persisted to include waking from sleep last night with chest pain. She did use nitroglycerin once last week with resolution of symptoms. She denies concurrent nausea or vomiting, diaphoresis, radiation to her arms or neck, fevers or known recent illness, injuries, or other acute concerns. - Past medical history includes hyperlipidemia, rheumatoid arthritis, hypothyroidism, CAD, NSTEMI, GERD, insomnia, night terrors, endometriosis. - Past surgical history includes hysterectomy. - Social history includes denying ever using tobacco or alcohol products. Lives at home with . Principal Diagnosis chest pain Discharge Exam GENERAL: Awake, alert, well-appearing and speaking comfortably in full sentences, in no acute distress HENT: Normocephalic, atraumatic. Oropharynx unremarkable. EYES: Normal conjunctiva. Sclera non-icteric. NECK: Inspection normal. Non-tender. Supple and full ROM. No nuchal rigidity. CARDIAC: +S1S2 regular bradycardia, no murmurs. RESPIRATORY: Clear to auscultation. No wheezes or rales. Normal respiratory effort. GI: +BS, soft, non-distended. No tenderness to palpation. No rebound or guarding. EXTREMITIES: No pedal edema or calf tenderness. Moving all extremities naturally and easily. NEURO: No gross neuro deficits. Discharge Data Allergies Allergy/AdvReac Type Severity Reaction Status Date / Time codeine Allergy Intermediate RASH Verified 08/21/18 21:55 Penicillins Allergy Intermediate RASH Verified 08/21/18 21:55 Sulfa (Sulfonamide Allergy Intermediate RASH Verified 08/21/18 21:55 Antibiotics) [id number] Reductase AdvReac Muscle Pain Unverified 02/01/19 20:06 Inhibitor Consultations 02/01/19 19:17 ED Decision to Admit Stat 02/01/19 22:51 Consult Cardiology Routine Hospital Course (1) Atypical chest pain: Appreciate input from cardio. Patient will be discharged. The patient's description of chest discomfort does not represent coronary ischemia. Her symptoms resolved with physical activity. Her EKG is normal and her troponin I levels are undetectable. No need for further cardiac evaluation at this time. Stable for hospital discharge. (2) CAD (coronary artery disease): The patient suffered a non ST elevation MD back in August 2018. A drug- eluting stent placed in the mid LAD. Remains on aspirin and Brilinta. (3) Hypertension: Adequate control on current medical regimen. (4) Hypercholesterolemia: The patient is intolerant to statins. Total Time Total Time Spent Total Time Spent (In Minutes): 32 Total Time Includes: Examination of the Patient, Discharge Planning and Medication Reconciliation Discharge Plan Discharge Items Patient Disposition: Home - Self-Care Reason For Visit: CHEST PAIN Discharge Diagnosis: Chest pain Discharge Goals: Decrease discomfort Activity: Resume your previous activity Non-emergency contact: Primary Care Provider Call non-emergency contact if: you have any medication questions Follow-up/Referrals: Mk Marina MD [Primary Care Provider] - Diet: Heart Healthy Add Provider Instructions: You were seen for chest pain. Cardiolgy saw you and feel that you are a low risk patient based on your history. Recommend continue wit cardiac rehab and F/U with cardio in 1-2 weeks. Prescriptions: Continued Brilinta 90 mg tablet 90 mg PO BID Qty: 60 RF: 2 venlafaxine 75 mg capsule,extended release 24hr 75 mg PO DAILY Qty: 30 RF: 2 venlafaxine 37.5 mg capsule,extended release 24hr 37.5 mg PO DAILY 30 Days Qty: 30 RF: 2 pantoprazole 40 mg tablet,delayed release (DR/EC) 40 mg PO DAILY RF: 0 multivitamin Tablet 1 tab PO DAILY RF: 0 trazodone 50 mg Tablet 50 mg PO HS RF: 0 liothyronine [Cytomel] 5 mcg tablet 5 mcg PO DAILY RF: 0 methotrexate sodium 2.5 mg Tablet 8 tab PO WK RF: 0 levothyroxine 50 mcg tablet 50 mcg PO DAILY RF: 0 folic acid 1 mg Tablet 1 mg PO DAILY RF: 0 diclofenac sodium [Voltaren] 1 % Gel 2 g TOPICAL QID PRN (Reason: Pain) RF: 0 nitroglycerin 0.4 mg tablet, sublingual 0.4 mg Sublingual Q5M PRN (Reason: chest pain) Qty: 10 RF: 0 aspirin [Aspirin Low Dose] 81 mg tablet,delayed release (DR/EC) 81 mg PO DAILY Qty: 90 RF: 3 acetaminophen [Tylenol Arthritis Pain] 650 mg Tablet Extended Release 1,300 mg PO Q12H RF: 0 metoprolol succinate 25 mg tablet extended release 24 hr 12.5 mg PO DAILY RF: 0 ascorbic acid (vitamin C) 500 mg Tablet,Chewable 500 mg PO DAILY RF: 0 omega 0-yil-yfi-fish oil 28.5 mg(23.75- 4.75mg)-113.5mg Tablet,Chewable 2 tab PO DAILY RF: 0 Stand-Alone Forms: Call Back Authorization, [facility] Discharge Orders: Discharge Order (Routine); Ordered 02/02/19 Ordered By: Dann Olguin Admission Data Admit Date/Time: 02/01/19 20:09 Attending Provider: Dann Olguin Admit Provider: Rafal Borja Primary Care Provider: Mk Marina Other Providers: Mandy Duran Jason D Service: Telemetry Medical Other Interventions: Discharge Summary Assessment (RN) Last Done: 02/02/19 10:04 DC Date/Time DO NOT enter until pt leaves facility: 02/02/19 10:44
== END 2019-02-02 10:44 | disposition home or self-care (01) ==
LOC: ED 17:41 → 2N 17:41 → SUATTDRO 20:09 → 2N 21:33
DX: M06.9 Rheumatoid arthritis, unspecified; I25.2 Old myocardial infarction; E78.5 Hyperlipidemia, unspecified; M79.7 Fibromyalgia; Z88.6 Allergy status to analgesic agent; E55.9 Vitamin D deficiency, unspecified; I25.10 Atherosclerotic heart disease of native coronary artery without angina pectoris; Z79.899 Other long term (current) drug therapy; Z79.82 Long term (current) use of aspirin; F32.9 Major depressive disorder, single episode, unspecified; R07.89 Other chest pain; Z88.0 Allergy status to penicillin; Z88.2 Allergy status to sulfonamides; E78.00 Pure hypercholesterolemia, unspecified; E03.9 Hypothyroidism, unspecified; I10 Essential (primary) hypertension

== ENCOUNTER 2020-07-25 06:58 | Observation (INO) ==
[2020-07-25] MEDS ORDERED: niCARdipine HCL INJ 2.5 MG/ML 10 ML AMP ONE (07:41)
[2020-07-25] MEDS ORDERED: fentaNYL citrate 100 MCG/2 ML VIAL ONE ×2 (07:41→10:00)
[2020-07-25] MEDS ORDERED: HEPARIN (PORCINE) 1000 UNIT/ML 10 ML (CATH LAB USE ONLY) ONE (07:41)
[2020-07-25] MEDS ORDERED: NITROGLYCERIN/D5W 100MCG/ML 20ML SYR ONE (07:42)
[2020-07-25] MEDS ORDERED: MIDAZOLAM HCL 1 MG/ML 2ML VIAL ONE ×3 (07:42→09:41)
--- NOTE | 2020-07-25 08:11 | History & Physical Bridge Note ---
Date of Service July 25, 2020 History & Physical Bridge Note I have examined the patient, reviewed the History & Physical and in the interval since the performance of the History & Physical I have noted the following changes of clinical significance: no changes noted
--- NOTE | 2020-07-25 08:11 | Pre Anesthesia Assessment ---
Date of Service July 25, 2020 Pre Sedation Assessment Vital Signs Temp Pulse Pulse Resp BP Pulse Ox 07/26/20 07:52 37.4 C 67 18 117/67 95 07/26/20 05:05 37.0 C 59 L 16 120/64 94 07/25/20 23:26 36.8 C 63 16 113/57 L 93 07/25/20 23:00 58 L 07/25/20 19:40 37.3 C 77 19 135/77 97 07/25/20 15:53 50 L 122/54 L 07/25/20 14:53 36.6 C 46 L 14 125/58 L 99 07/25/20 13:42 36.3 C L 42 L 14 101/68 100 07/25/20 13:30 36.6 C 44 L 12 140/57 L 98 07/25/20 12:53 36.3 C L 41 L 14 137/52 L 97 07/25/20 12:20 36.4 C L 43 L 14 107/58 L 100 07/25/20 12:15 36.6 C 41 L 14 124/75 97 07/25/20 11:52 43 L 14 123/79 97 Cardiovascular RRR, no murmur, no edema Respiratory normal respiratory effort, lungs clear to auscultation Pre-Sedation Airway Assessment Smoking Status: Never smoker Hx Sleep Apnea: No Short, Thick Neck: No Thyromental Distance: > or= 3.5 Finger Breadths Oral Cavity: + WNL Mallampati Class: III ASA: ASA2 NPO Status Date of Last Intake of Fluids: 07/24/20 Time of Last Intake of Fluids: 21:00 Date of Last Intake of Solid Food: 07/24/20 Time of Last Intake of Solid Foods: 18:00 Procedure Planning Contraindications for Sedation: none Current Medications Reviewed: Yes Notes The planned sedation has been discussed with the patient. Informed Consent was obtained. I have identified the patient, determined the appropriateness of sedation and have assessed the patient immediately prior to the procedure. All medicine(s) and interventions are by my order.
--- NOTE | 2020-07-25 09:22 | Post Anesthesia Assessment ---
Date of Service July 25, 2020 Post Sedation Assessment Vital Signs Temp Pulse Pulse Resp BP Pulse Ox 07/26/20 07:52 37.4 C 67 18 117/67 95 07/26/20 05:05 37.0 C 59 L 16 120/64 94 07/25/20 23:26 36.8 C 63 16 113/57 L 93 07/25/20 23:00 58 L 07/25/20 19:40 37.3 C 77 19 135/77 97 07/25/20 15:53 50 L 122/54 L 07/25/20 14:53 36.6 C 46 L 14 125/58 L 99 07/25/20 13:42 36.3 C L 42 L 14 101/68 100 07/25/20 13:30 36.6 C 44 L 12 140/57 L 98 07/25/20 12:53 36.3 C L 41 L 14 137/52 L 97 07/25/20 12:20 36.4 C L 43 L 14 107/58 L 100 07/25/20 12:15 36.6 C 41 L 14 124/75 97 07/25/20 11:52 43 L 14 123/79 97 Recovery Score Activity: Moves 4 extremities Respiration: Deep Breath/Cough Circulation: +/-20% PreAnes Value Consciousness: Arouseable (by name) Oxygen Saturation: > 92% On Room Air Discharge Sedation Level of Care: Phase I Post Sedation Plan On clinical assessment, the patient appears to have tolerated the sedation without complications. Patient is recovering as anticipated. Patient will continue to be monitored by nursing and may be discharged when sedation discharge criteria are met per below protocol. Upon Completions of procedure up to 15 minutes continue every 5 minute vital signs and the P.A.R. score; then discharge to a Phase I or Fast Track to Phase II per the following guidelines: * Discharge Patient to appropriate Phase II area if PAR is 8 or greater or return to pre- procedure baseline. The post - procedure orders will be as directed. * If PAR score is less than 8 or not return to pre-procedure baseline then patient will follow Phase I monitoring till PAR is reached for Phase II. The Phase I may be done in procedure room or may call to secure a Phase I area. * If naloxone or flumazenil are used for reversal, hold in Phase I for continued monitoring from when last reversal dose was given for a minimum of 60 minutes or longer pending the nurse and/or physician discretion of patient condition before discharge to Phase II. Please call the Sedation Physician to re-evaluate and complete post-note for discharge to Phase II area. Do NOT discharge from procedure sedation or Phase 1 until post- sedation evaluation note is complete by procedure /sedation MD Sedation Discharge Instructions to be given to the patient at discharge to home.
--- NOTE | 2020-07-25 09:31 | Cardiac Catheterization ---
Cardiac Cath Procedure Full Procedure Date July 25, 2020 Pre-Procedure Diagnosis Pre-Procedure Diagnosis: Angina, Positive Stress Test, CAD and Arrhythmia (PVC's) AUC Score AUC Score: 7 Post-Procedure Diagnosis Post-Procedure Diagnosis: Severe CAD and Elevated Intracardiac Pressures Procedure(s) Performed Procedure(s) Performed: Coronary Angiography and Left Heart Cath Quality Assurance Advisor Macario Alexis DO Sat Math Tutor(s) Nj EMISSIONS REPAIR TECHNICIAN Estimated Blood Loss Estimated Blood Loss: 5cc Medication(s) Medication(s): Fentanyl, Heparin, Lidocaine 1%, Nicardipine, Nitroglycerin and Versed Summary of Findings Severe 80%, LAD instent restenosis involving proximal portion (extending proximally beyond stent) and distal segment of LAD stent. Hemodynamics Rest Ao:: Final Ao: 149/53/88 LV: 149/1/13 Recommendations Recommendations: PCI without planned CABG Radiation Exposure (mGy) 300 Contrast (mls) 20 Fluids (cc crystalloids) Fluids (cc crystalloids): 100 Nss Drains Drains: N/A Anesthesia Moderate sedation. Start 0841. End 0858. Sedation monitor: Lamonte QUINTANILLA Procedural Complication(s) None Disposition Patient remained in entry level lab technician for IVUS and PCI I attest to the content of the Intraoperative Record and any orders documented therein. Any exceptions are noted below. ACC Data: Stogy Roller Cardiac Status Clinical evaluation leading to the procedure CAD Presenation: Positive Stress Test and Unstable angina Anginal Classification: CCS II Heart Failure: No Stress Echocardiogram: Yes - Positive and Risk/Extent of Ischemia (Intermediate) Coronary Anatomy Dominant: Right Left Main (% Stenosis): Normal LAD (% Stenosis): Mid (80% instent restenosis involving the proximal and distal segments of LAD stent. The proximal stenosis extends beyond the stent to the bifurcation of large diagonal branch vessel.) and Distal (10%) D1 (% Stenosis): Mid (20%) Circumflex (% Stenosis): Normal RCA (% Stenosis): Proximal (30%), Mid (20%) and Distal (20%) R PDA (% Stenosis): Normal (Small posterior descending artery branch with several secondary posterior arteries.) R PL1 (% Stenosis): Normal R PL2 (% Stenosis): Normal Ramus (% Stenosis): Proximal (30% at bifurcation) Diagnostic Physicians Name: Macario Alexis DO Status: Elective Closure Device Percutaneous Entry Location: Radial Closure Device: Radial Band Recommendations: PCI without planned CABG Intraprocedure Events Significant Disection: No Perforation: No
--- NOTE | 2020-07-25 10:05 | Post Anesthesia Assessment ---
Date of Service July 25, 2020 Post Sedation Assessment Vital Signs Temp Pulse Resp BP Pulse Ox 07/25/20 07:26 98.4 F 51 L 16 144/55 H 96 Recovery Score Activity: Moves 4 extremities Respiration: Deep Breath/Cough Circulation: +/-20% PreAnes Value Consciousness: Arouseable (by name) Oxygen Saturation: > 92% On Room Air Discharge Sedation Level of Care: Fast Track Phase II Post Sedation Plan On clinical assessment, the patient appears to have tolerated the sedation without complications. Patient is recovering as anticipated. Patient will continue to be monitored by nursing and may be discharged when sedation discharge criteria are met per below protocol. Upon Completions of procedure up to 15 minutes continue every 5 minute vital signs and the P.A.R. score; then discharge to a Phase I or Fast Track to Phase II per the following guidelines: * Discharge Patient to appropriate Phase II area if PAR is 8 or greater or return to pre- procedure baseline. The post - procedure orders will be as directed. * If PAR score is less than 8 or not return to pre-procedure baseline then patient will follow Phase I monitoring till PAR is reached for Phase II. The Phase I may be done in procedure room or may call to secure a Phase I area. * If naloxone or flumazenil are used for reversal, hold in Phase I for continued monitoring from when last reversal dose was given for a minimum of 60 minutes or longer pending the nurse and/or physician discretion of patient condition before discharge to Phase II. Please call the Sedation Physician to re-evaluate and complete post-note for discharge to Phase II area. Do NOT discharge from procedure sedation or Phase 1 until post- sedation evaluation note is complete by procedure /sedation MD Sedation Discharge Instructions to be given to the patient at discharge to home.
[2020-07-25] MEDS ORDERED: NITROGLYCERIN SL 0.4 MG/TAB TAB SL PRN (10:08)
[2020-07-25] MEDS ORDERED: ONDANSETRON INJ 2 MG/ML 2 ML VIAL IV PRN (10:08)
[2020-07-25] MEDS ORDERED: CLOPIDOGREL BISULFATE 300 MG TAB ONE (10:08)
--- NOTE | 2020-07-25 10:08 | Post Operative Brief Note ---
Cardiology Brief Post Op Date of Surgery July 25, 2020 Pre & Post Diagnosis Operation Date: 07/25/20 08:00 <No data on this case meets the specified criteria> Procedure -- Manager Shift Deion Queen MD Database Marketing Specialist Nj Estimated Blood Loss 15 Findings See Below Severe proximal LAD disease with severe proximal to mid LAD in-stent restenosis Successful PCI of proximal to mid LAD with single drug-eluting stent (2.5 x 30 mm [place]; postdilated with 3.0 NC). Fluids 175 Specimens Specimen Description: -- Drains Other (none) Anesthesia Type RN Sedation Complications none Disposition Accompanied Patient To Recovery: No Disposition: PCU Overlapping Procedure I was present for: the critical portions of procedure. I was immediately available: during the entire case. Back up surgeon: was not required during procedure.
[2020-07-25] MEDS ORDERED: SODIUM CHLORIDE 0.9% 1000ML 1,000 ML IV SCH (10:15)
[2020-07-25] MEDS ORDERED: DICLOFENAC SOD 1% GEL 100 GM TUBE EXT PRN (11:30)
[2020-07-25] MEDS ORDERED: METOPROLOL SUCC 25MG EXT REL TAB PO SCH (11:30)
--- NOTE | 2020-07-25 11:43 | Cardiac Catheterization ---
[facility] Data: Montessori Toddler Teacher Cardiac Status Clinical evaluation leading to the procedure CAD Presenation: Positive Stress Test Anginal Classification: CCS III Heart Failure: No Cardiogenic Shock within 24 Hours: No Cardiac Arrest within 24 Hours: No Imaging Studies Past 6 Months: No Stress Studies Past 6 Months: No Stress Echocardiogram: Yes - Positive and Risk/Extent of Ischemia (Intermediate) Diagnostic Physicians Name: Deion Queen MD Status: Elective Closure Device Percutaneous Entry Location: Radial Closure Device: Radial Band Recommendations: PCI without planned CABG PCI Indication: + Stress Test Lesion Segment Name: Proximal to mid LAD Culprit Artery: Yes Stenosis Prior to Rx (%): 80 Chronic Total Occlusion: No IVUS: No FFR: No Pre-Procedure ROCHELLE Flow: 3 Previously Treated Lesion: Timeframe: 1-2 years Treated with Stent: Yes In-Stent Restenosis: Yes In-Stent Thrombosis: No Stent Type: MARTITA Yes Lesion Complexity: High/C Lesion Length (mm): 25 Thrombus Present: No Bifurcation Lesion: Yes Guidewire Across Lesion: Stenosis Post-Procedure (%): 0 Post-Procedure ROCHELLE Flow: 3 Devices(s) Deployed: Yes Yes Intraprocedure Events Significant Disection: No Perforation: No Cardiac Cath Procedure Full Procedure Date July 25, 2020 Pre-Procedure Diagnosis Pre-Procedure Diagnosis: Angina, Positive Stress Test and CAD AUC Score AUC Score: 8 Post-Procedure Diagnosis Post-Procedure Diagnosis: Severe CAD and Successful PCI Procedure(s) Performed Procedure(s) Performed: Coronary Angiography, Drug Eluting Stent and IVUS Rotor Assembler Deion Queen MD Legislators(s) Nj Estimated Blood Loss Estimated Blood Loss: 15 Medication(s) Medication(s): Clopidogrel, Fentanyl, Heparin, Nicardipine, Nitroglycerin and Versed Summary of Findings Indication: Accelerating angina, abnormal stress test Access: 6 Fr right radial artery Catheters: EBU 3.5 guide Findings: For full details of patient's coronary angiography please see cath report dictated by Dr. Alexis. Briefly, patient found to have severe single vessel disease with severe LAD disease involving the proximal segment and diffuse in-stent restenosis in prior proximal to mid LAD stent. Decision to proceed with PCI. -- PCI -- Antithrombotic therapy: Heparin, clopidogrel Procedure: Left main cannulated with EBU 3.5 guide BMW wire placed into first diagonal [place] wire passed across lesion into distal LAD [place] IVUS catheter placed into mid LAD. Pullback revealed underexpanded proximal to mid LAD stent with diffuse in-stent restenosis. Also found to have severe mildly calcified plaque extending back almost to LAD ostium. Left main without significant disease. Proximal to mid LAD lesion predilated with 2.5 compliant balloon New Trinity drug-eluting stent (2.5 x 30 mm) placed from just beyond LAD ostium extending almost completely across prior stent Stent post-dilated with 3.0 noncompliant balloon Repeat IVUS showed well-expanded, well apposed stent with no apparent edge complications IC vasodilators administered for spasm Post procedure ROCHELLE 3 flow, stent well expanded with minimal residual stenosis, minimal ostial stenosis of first diagonal and no other apparent cardiac complications. Arterial Closure: TR band Summary: 1. Successful PCI of proximal to mid LAD in-stent restenosis with new overlapping drug-eluting stent (2.5 x 30 mm Trinity; postdilated with 3.0 NC). Recommendations: To PCU for continued monitoring Reloaded with 300 mg at time of PCI Recommend DAPT with aspirin, clopidogrel for at least 1 year. Consider extended therapy in the setting of overlapping stents. Consult cardiac Rehab Hemodynamics Rest Ao:: 174/54/100 Final Ao: 150/54/90 LV: 149/13 Recommendations Recommendations: PCI without planned CABG Specimens Specimens: None Radiation Exposure (mGy) 1773 Contrast (mls) 90 Fluids (cc crystalloids) Fluids (cc crystalloids): 175 Drains Drains: none Anesthesia Moderate sedation Procedural Complication(s) None Disposition PCU I attest to the content of the Intraoperative Record and any orders documented therein. Any exceptions are noted below. [facility] Card Cath Procedure Codes Therapeutic Services & Ancillary Proc Procedure 1: Cardiovascular Tx and Anc Procedures: 01370 IV Ultrasound (Coronary or Graft) Moderate Sedation Procedure 1: Sedation/Anesthesia: 30782 Mod Sedation by the same physician; Ea [id number] Minutes Stenting Procedure 1: Cardiovascular Stent Procedures: 45462 Perc transcatheter placement of intracoronary stent(s), with ang PG Care Time/CCT Total # of Minutes Spent Total Time Spent with Patient: Total time spent is greater than 50% in coordination of care (as documented) at patient's floor/unit and/or counseling patient:
[2020-07-25] MEDS: ACETAMINOPHEN 325 MG TAB PO PRN ×2 (13:09→20:34)
--- NOTE | 2020-07-25 14:33 | Electrocardiogram Report ---
Test Reason : Blood Pressure : / mmHG Vent. Rate : 043 BPM Atrial Rate : 043 BPM P-R Int : 168 ms QRS Dur : 094 ms QT Int : 524 ms P-R-T Axes : 059 017 023 degrees QTc Int : 442 ms Marked sinus bradycardia Abnormal ECG When compared with ECG of 01-SEP-2019 16:20, Premature ventricular complexes are no longer Present Vent. rate has decreased BY 30 BPM Confirmed by Elías Mascorro ([id number]) on 07/25/2020 2:33:10 PM Referred By: Randall Reis Confirmed By:Elías Mascorro
[2020-07-25] MEDS ORDERED: traZODone HCL 100 MG TAB PO SCH (21:00)
[2020-07-25] MEDS ORDERED: FOLIC ACID 1 MG TAB PO SCH (21:00)
[2020-07-26 05:52] LABS: Basophils # (auto) 0.02 K/uL (0-0.2); Basophils % (auto) 0.3 %; Eosinophils # (auto) 0.08 K/uL (0-0.5); Eosinophils % (auto) 1.3 %; Hematocrit (blood only) 33.6 % (37-47); Hemoglobin 11.3 g/dL (12.0-16.0); Immature Granulocytes # (auto) 0.01 K/uL (0.00-0.02); Immature Granulocytes % (auto) 0.2 %; Lymphocytes # (auto) 1.92 K/uL (1.2-3.4); Lymphocytes % (auto) 31.1 %; Mean Corpuscular Hemoglobin 32.8 pg (25-34); Mean Corpuscular Hgb Conc 33.6 g/dL (32-36); Mean Corpuscular Volume 97.4 fL (80-100); Mean Platelet Volume 9.7 fL (7.4-10.4); Monocytes # (auto) 0.61 K/uL (0.11-0.59); Monocytes % (auto) 9.9 %; Neutrophils # (auto) 3.54 K/uL (1.4-6.5); Neutrophils % (auto) 57.2 %; Platelet Count 287 K/uL (130-400); RDW Coefficient of Variation 13.3 % (11.5-14.5); RDW Standard Deviation 46.4 fL (36.4-46.3); Red Blood Count 3.45 M/uL (4.2-5.4); White Blood Count 6.18 K/uL (4.8-10.8)
[2020-07-26 06:27] LABS: BUN Creatinine Ratio 20.4 (10-20); Calcium 8.8 mg/dl (8.5-10.1); Est GFR (African American) 85.9; Est GFR (Non-African American) 74.1; Potassium 4.2 mmol/L (3.5-5.1)
[2020-07-26] MEDS ORDERED: LEVOTHYROXINE SODIUM 50 MCG TABLET PO SCH (06:30)
[2020-07-26] MEDS ORDERED: CLOPIDOGREL BISULFATE 75 MG TAB PO SCH (09:00)
[2020-07-26] MEDS ORDERED: ESCITALOPRAM OXALATE 20 MG TAB PO SCH (09:00)
[2020-07-26] MEDS ORDERED: CYANOCOBALAMIN 500 MCG TABLET (VITAMIN B-12) PO SCH (09:00)
[2020-07-26] MEDS ORDERED: MULTIVITAMIN TAB PO SCH (09:00)
[2020-07-26] MEDS ORDERED: ASCORBIC ACID 500 MG TAB PO SCH (09:00)
[2020-07-26] MEDS ORDERED: ASPIRIN 81 MG ECTAB PO SCH (09:00)
[2020-07-26] MEDS ORDERED: CHOLECALCIFEROL 1,000 UNITS 25 MCG TAB PO SCH (09:00)
--- NOTE | 2020-07-26 10:53 | Cardiology Progress Note ---
Date of Service July 26, 2020 Assessment & Plan (1) Status post insertion of drug-eluting stent into left anterior descending (LAD) artery: (2) PVC (premature ventricular contraction): (3) Hypertension: (4) HLD (hyperlipidemia): (5) Statin intolerance: Discussed importance of continuing dual antiplatelet therapy for a minimum of 6 months post drug-eluting stent implantation. Patient voiced understanding. She will continue current treatment plan with ezetimibe, low-dose pravastatin, and initiation of PCSK9 inhibitor as per Dr. Viveros. Metoprolol discontinued due to marked resting bradycardia. Frequency of PVCs was low overnight. Continue to monitor off beta-susana in the outpatient setting. She will be discharged home today. Follow-up with Dr. Reis as scheduled. Admission and Anticipated Discharge Date Admission Date: July 25, 2020 Subjective Patient seen and examined at the bedside. Feeling well from a cardiovascular perspective. Telemetry reveals sinus rhythm and sinus bradycardia. Metoprolol placed on hold due to marked sinus bradycardia since admission. Rare PVCs noted overnight. Patient states she is feeling much better today no chest discomfort, heaviness, or palpitations. Anxious for discharge. Mild right anterior wrist soreness noted. Mild ecchymosis without hematoma. Review of Systems Review of Systems: All systems reviewed & are unremarkable except as noted in Subjective Physical Exam Constitutional: well developed and well nourished; no acute distress Eyes: PERRL, conjunctivae normal, anicteric sclerae Respiratory: normal respiratory effort, lungs clear to auscultation Auscultation: no crackles, no rales, no rhonchi and no wheezes Cardiovascular: Rate/Rhythm: regular rate and regular rhythm Heart Sounds: normal S1 and normal S2; no murmur Vessels: radial pulses present; no JVD Extremities: no edema Gastrointestinal (Abdomen): Inspection/Auscultation: normal bowel sounds; abdomen not distended Percussion/Palpation: abdomen soft; abdomen nontender, no guarding and abdomen not rigid Skin: no rashes, warm and dry Neurologic: CN's II-XI intact bilaterally and moves all extremities; no focal motor deficits Motor/Sensory: no tremor Results & Data ([facility]) Vital Signs (Past 12 Hours) Vital Signs Temp Pulse Pulse Resp BP Pulse Ox 07/26/20 07:52 37.4 C 67 18 117/67 95 07/26/20 05:05 37.0 C 59 L 16 120/64 94 07/25/20 23:26 36.8 C 63 16 113/57 L 93 07/25/20 23:00 58 L (1) Hypertension Hypertension type: essential hypertension Qualified Code(s): I10 - Essential (primary) hypertension
== END 2020-07-26 14:43 | disposition home or self-care (01) ==
LOC: 2S 06:58 → CC 06:58

== ENCOUNTER 2020-08-04 16:32 | Observation (INO) ==
[2020-08-04 17:09] LABS: Basophils # (auto) 0.02 K/uL (0-0.2); Basophils % (auto) 0.4 %; Eosinophils # (auto) 0.08 K/uL (0-0.5); Eosinophils % (auto) 1.4 %; Hematocrit (blood only) 34.4 % (37-47); Hemoglobin 11.5 g/dL (12.0-16.0); Immature Granulocytes # (auto) 0.01 K/uL (0.00-0.02); Immature Granulocytes % (auto) 0.2 %; Lymphocytes # (auto) 2.24 K/uL (1.2-3.4); Lymphocytes % (auto) 39.4 %; Mean Corpuscular Hemoglobin 32.5 pg (25-34); Mean Corpuscular Hgb Conc 33.4 g/dL (32-36); Mean Corpuscular Volume 97.2 fL (80-100); Mean Platelet Volume 9.5 fL (7.4-10.4); Monocytes # (auto) 0.62 K/uL (0.11-0.59); Monocytes % (auto) 10.9 %; Neutrophils # (auto) 2.72 K/uL (1.4-6.5); Neutrophils % (auto) 47.7 %; Platelet Count 340 K/uL (130-400); RDW Coefficient of Variation 13.3 % (11.5-14.5); RDW Standard Deviation 46.3 fL (36.4-46.3); Red Blood Count 3.54 M/uL (4.2-5.4); White Blood Count 5.69 K/uL (4.8-10.8)
[2020-08-04 17:23] LABS: Partial Thromboplastin Ratio 0.9; Prothrombin Time 9.7 Seconds (9.0-12.0)
[2020-08-04 17:37] LABS: Alanine Aminotransferase 22 U/L (12-78); Albumin Level 3.8 gm/dl (3.4-5.0); Aspartate Aminotransferase 14 U/L (15-37); BUN Creatinine Ratio 23.4 (10-20); Blood Urea Nitrogen 18 mg/dl (7-18); Calcium 8.7 mg/dl (8.5-10.1); Carbon Dioxide 29 mmol/L (21-32); Chloride 108 mmol/L (98-107); Creatinine Clr Calc Pharmacy 56.5 ml/min; Est GFR (African American) 88.5; Est GFR (Non-African American) 76.4; Glucose 111 mg/dl (70-99); Potassium 3.8 mmol/L (3.5-5.1); Sodium 141 mmol/L (136-145)
[2020-08-04 17:42] LABS: Albumin Globulin Ratio 1.1 (0.9-2); Alkaline Phosphatase 73 U/L (45-117); Bilirubin,Total 0.2 mg/dl (0.2-1); Globulin 3.5 gm/dl (2.5-4.0); Total Protein 7.3 gm/dl (6.4-8.2); Troponin I < 0.015 ng/ml (0-0.045)
--- NOTE | 2020-08-04 18:05 | Emergency Department Note ---
Impression & Plan Atypical chest pain ED Provider Note NAME: ESTHER GROSSMAN AGE: 69 SEX: F : 1950 ARRIVES VIA: Walk-In INFORMANT: Patient, ED PROVIDER(S): Cristian Balion MD Chief Complaint: Chest pain HPI: Patient does presents with chest pain. The patient apparently had a positive stress test prior and did have proximal to mid LAD lesion. Patient did have in-stent restenosis. A new drug-eluting stent was placed. Patient has been substernal and occasionally achy. Nonradiating. The patient denies any alleviating or exacerbating symptoms but sometimes does occur with exertion including going up or down stairs. The patient states this feels similar to when she required her most recent stent placed. The patient has been compliant with her medications. The patient has felt hot and cold flashes. The patient h as had a cough which she describes as her "heart cough." Patient denies any lower extremity swelling history DVT or PE. Patient did take her morning medications and is taking her aspirin and Plavix. The patient is followed with Dr. Dr. Reis and at his behest he referred her in for further evaluation and treatment ROS: See HPI for pertinent positives and negatives. A total of 10 systems were reviewed and otherwise negative. Past medical history: See below Surgical history: See below Social history: See below Physical Exam: GENERAL: Wearing a mask NAD, non-toxic. EYE EXAM: Normal conjunctiva. PERRL, no anisocoria and EOM's grossly intact w/o pain. NECK: Supple, no nuchal rigidity, no adenopathy, non-tender. No signs of meningismus. LUNGS: Clear to auscultation. Normal chest wall mechanics. HEART: NSR, no MRG. ABDOMEN: Abdomen soft, non-tender, normo-active bowel sounds, no masses, no rebound or guarding. BACK: No CVA TTP. SKIN: No rashes and no bruising. UPPER EXTREMITIES: Upper extremities are grossly normal. LOWER EXTREMITIES: Grossly normal, no edema. Negative Homans' sign bilaterally. NEURO EXAM: A&O x3, cranial nerves II-XII grossly intact, normal speech, moves all 4 extremities on command w/o issue. Differential diagnoses: Cardiac ischemia, aortic dissection, pulmonary embolism, pneumothorax, pneumonia, pericarditis, myocarditis, esophageal rupture, GERD, c holecystitis, pancreatitis, musculoskeletal, as well as other pathologies. Course: Patient was seen and evaluated the bedside. Full history physical exam was performed. EKG: Indication: Chest pain Normal sinus rhythm, rate of 60, normal intervals, normal axis, no ST changes or T WI. Imaging Studies: Radiology results as stated below per my review in the radiologist's interpretation: XR chest 1V portable CLINICAL HISTORY: Atypical chest pain COMPARISON STUDY: No previous studies for comparison. FINDINGS: The cardiac and mediastinal contours are normal. There is no evidence of focal pulmonary consolidation. There is no evidence of failure. No pleural effusions are visualized.[There is a probable coronary stent present. IMPRESSION: No active disease in the chest. ACT 112: Negative or not required by law. Electronically signed by: Benjamín Polk M.D. 08/04/2020 6:19 PM Dictated: 08/04/201817 Transcribed: 08/04/201817 Cardiac monitoring: An order was placed for continuous cardiac monitoring. The monitor shows a rate of 61 with sinus rhythm. MDM: Patient did present with concern for chest pain. Given the patient is high risk with recent stent placement atypical in nature no EKG changes but the patient is not having active chest pain. The patient has describes pain is similar to when she required most recent stent. Blood work is obtained which is unr emarkable. EKG nonischemic currently. Believe the patient would benefit from further evaluation and treatment. Covid test ordered negative. Chest x-ray is negative. I did speak with Dr. Gonzalez patient was admitted to the medicine service. Past Med/Surg History Medical History Anemia Aortic valve insufficiency CAD (coronary artery disease) Cardiac Cath with MARTITA placement to proximal to mid LAD 07/25/2020 Carotid artery stenosis Cerebral vascular disease Depression with anxiety Diverticulosis Essential tremor Fibromyalgia GERD (gastroesophageal reflux disease) Hearing deficit HLD (hyperlipidemia) Hypertension Hypothyroidism Insomnia MCI (mild cognitive impairment) with memory loss NSTEMI (non-ST elevated myocardial infarction) 08/2018--follows with Dr. Mascorro On anticoagulant therapy plavix daily d/t cardiac stent Peripheral neuropathy Pigmented skin lesion Postmenopausal atrophic vaginitis RA (rheumatoid arthritis) Tick bite Given Doxycycline 200mg PO x 1 dose (Lyme prophylaxis). [place]aremia hx of at age 22 Vitamin D deficiency Surgical History History of abdominal surgery adhesion removal-twice, d/t endometriosis History of anesthesia reaction slow to wake up during thumb sx 06/09/2019 at [facility] had a block placed and "hit a nerve" caused severe pain and is in physicial therapy History of cardiac cath 08/2018 x1 @ [facility] with 1 stent placed History of cataract surgery RT/LEFT History of section History of colonoscopy (09/13/13) Left sided diverticulosis. Internal hemorrhoids. No biopsies. F/U due 2023. History of coronary artery stent placement (~08/2018) 08/2018 History of esophagogastroduodenoscopy (EGD) (08/14/10) Diagnostic for epigastric pain w/u. Biopsies consistent with mild chronic gastritis. Negative H. pylori. No follow up recommended. History of right breast biopsy benign History of root canal procedure History of thumb surgery left thumb History of total hysterectomy with bilateral salpingo-oophorectomy (BSO) History of wisdom tooth extraction Status post excision of neuroma Status post right foot surgery "had to shave down bone on my foot" Family History Grandfather (Paternal) Acquired amyotrophic lateral sclerosis Sister CREST syndrome Father Pulmonary fibrosis Polyneuropathy Other No family history of adverse response to anesthesia Skin cancer Denies family history of Colon cancer Ovarian cancer Prostate cancer Myocardial infarction Breast cancer Social History Smoking Status: Never smoker Second Hand Exposure: No; Hx Alcohol Use: No Hx Substance Use: No Preferred Language: Gambian Communication Ability: Effective Visual Impairment: No Limitations Hearing Ability: Use of Hearing Aid Funeral Greeter Required: No Beliefs That Will Affect Care: None marital status: Current Living Situation: Spouse Current Living Situation Comment: two story home current occupational status: retired Feels Safe at Home: Yes Childhood Exposure to Second-Hand Smoke: Yes caffeine: Yes Dental Care, Regularly: Yes Physical Activity Frequency: Daily Seatbelt Use: always Sunscreen Use: Yes Assistive Devices: None Allergies Allergies Allergy/AdvReac Type Severity Reaction Status Date / Time codeine Allergy Intermediate RASH Verified 07/31/20 11:43 Penicillins Allergy Intermediate RASH Verified 07/31/20 11:43 Sulfa (Sulfonamide Allergy Intermediate RASH Verified 07/31/20 11:43 Antibiotics) ticagrelor [From Brilinta] AdvReac Intermediate Difficulty Verified 07/31/20 11:43 Breathing Dwziqbl-Cka-Fgv Reductase AdvReac Mild Muscle Pain Verified 07/31/20 11:43 Inhibitor Home Meds Home Medications Medication Instructions Recorded Confirmed diclofenac sodium [Voltaren] 2 g TOPICAL QID PRN 08/21/18 07/31/20 folic acid 1 mg PO HS 08/21/18 07/31/20 methotrexate sodium 10 mg PO .WK/UD 08/21/18 07/31/20 multivitamin 1 tab PO DAILY 08/21/18 07/31/20 ascorbic acid (vitamin C) 500 mg PO DAILY 02/01/19 07/31/20 cholecalciferol (vitamin D3) 2,000 unit PO DAILY 06/14/19 07/31/20 [Vitamin D3] cyanocobalamin (vitamin B-12) 2,000 mcg PO DAILY 06/14/19 07/31/20 [Vitamin B-12] acetaminophen [Tylenol Arthritis 1,300 mg PO Q12H 12/27/19 07/31/20 Pain] escitalopram oxalate [Lexapro] 20 mg PO QAM 07/25/20 07/31/20 ezetimibe 10 mg tablet 10 mg PO DAILY 07/31/20 07/31/20 Previous Rx's Medication Instructions Recorded aspirin [Aspirin Low Dose] 81 mg PO DAILY #90 tab 08/25/18 nitroglycerin 0.4 mg sublingual 0.4 mg SUBLINGUAL DIRECTED PRN 09/27/19 tablet #25 tab levothyroxine 50 mcg tablet 50 mcg PO DAILY #90 tab 01/21/20 trazodone 50 mg tablet 100 mg PO HS #1 tab 03/20/20 clopidogrel 75 mg tablet 75 mg PO QAM #90 tab 03/27/20 Results & Data (ED) Vital Signs Vital Signs - 24 hr 08/04/20 16:38 08/04/20 18:29 08/04/20 18:30 Temperature 36.2 C L Temperature Source Temporal Artery Scan Pulse Rate 86 61 61 Pulse Rate from SpO2 Sensor 59 L 66 Respiratory Rate 18 17 15 Respiratory Effort / Characteristics Non-Labored Spontaneous Respiratory Depth Normal Blood Pressure 135/83 152/81 H 155/72 H Blood Pressure Mean 100 104 99 Blood Pressure Position Sitting Pulse Oximetry 100 100 98 Oxygen Delivery Method Room Air Sepsis Recent Fever Within 48 Hours No Sepsis New/Unexplained Change in Mental Status N/A Sepsis Action Taken by Nursing No Action Required 08/04/20 18:32 Temperature Temperature Source Pulse Rate 61 Pulse Rate from SpO2 Sensor 66 Respiratory Rate 14 Respiratory Effort / Characteristics Respiratory Depth Blood Pressure Blood Pressure Mean Blood Pressure Position Pulse Oximetry 97 Oxygen Delivery Method Sepsis Recent Fever Within 48 Hours Sepsis New/Unexplained Change in Mental Status Sepsis Action Taken by Residential Medications Current Medication List: was personally reviewed by me Laboratory Data Attestation: I reviewed the patient's lab results. Result diagrams: 08/04/20 16:54 08/04/20 16:54 Lab Results 08/04/20 08/04/20 08/04/20 Range/Units 16:54 16:54 16:54 WBC 5.69 (4.8-10.8) K/uL RBC 3.54 L (4.2-5.4) M/uL Hgb 11.5 L (12.0-16.0) g/dL Hct 34.4 L (37-47) % MCV 97.2 (80-100) fL MCH 32.5 (25-34) pg MCHC 33.4 (32-36) g/dL RDW Std Deviation 46.3 (36.4-46.3) fL RDW Coeff of Rashard 13.3 (11.5-14.5) % Plt Count 340 (130-400) K/uL MPV 9.5 (7.4-10.4) fL Immature Gran % (Auto) 0.2 % Neut % (Auto) 47.7 % Lymph % (Auto) 39.4 % [place] % (Auto) 10.9 % Eos % (Auto) 1.4 % Baso % (Auto) 0.4 % Neut # (Auto) 2.72 (1.4-6.5) K/uL Lymph # (Auto) 2.24 (1.2-3.4) K/uL [place] # (Auto) 0.62 H (0.11-0.59) K/uL Eos # (Auto) 0.08 (0-0.5) K/uL Baso # (Auto) 0.02 (0-0.2) K/uL Immature Gran # (Auto) 0.01 (0.00-0.02) K/uL PT 9.7 (9.0-12.0) Seconds INR 1.0 (0.9-1.1) APTT 24.0 (21.0-31.0) Seconds PTT Ratio 0.9 Sodium 141 (136-145) mmol/L Potassium 3.8 (3.5-5.1) mmol/L Chloride 108 H (98-107) mmol/L Carbon Dioxide 29 (21-32) mmol/L Anion Gap 4.0 (3-11) BUN 18 (7-18) mg/dl Creatinine 0.79 (0.6-1.2) mg/dl Est Cr Clr Drug Dosing 56.5 ml/min Est GFR ( Amer) 88.5 Est GFR (Non-Af Amer) 76.4 BUN/Creatinine Ratio 23.4 H (10-20) Glucose 111 H (70-99) mg/dl Calcium 8.7 (8.5-10.1) mg/dl Total Bilirubin 0.2 (0.2-1) mg/dl AST 14 L (15-37) U/L ALT 22 (12-78) U/L Alkaline Phosphatase 73 (45-117) U/L Troponin I < 0.015 (0-0.045) ng/ml Total Protein 7.3 (6.4-8.2) gm/dl Albumin 3.8 (3.4-5.0) gm/dl Globulin 3.5 (2.5-4.0) gm/dl Albumin/Globulin Ratio 1.1 (0.9-2) COVID-19 Eval Order 08/04/20 Range/Units Unknown WBC (4.8-10.8) K/uL RBC (4.2-5.4) M/uL Hgb (12.0-16.0) g/dL Hct (37-47) % MCV (80-100) fL MCH (25-34) pg MCHC (32-36) g/dL RDW Std Deviation (36.4-46.3) fL RDW Coeff of Rashard (11.5-14.5) % Plt Count (130-400) K/uL MPV (7.4-10.4) fL Immature Gran % (Auto) % Neut % (Auto) % Lymph % (Auto) % [place] % (Auto) % Eos % (Auto) % Baso % (Auto) % Neut # (Auto) (1.4-6.5) K/uL Lymph # (Auto) (1.2-3.4) K/uL [place] # (Auto) (0.11-0.59) K/uL Eos # (Auto) (0-0.5) K/uL Baso # (Auto) (0-0.2) K/uL Immature Gran # (Auto) (0.00-0.02) K/uL PT (9.0-12.0) Seconds INR (0.9-1.1) APTT (21.0-31.0) Seconds PTT Ratio Sodium (136-145) mmol/L Potassium (3.5-5.1) mmol/L Chloride (98-107) mmol/L Carbon Dioxide (21-32) mmol/L Anion Gap (3-11) BUN (7-18) mg/dl Creatinine (0.6-1.2) mg/dl Est Cr Clr Drug Dosing ml/min Est GFR ( Amer) Est GFR (Non-Af Amer) BUN/Creatinine Ratio (10-20) Glucose (70-99) mg/dl Calcium (8.5-10.1) mg/dl Total Bilirubin (0.2-1) mg/dl AST (15-37) U/L ALT (12-78) U/L Alkaline Phosphatase (45-117) U/L Troponin I (0-0.045) ng/ml Total Protein (6.4-8.2) gm/dl Albumin (3.4-5.0) gm/dl Globulin (2.5-4.0) gm/dl Albumin/Globulin Ratio (0.9-2) COVID-19 Eval Order Covid19 IDNow [facility] Administered Medications Discontinued Medications Aspirin (Aspirin Chew 324 Mg) 243 mg PO NOW STA Stop: 08/04/20 18:13 Last Admin: 08/04/20 18:27 Dose: 243 mg Documented by: [id number] Discharge Plan Visit Data Chief Complaint: Chest Pain Stated Complaint: CHEST PAIN ED Provider: Cristian Bailon Discharge Problem: Atypical chest pain Discharge Instructions Krames/Other Patient Handouts: 2019-nCoV Forms Stand Alone Forms: My [facility] Prescriptions Prescriptions: No Action levothyroxine 50 mcg tablet 50 mcg PO DAILY Qty: 90 RF: 3 clopidogrel 75 mg tablet 75 mg PO QAM Qty: 90 RF: 3 ezetimibe [Zetia] 10 mg tablet 10 mg PO DAILY RF: 0 nitroglycerin 0.4 mg tablet, sublingual 0.4 mg Sublingual DIRECTED PRN (Reason: chest pain) Qty: 25 RF: 1 trazodone 50 mg tablet 100 mg PO HS Qty: 1 RF: 0 cyanocobalamin (vitamin B-12) [Vitamin B-12] 1,000 mcg Tablet 2,000 mcg PO DAILY RF: 0 cholecalciferol (vitamin D3) [Vitamin D3] 1,000 unit Tablet,Chewable 2,000 unit PO DAILY RF: 0 multivitamin Tablet 1 tab PO DAILY RF: 0 methotrexate sodium 2.5 mg Tablet 10 mg PO .WK/UD RF: 0 folic acid 1 mg Tablet 1 mg PO HS RF: 0 diclofenac sodium [Voltaren] 1 % Gel 2 g TOPICAL QID PRN (Reason: Pain) RF: 0 aspirin [Aspirin Low Dose] 81 mg tablet,delayed release (DR/EC) 81 mg PO DAILY Qty: 90 RF: 3 ascorbic acid (vitamin C) 500 mg Tablet,Chewable 500 mg PO DAILY RF: 0 acetaminophen [Tylenol Arthritis Pain] 650 mg Tablet Extended Release 1,300 mg PO Q12H RF: 0 escitalopram oxalate [Lexapro] 10 mg tablet 20 mg PO QAM RF: 0 Referrals Referrals: Shaun Sarabia DO [Primary Care Provider] -
[2020-08-04] MEDS ORDERED: ASPIRIN CHEW 324 MG PO STA (18:12)
--- NOTE | 2020-08-04 18:21 | XRay Report ---
XR chest 1V portable CLINICAL HISTORY: Atypical chest pain COMPARISON STUDY: No previous studies for comparison. FINDINGS: The cardiac and mediastinal contours are normal. There is no evidence of focal pulmonary co nsolidation. There is no evidence of failure. No pleural effusions are visualized.[There is a probabl e coronary stent present. IMPRESSION: No active disease in the chest. ACT 112: Negative or not required by law. Electronically signed by: Benjamín Polk M.D. 08/04/2020 6:19 PM
--- NOTE | 2020-08-04 18:50 | History & Physical Report ---
Date of Service August 04, 2020 Assessment & Plan (1) CAD (coronary artery disease): pt represents with her typical anginal equivalent. pt did have b jennifer stopped during her last stay due to bradycardia, may cosider adding monik mariscal , will consult cardiology she typically sees Dr Reis (2) Status post insertion of drug-eluting stent into left anterior descending (LAD) artery: 07/25/20, patient found to have severe single vessel disease with severe LAD disease involving the proximal segment and diffuse in-stent restenosis in prior proximal to mid LAD stent. Decision to proceed with PCI.. Successful PCI of proximal to mid LAD in-stent restenosis with new overlapping drug-eluting stent (2.5 x 30 mm [place]; postdilated with 3.0 NC). Recommend DAPT with aspirin, clopidogrel for at least 1 year. Consider extended therapy in the setting of overlapping stents. will have serial troponin, telemetry, and ecg in am, will have [facility] cardiology consult to help determine if further risk stratification is required with perhaps perfusion study or medical management with manipulation of B Jennifer or consider starting nitrate (3) Hypothyroidism: remains on Synthroid 50 mcg (4) RA (rheumatoid arthritis): Patient is on methotrexate 10 mg a week with folic acid,. typically takes on friday is on hold (5) Depression with anxiety: Shadia on Lexapro 20, trazodone for sleep 100 mg at bedtime (6) DVT prophylaxis: heparin sc History of Present Illness Primary Care Provider: Shaun Sarabia, DO Pt did have cardiac intervention for in stent stenosis with intervention of the LAD stent, she was discharged on DAPT, she typically is not on a b Jennifer or nitrate, she is statin intolerant and was started on exetimibe . she stated she felt well for a few days but for the last 3 days was fatigued and for the last 24 hours was having atypical chest pain that was similar to her previous angina. It is sharp and prechordal dose not radiate and is not reproducible. She is concerned that her CAD is worsened again Allergies Allergy/AdvReac Type Severity Reaction Status Date / Time codeine Allergy Intermediate RASH Verified 08/04/20 18:39 Penicillins Allergy Intermediate RASH Verified 08/04/20 18:39 Sulfa (Sulfonamide Allergy Intermediate RASH Verified 08/04/20 18:39 Antibiotics) ticagrelor [From Brilinta] AdvReac Intermediate Difficulty Verified 08/04/20 18:39 Breathing Dbuqrjl-Cey-Ewv Reductase AdvReac Mild Muscle Pain Verified 08/04/20 18:39 Inhibitor Home Medications Medication Instructions Recorded Confirmed Type diclofenac sodium [Voltaren] 2 g TOPICAL QID PRN 08/21/18 08/04/20 History folic acid 1 mg PO HS 08/21/18 08/04/20 History methotrexate sodium 10 mg PO .WK/UD 08/21/18 08/04/20 History multivitamin 1 tab PO DAILY 08/21/18 08/04/20 History aspirin [Aspirin Low Dose] 81 mg PO DAILY #90 tab 08/25/18 08/04/20 Rx ascorbic acid (vitamin C) 500 mg PO DAILY 02/01/19 08/04/20 History cholecalciferol (vitamin D3) 2,000 unit PO DAILY 06/14/19 08/04/20 History [Vitamin D3] cyanocobalamin (vitamin B-12) 2,000 mcg PO DAILY 06/14/19 08/04/20 History [Vitamin B-12] nitroglycerin 0.4 mg sublingual 0.4 mg SUBLINGUAL DIRECTED PRN 09/27/19 08/04/20 Rx tablet #25 tab acetaminophen [Tylenol Arthritis 1,300 mg PO Q12H 12/27/19 08/04/20 History Pain] levothyroxine 50 mcg tablet 50 mcg PO DAILY #90 tab 01/21/20 08/04/20 Rx trazodone 50 mg tablet 100 mg PO HS #1 tab 03/20/20 08/04/20 Rx clopidogrel 75 mg tablet 75 mg PO QAM #90 tab 03/27/20 08/04/20 Rx escitalopram oxalate [Lexapro] 20 mg PO QAM 07/25/20 08/04/20 History ezetimibe 10 mg tablet 10 mg PO DAILY 07/31/20 08/04/20 History Past Med/Surg History Medical History Anemia Aortic valve insufficiency CAD (coronary artery disease) Cardiac Cath with MARTITA placement to proximal to mid LAD 07/25/2020 Carotid artery stenosis Cerebral vascular disease Depression with anxiety Diverticulosis Essential tremor Fibromyalgia GERD (gastroesophageal reflux disease) Hearing deficit HLD (hyperlipidemia) Hypertension Hypothyroidism Insomnia MCI (mild cognitive impairment) with memory loss NSTEMI (non-ST elevated myocardial infarction) 08/2018--follows with Dr. Mascorro On anticoagulant therapy plavix daily d/t cardiac stent Peripheral neuropathy Pigmented skin lesion Postmenopausal atrophic vaginitis RA (rheumatoid arthritis) Tick bite Given Doxycycline 200mg PO x 1 dose (Lyme prophylaxis). [place]aremia hx of at age 22 Vitamin D deficiency Surgical History History of abdominal surgery adhesion removal-twice, d/t endometriosis History of anesthesia reaction slow to wake up during thumb sx 06/09/2019 at [facility] had a block placed and "hit a nerve" caused severe pain and is in physicial therapy History of cardiac cath 08/2018 x1 @ [facility] with 1 stent placed History of cataract surgery RT/LEFT History of section History of colonoscopy (09/13/13) Left sided diverticulosis. Internal hemorrhoids. No biopsies. F/U due 2023. History of coronary artery stent placement (~08/2018) 08/2018 History of esophagogastroduodenoscopy (EGD) (08/14/10) Diagnostic for epigastric pain w/u. Biopsies consistent with mild chronic gastritis. Negative H. pylori. No follow up recommended. History of right breast biopsy benign History of root canal procedure History of thumb surgery left thumb History of total hysterectomy with bilateral salpingo-oophorectomy (BSO) History of wisdom tooth extraction Status post excision of neuroma Status post right foot surgery "had to shave down bone on my foot" Family History Grandfather (Paternal) Acquired amyotrophic lateral sclerosis Sister CREST syndrome Father Pulmonary fibrosis Polyneuropathy Other No family history of adverse response to anesthesia Skin cancer Denies family history of Colon cancer Ovarian cancer Prostate cancer Myocardial infarction Breast cancer Social History Smoking Status: Never smoker Second Hand Exposure: No; Hx Alcohol Use: No Hx Substance Use: No Preferred Language: Lithuanian Communication Ability: Effective Visual Impairment: No Limitations Hearing Ability: Use of Hearing Aid Plug Sorter Required: No Beliefs That Will Affect Care: None marital status: Current Living Situation: Spouse Current Living Situation Comment: two story home current occupational status: retired Feels Safe at Home: Yes Childhood Exposure to Second-Hand Smoke: Yes caffeine: Yes Dental Care, Regularly: Yes Physical Activity Frequency: Daily Seatbelt Use: always Sunscreen Use: Yes Assistive Devices: None Review of Systems Review of Systems: Mild distress and fatigue no headache, blurry or double vision no speech or swallowing issues sharp substernal chest pain, not described as pressure or palpitations no shortness of breath, cough or wheezes no abdominal pain, nausea or vomiting, diarrhea or constipation no dysuria, hematuria or frequency no focal joint pain or swelling no back pain, CVA tenderness or radicular pain no bruising, bleeding or rashes no focal signs of weakness or numbness or altered sensation no complaints of anxiety or depression.. Physical Exam Physical Exam: The patient appeared well nourished and normally developed. slighlty anxious Vital signs as documented. Head exam is normocephalic atraumatic no scleral icterus Neck is without JVD, thyromegaly, or carotid bruits. Lungs are clear to auscultation, no focal loss of breath sounds Cardiac exam, Rhythm is regular.. No murmurs, rubs or gallops. Abdominal exam reveals normal bowel sounds, soft non tender, no masses Extremities are nonedematous and both pedal pulses are present Neurologic exam is alert and oriented, no focal loss of strength or sensation Skin is without bruises or rashes Psychologically is without concerns for anxiety or depression Results & Data Results & Data ([facility]) Vital Signs (Past 12 Hours) Vital Signs Temp Pulse Resp BP Pulse Ox 08/04/20 18:32 61 14 97 08/04/20 18:30 61 15 155/72 H 98 08/04/20 18:29 61 17 152/81 H 100 08/04/20 16:38 97.2 F L 86 18 135/83 100 chest x-ray is unremarkable ecg shows nsr with no acute changes PG Care Time/CCT Total # of Minutes Spent Total Time Spent with Patient: Total time spent is greater than 50% in coordination of care (as documented) at patient's floor/unit and/or counseling patient: Coding Level of Care Code 78113 OBS Care - Level 3 Diagnoses CAD (coronary artery disease) I25.10 Status post insertion of drug-eluting stent into left anterior descending (LAD) artery Z95.5 Hypothyroidism E03.9 RA (rheumatoid arthritis) M06.9 Depression with anxiety F41.8 DVT prophylaxis Z29.9
[2020-08-04] MEDS ORDERED: ALUMINUM/MAGNESIUM SUSP 30 ML UDC PO PRN (21:19)
[2020-08-04] MEDS ORDERED: DICLOFENAC SOD 1% GEL 100 GM TUBE EXT PRN (21:19)
[2020-08-04] MEDS ORDERED: MoRPHine SULFATE 2 MG/ML CARP IV PRN (21:19)
[2020-08-04] MEDS ORDERED: NITROGLYCERIN SL 0.4 MG/TAB TAB SL PRN (21:19)
[2020-08-04] MEDS ORDERED: ONDANSETRON INJ 2 MG/ML 2 ML VIAL IV PRN (21:19)
[2020-08-04] MEDS ORDERED: LORazepam 0.5 MG TAB PO PRN (21:19)
[2020-08-04] MEDS ORDERED: traZODone HCL 100 MG TAB PO SCH (21:19)
[2020-08-04] MEDS ORDERED: METOPROLOL TARTRATE 1 MG/ML VIAL IV PRN (21:19)
[2020-08-04] MEDS: HEPARIN SOD 5,000 UNIT/0.5 ML VIAL SQ SCH (21:54)
[2020-08-04] MEDS: carvediloL 3.125 MG TAB PO SCH (21:55)
[2020-08-04] MEDS: ACETAMINOPHEN 325 MG TAB PO SCH (21:57)
[2020-08-05] MEDS ORDERED: LEVOTHYROXINE SODIUM 50 MCG TABLET PO SCH (06:30)
[2020-08-05 07:33] LABS: BUN Creatinine Ratio 22.5 (10-20); Calcium 9.1 mg/dl (8.5-10.1); Creatinine Clr Calc Pharmacy 61.6 ml/min; Est GFR (Non-African American) 85.4; Potassium 4.1 mmol/L (3.5-5.1)
[2020-08-05] MEDS: ACETAMINOPHEN 325 MG TAB PO SCH (08:30)
[2020-08-05] MEDS: carvediloL 3.125 MG TAB PO SCH (08:30)
[2020-08-05] MEDS: HEPARIN SOD 5,000 UNIT/0.5 ML VIAL SQ SCH (08:31)
[2020-08-05] MEDS ORDERED: ESCITALOPRAM OXALATE 20 MG TAB PO SCH (09:00)
[2020-08-05] MEDS ORDERED: MULTIVITAMIN TAB PO SCH (09:00)
[2020-08-05] MEDS ORDERED: ASPIRIN 81 MG ECTAB PO SCH (09:00)
[2020-08-05] MEDS ORDERED: EZETIMIBE 10 MG TABLET PO SCH (09:00)
[2020-08-05] MEDS ORDERED: CLOPIDOGREL BISULFATE 75 MG TAB PO SCH (09:00)
[2020-08-05] MEDS ORDERED: ISOSORBIDE MONO EXTENDED REL 30 MG TABCR PO SCH (11:30)
--- NOTE | 2020-08-05 12:52 | Cardiology Consultation ---
Date of Consultation August 05, 2020 Assessment & Plan (1) Atypical chest pain: (2) PVC (premature ventricular contraction): (3) Statin intolerance: (4) Status post insertion of drug-eluting stent into left anterior descending (LAD) artery: (5) Cervical radiculopathy: I do believe that the patient was suffering from microvascular dysfunction. Agree with addition of beta-blockade and will also add long-acting nitrates. The pathophysiology and treatment options for microvascular dysfunction were discussed with her at great lengths and she states she understands. Given that her serial troponins are negative and EKG is unremarkable no further testing is necessary at this time. Okay to DC to home. Follow-up as an outpatient as scheduled. Continue dual antiplatelet therapy uninterrupted. History of Present Illness Reason for Consultation: chest pain Requesting Physician: Dr. Gonzalez Attending Physician: Reji Hawk MD History of Present Illness Mrs. Card is a very pleasant 69-year-old woman who just recently underwent PCI of her LAD for in-stent restenosis. She presented to [facility] on 08/04/2020 with complaints of chest discomfort. She states it was similar to her anginal equivalent of chest discomfort at rest with radiation to her left arm. She denied any associated shortness of breath, diaphoresis or nausea. Denies any aggravating or alleviating factors. Did not attempt to take sublingual nitroglycerin. States has been compliant with dual antiplatelet therapy. Allergies Allergy/AdvReac Type Severity Reaction Status Date / Time codeine Allergy Intermediate RASH Verified 08/04/20 18:39 Penicillins Allergy Intermediate RASH Verified 08/04/20 18:39 Sulfa (Sulfonamide Allergy Intermediate RASH Verified 08/04/20 18:39 Antibiotics) ticagrelor [From Brilinta] AdvReac Intermediate Difficulty Verified 08/04/20 18:39 Breathing Fcqvqxy-Ypn-Ste Reductase AdvReac Mild Muscle Pain Verified 08/04/20 18:39 Inhibitor Home Medications Medication Instructions Recorded Confirmed Type diclofenac sodium [Voltaren] 2 g TOPICAL QID PRN 08/21/18 08/04/20 History folic acid 1 mg PO HS 08/21/18 08/04/20 History methotrexate sodium 10 mg PO .WK/UD 08/21/18 08/04/20 History multivitamin 1 tab PO DAILY 08/21/18 08/04/20 History aspirin [Aspirin Low Dose] 81 mg PO DAILY #90 tab 08/25/18 08/04/20 Rx ascorbic acid (vitamin C) 500 mg PO DAILY 02/01/19 08/04/20 History cholecalciferol (vitamin D3) 2,000 unit PO DAILY 06/14/19 08/04/20 History [Vitamin D3] cyanocobalamin (vitamin B-12) 2,000 mcg PO DAILY 06/14/19 08/04/20 History [Vitamin B-12] nitroglycerin 0.4 mg sublingual 0.4 mg SUBLINGUAL DIRECTED PRN 09/27/19 08/04/20 Rx tablet #25 tab acetaminophen [Tylenol Arthritis 1,300 mg PO Q12H 12/27/19 08/04/20 History Pain] levothyroxine 50 mcg tablet 50 mcg PO DAILY #90 tab 01/21/20 08/04/20 Rx trazodone 50 mg tablet 100 mg PO HS #1 tab 03/20/20 08/04/20 Rx clopidogrel 75 mg tablet 75 mg PO QAM #90 tab 03/27/20 08/04/20 Rx escitalopram oxalate [Lexapro] 20 mg PO QAM 07/25/20 08/04/20 History ezetimibe 10 mg tablet 10 mg PO DAILY 07/31/20 08/04/20 History carvedilol 3.125 mg PO BID #60 tab 08/05/20 Rx isosorbide mononitrate 30 mg PO QAM #30 tab 08/05/20 Rx Patient History Medical History Anemia Aortic valve insufficiency CAD (coronary artery disease) Cardiac Cath with MARTITA placement to proximal to mid LAD 07/25/2020 Carotid artery stenosis Cerebral vascular disease Depression with anxiety Diverticulosis Essential tremor Fibromyalgia GERD (gastroesophageal reflux disease) Hearing deficit HLD (hyperlipidemia) Hypothyroidism Insomnia MCI (mild cognitive impairment) with memory loss NSTEMI (non-ST elevated myocardial infarction) 08/2018--follows with Dr. Mascorro On anticoagulant therapy plavix daily d/t cardiac stent Pigmented skin lesion Postmenopausal atrophic vaginitis RA (rheumatoid arthritis) Tick bite Given Doxycycline 200mg PO x 1 dose (Lyme prophylaxis). [place] hx of at age 22 Vitamin D deficiency Surgical History History of abdominal surgery adhesion removal-twice, d/t endometriosis History of anesthesia reaction slow to wake up during thumb sx 06/09/2019 at [facility] had a block placed and "hit a nerve" caused severe pain and is in physicial therapy History of cardiac cath 08/2018 x1 @ [facility] with 1 stent placed History of cataract surgery RT/LEFT History of section History of colonoscopy (09/13/13) Left sided diverticulosis. Internal hemorrhoids. No biopsies. F/U due 2023. History of coronary artery stent placement (~08/2018) 08/2018 History of esophagogastroduodenoscopy (EGD) (08/14/10) Diagnostic for epigastric pain w/u. Biopsies consistent with mild chronic gastritis. Negative H. pylori. No follow up recommended. History of right breast biopsy benign History of root canal procedure History of thumb surgery left thumb History of total hysterectomy with bilateral salpingo-oophorectomy (BSO) History of wisdom tooth extraction Status post excision of neuroma Status post right foot surgery "had to shave down bone on my foot" Family History Grandfather (Paternal) Acquired amyotrophic lateral sclerosis Sister CREST syndrome Father Pulmonary fibrosis Polyneuropathy Other No family history of adverse response to anesthesia Skin cancer Denies family history of Colon cancer Ovarian cancer Prostate cancer Myocardial infarction Breast cancer Social History Smoking Status: Never smoker Second Hand Exposure: No; Hx Alcohol Use: No Hx Substance Use: No Preferred Language: Ukrainian Communication Ability: Effective Visual Impairment: No Limitations Hearing Ability: Use of Hearing Aid Health Safety And Environment Manager Required: No Beliefs That Will Affect Care: None marital status: Current Living Situation: Spouse Current Living Situation Comment: two story home current occupational status: retired Feels Safe at Home: Yes Safety Concerns: Feels Safe At This Time Childhood Exposure to Second-Hand Smoke: Yes caffeine: Yes Dental Care, Regularly: Yes Physical Activity Frequency: Daily Seatbelt Use: always Sunscreen Use: Yes Assistive Devices: Glasses and Hearing Aid - Bilateral Review of Systems Review of Systems: All systems reviewed & are unremarkable except as noted in HPI & below Physical Exam Physical Exam: General: Awake, alert and oriented x 3. No acute distress. HEENT: Normocephalic, atraumatic. Pupils equal, round and reactive to light and accommodation. Extraocular muscles are intact. Anicteric sclera. Moist mucous membranes. Neck: No JVD. No bruit. Cardiovascular: Regular. Positive S-4. Normal S-1 and S-2. No S-3. No murmurs or rubs. Pulmonary: Clear to auscultation B/L. No rales, rhonchi or wheezing Abdomen: Bowel sounds x 4, soft. No rebound, guarding or tenderness. No organomegaly. Extremities: No clubbing, cyanosis or edema. +2 pedal pulses bilaterally. Skin: Warm and dry. Results & Data ([facility]) Vital Signs (Past 12 Hours) Vital Signs Temp Pulse Pulse Resp BP BP BP 08/05/20 11:32 36.8 C 64 18 111/60 08/05/20 08:03 36.7 C 60 18 107/65 08/05/20 08:00 08/05/20 03:15 36.4 C L 59 L 18 116/72 08/05/20 03:00 58 L 16 106/56 L Pulse Ox Pulse Ox 08/05/20 11:32 96 08/05/20 08:03 94 08/05/20 08:00 97 08/05/20 03:15 98 08/05/20 03:00 98
--- NOTE | 2020-08-05 15:20 | Discharge Summary ---
Date of Service August 05, 2020 Admission HPI Per Admitting Provider Pt did have cardiac intervention for in stent stenosis with intervention of the LAD stent, she was discharged on DAPT, she typically is not on a b Jennifer or nitrate, she is statin intolerant and was started on exetimibe . she stated she felt well for a few days but for the last 3 days was fatigued and for the last 24 hours was having atypical chest pain that was similar to her previous angina. It is sharp and prechordal dose not radiate and is not reproducible. She is concerned that her CAD is worsened again Principal Diagnosis Anginal chest pain Discharge Exam Constitutional WD/WN, vitals as above Eyes EOM intact bilaterally; no conjunctival abnormality ENMT external ear and nose normal, oropharynx normal Neck trachea midline, no thyromegaly normal visual inspection Respiratory normal respiratory effort, lungs clear to auscultation no respiratory distress Cardiovascular RRR, no murmur, no edema Gastrointestinal (Abdomen) Inspection/Auscultation: abdomen normal to inspection; abdomen not distended Musculoskeletal no cyanosis or clubbing, extremities motor strength 5/5 Skin no rashes, warm and dry Neurologic moves all extremities and awake Psychiatric Orientation: alert, oriented to person and cooperative Discharge Data Allergies Allergy/AdvReac Type Severity Reaction Status Date / Time codeine Allergy Intermediate RASH Verified 08/04/20 18:39 Penicillins Allergy Intermediate RASH Verified 08/04/20 18:39 Sulfa (Sulfonamide Allergy Intermediate RASH Verified 08/04/20 18:39 Antibiotics) ticagrelor [From Brilinta] AdvReac Intermediate Difficulty Verified 08/04/20 18:39 Breathing Czqpamu-Alz-Guq Reductase AdvReac Mild Muscle Pain Verified 08/04/20 18:39 Inhibitor Consultations 08/04/20 18:38 ED Decision to Admit Stat 08/04/20 21:19 Consult Cardiology Routine Hospital Course (1) CAD (coronary artery disease): pt represents with her typical anginal equivalent. Pt did have b jennifer stopped during her last stay due to bradycardia, may cosider adding coreg tonight , will consult cardiology she typically sees Dr Reis. - Troponins negative. Seen by cardiology with no need for further inpatient testing. - Added Coreg as well as Imdur to help with anginal chest pain. (2) Status post insertion of drug-eluting stent into left anterior descending (LAD) artery: 07/25/20, patient found to have severe single vessel disease with severe LAD disease involving the proximal segment and diffuse in-stent restenosis in prior proximal to mid LAD stent. Decision to proceed with PCI.. Successful PCI of proximal to mid LAD in-stent restenosis with new overlapping drug-eluting stent (2.5 x 30 mm [place]; postdilated with 3.0 NC). Recommend DAPT with aspirin, clopidogrel for at least 1 year. Consider extended therapy in the setting of overlapping stents. (3) Hypothyroidism: remains on Synthroid 50 mcg (4) RA (rheumatoid arthritis): Patient is on methotrexate 10 mg a week with folic acid,. typically takes on friday is on hold (5) Depression with anxiety: Shadia on Lexapro 20, trazodone for sleep 100 mg at bedtime (6) DVT prophylaxis: heparin sc Total Time Total Time Spent Total Time Spent (In Minutes): 35 Discharge Plan Discharge Items Patient Disposition: Home - Self-Care Reason For Visit: CHEST PAIN Discharge Diagnosis: Anginal chest pain without a heart attack or any stress shown on the heart Activity: Resume your previous activity Non-emergency contact: Primary Care Provider and Croze Cutter Call non-emergency contact if: your symptoms worsen Follow-up/Referrals: Shaun Sarabia, [Primary Care Provider] - Diet: Heart Healthy Addtl Attending Provider Instructions: Card, You were admitted to the hospital with chest pain. You recently had a catheterization and stent of your coronary arteries in the heart. We tested troponins (also called cardiac enzymes) for you, and fortunately, they were all normal (also called negative). This is GREAT news! This means you did not have a heart attack and did not have any evidence of stress on your heart. This doesn't mean that the chest pain isn't bothersome and concerning. We have started a medication called carvedilol which helps reduce stress on your heart. This is a twice a day medication that is meant to help lower your blood pressure slightly and also keep your heart beating evenly. Dr. Britton saw you in the hospital and started you on a medication called Imdur which can help reduce symptoms of angina. Please take this medication once per day around the same time. It is not meant to be a "quick acting" medication and should not be taken only "as needed". If this helps, but does not resolve your anginal symptoms, please speak with your dishcloth folder about adjusting the dose or trying a new medication. Of course, if you ever have sustained or severe chest pressure, please come to the hospital or call [phone] in case it is a heart attack. Pending Studies at Discharge: No Stand-Alone Forms: [facility], Smoking Cessation Medications and DC Order Prescriptions: New isosorbide mononitrate 30 mg Tablet Extended Release 24 Hr 30 mg PO QAM Qty: 30 RF: 0 carvedilol 3.125 mg Tablet 3.125 mg PO BID Qty: 60 RF: 0 Continued levothyroxine 50 mcg tablet 50 mcg PO DAILY Qty: 90 RF: 3 clopidogrel 75 mg tablet 75 mg PO QAM Qty: 90 RF: 3 ezetimibe [Zetia] 10 mg tablet 10 mg PO DAILY RF: 0 nitroglycerin 0.4 mg tablet, sublingual 0.4 mg Sublingual DIRECTED PRN (Reason: chest pain) Qty: 25 RF: 1 trazodone 50 mg tablet 100 mg PO HS Qty: 1 RF: 0 cyanocobalamin (vitamin B-12) [Vitamin B-12] 1,000 mcg Tablet 2,000 mcg PO DAILY RF: 0 cholecalciferol (vitamin D3) [Vitamin D3] 1,000 unit Tablet,Chewable 2,000 unit PO DAILY RF: 0 multivitamin Tablet 1 tab PO DAILY RF: 0 methotrexate sodium 2.5 mg Tablet 10 mg PO .WK/UD RF: 0 folic acid 1 mg Tablet 1 mg PO HS RF: 0 diclofenac sodium [Voltaren] 1 % Gel 2 g TOPICAL QID PRN (Reason: Pain) RF: 0 aspirin [Aspirin Low Dose] 81 mg tablet,delayed release (DR/EC) 81 mg PO DAILY Qty: 90 RF: 3 ascorbic acid (vitamin C) 500 mg Tablet,Chewable 500 mg PO DAILY RF: 0 acetaminophen [Tylenol Arthritis Pain] 650 mg Tablet Extended Release 1,300 mg PO Q12H RF: 0 escitalopram oxalate [Lexapro] 10 mg tablet 20 mg PO QAM RF: 0 Discharge Orders: Discharge Order (Routine); Ordered 08/05/20 Ordered By: Reji Hawk Admission Data Admit Date/Time: 08/04/20 18:57 Attending Provider: Reji Hawk Admit Provider: Macario Gonzalez Primary Care Provider: Shaun Sarabia Other Providers: Macario Alexis ; Reji Hawk Other Interventions: Discharge Summary Assessment (RN) Last Done: 08/05/20 13:41 Coding Level of Care Code 54645 OBS Care - Discharge Diagnoses CAD (coronary artery disease) I25.10 Status post insertion of drug-eluting stent into left anterior descending (LAD) artery Z95.5 Hypothyroidism E03.9 RA (rheumatoid arthritis) M06.9 Depression with anxiety F41.8 DVT prophylaxis Z29.9
--- NOTE | 2020-08-06 06:02 | Electrocardiogram Report ---
Test Reason : Blood Pressure : / mmHG Vent. Rate : 060 BPM Atrial Rate : 060 BPM P-R Int : 146 ms QRS Dur : 084 ms QT Int : 434 ms P-R-T Axes : 059 038 038 degrees QTc Int : 434 ms Normal sinus rhythm Possible Left atrial enlargement Borderline ECG When compared with ECG of 25-JUL-2020 10:22, No significant change was found Confirmed by Chance Woodward ([id number]) on 08/06/2020 6:02:26 AM Referred By: Randall Reis Confirmed By:Chance Woodward
== END 2020-08-05 14:38 | disposition home or self-care (01) ==
LOC: EDINP 16:32 → ED 16:32 → SUATTDRO 18:57 → 2S 21:30

== ENCOUNTER 2021-02-07 08:13 | Observation (INO) ==
--- NOTE | 2021-02-07 09:03 | Emergency Department Note ---
History of Present Illness General Chief complaint: Cardiac Assessment Time Seen by Provider: 02/07/21 08:28 History of Present Illness Maximum Pain Intensity: 2 70-year-old female presents to the ED with a chief complaint of chest discomfort. The patient reports that she has been having intermittent chest discomfort for several days randomly. The patient states that it feels somewhat similar to previous chest pains she has had prior to having stents placed but this is slightly more to the right of her chest than typical. Denies recent illnesses. Last stent was in the proximal LAD in July 2020. Prior to that she had an LAD stent less than 6 months prior. The patient follows with Dr. Viveros. She states that she told the cardiac rehab about her symptoms and they recommended that she come in for evaluation. She states that they gave her nitroglycerin sublingual and this did help her pain somewhat. Home Medications Medication Instructions Recorded Confirmed Type diclofenac sodium 1 % topical gel 2 g TOPICAL QID PRN 08/21/18 02/07/21 History (Voltaren) folic acid 1 mg tablet 1 mg PO HS 08/21/18 02/07/21 History methotrexate sodium 2.5 mg tablet 10 mg PO WK 08/21/18 02/07/21 History multivitamin 1 tab PO DAILY 08/21/18 02/07/21 History aspirin 81 mg tablet,delayed 81 mg PO DAILY #90 tab 08/25/18 02/07/21 Rx release (Aspirin Low Dose) ascorbic acid (vitamin C) 500 mg 500 mg PO DAILY 02/01/19 02/07/21 History chewable tablet cholecalciferol (vitamin D3) 25 2,000 unit PO DAILY 06/14/19 02/07/21 History mcg (1,000 unit) chewable tablet (Vitamin D3) cyanocobalamin (vitamin B-12) 2,000 mcg PO DAILY 06/14/19 02/07/21 History 1,000 mcg tablet (Vitamin B-12) nitroglycerin 0.4 mg sublingual 0.4 mg SUBLINGUAL DIRECTED PRN 09/27/19 02/07/21 Rx tablet #25 tab acetaminophen 650 mg 1,300 mg PO Q12H 12/27/19 02/07/21 History tablet,extended release (Tylenol Arthritis Pain) levothyroxine 50 mcg tablet 50 mcg PO DAILY #90 tab 01/21/20 02/07/21 Rx trazodone 50 mg tablet 100 mg PO HS #1 tab 03/20/20 02/07/21 Rx clopidogrel 75 mg tablet 75 mg PO QAM #90 tab 03/27/20 02/07/21 Rx escitalopram oxalate 10 mg tablet 20 mg PO QAM 07/25/20 02/07/21 History (Lexapro) ezetimibe 10 mg tablet (Zetia) 10 mg PO DAILY 07/31/20 02/07/21 History evolocumab 140 mg/mL subcutaneous 140 mg SUBCUT .every 2 weeks ml 12/01/20 02/07/21 History syringe (Repatha Syringe) Allergies Allergy/AdvReac Type Severity Reaction Status Date / Time codeine Allergy Intermediate RASH Verified 02/07/21 10:46 Penicillins Allergy Intermediate RASH Verified 02/07/21 10:46 Sulfa (Sulfonamide Allergy Intermediate RASH Verified 02/07/21 10:46 Antibiotics) ticagrelor [From Brilinta] AdvReac Intermediate Difficulty Verified 02/07/21 10:46 Breathing Xobcgla-Qbg-Rte Reductase AdvReac Mild Muscle Pain Verified 02/07/21 10:46 Inhibitor carvedilol [From Coreg] AdvReac Headache, Verified 02/07/21 10:46 blurred vision isosorbide AdvReac Headache, Verified 02/07/21 10:46 blurred vision Past Med/Surg History Medical History Anemia Aortic valve insufficiency CAD (coronary artery disease) Cardiac Cath with MARTITA placement to proximal to mid LAD 07/25/2020 Carotid artery stenosis Cerebral vascular disease Depression with anxiety Diverticulosis Essential tremor Fibromyalgia GERD (gastroesophageal reflux disease) Hearing deficit HLD (hyperlipidemia) Hypothyroidism Insomnia MCI (mild cognitive impairment) with memory loss NSTEMI (non-ST elevated myocardial infarction) 08/2018--follows with Dr. Mascorro On anticoagulant therapy plavix daily d/t cardiac stent Pigmented skin lesion Postmenopausal atrophic vaginitis RA (rheumatoid arthritis) Tick bite Given Doxycycline 200mg PO x 1 dose (Lyme prophylaxis). [place] hx of at age 22 Vitamin D deficiency Surgical History History of abdominal surgery adhesion removal-twice, d/t endometriosis History of anesthesia reaction slow to wake up during thumb sx 06/09/2019 at [facility] had a block placed and "hit a nerve" caused severe pain and is in physicial therapy History of cardiac cath 08/2018 x1 @ [facility] with 1 stent placed History of cataract surgery RT/LEFT History of section History of colonoscopy (09/13/13) Left sided diverticulosis. Internal hemorrhoids. No biopsies. F/U due 2023. History of coronary artery stent placement (~08/2018) 08/2018 History of esophagogastroduodenoscopy (EGD) (08/14/10) Diagnostic for epigastric pain w/u. Biopsies consistent with mild chronic gastritis. Negative H. pylori. No follow up recommended. History of right breast biopsy benign History of root canal procedure History of thumb surgery left thumb History of total hysterectomy with bilateral salpingo-oophorectomy (BSO) History of wisdom tooth extraction Status post excision of neuroma Status post right foot surgery "had to shave down bone on my foot" Family History Grandfather (Paternal) Acquired amyotrophic lateral sclerosis Sister CREST syndrome Father Pulmonary fibrosis Polyneuropathy Other No family history of adverse response to anesthesia Skin cancer Denies family history of Colon cancer Ovarian cancer Prostate cancer Myocardial infarction Breast cancer Social History Smoking Status: Never smoker Second Hand Exposure: No; Hx Alcohol Use: No Hx Substance Use: No Preferred Language: Lithuanian Communication Ability: Effective Visual Impairment: No Limitations Hearing Ability: Use of Hearing Aid Phys Asst Required: No Beliefs That Will Affect Care: None marital status: Current Living Situation: Spouse Current Living Situation Comment: two story home current occupational status: retired current occupation: Retired Feels Safe at Home: Yes Childhood Exposure to Second-Hand Smoke: Yes caffeine: Yes Dental Care, Regularly: Yes Physical Activity Frequency: Daily Seatbelt Use: always Sunscreen Use: Yes Assistive Devices: Glasses and Hearing Aid - Bilateral Review of Systems A total of 10 systems reviewed and were otherwise negative Physical Exam Vital Signs Vital Signs - 24 hr 02/07/21 08:17 02/07/21 08:30 02/07/21 08:31 Temperature 36.9 C Temperature Source Oral Pulse Rate 77 68 79 Pulse Rate from SpO2 Sensor 42 L 64 Respiratory Rate 21 14 20 Respiratory Effort / Characteristics Non-Labored Respiratory Depth Normal Respiratory Pattern Regular Blood Pressure 151/59 H 119/64 151/59 H Blood Pressure Mean 89 82 89 Pulse Oximetry 99 98 98 Oxygen Delivery Method Room Air Sepsis Recent Fever Within 48 Hours No Sepsis New/Unexplained Change in Mental Status N/A Sepsis Action Taken by Nursing No Action Required 02/07/21 09:00 02/07/21 09:31 02/07/21 10:00 Temperature Temperature Source Pulse Rate 65 67 63 Pulse Rate from SpO2 Sensor 70 56 L 59 L Respiratory Rate 23 14 16 Respiratory Effort / Characteristics Respiratory Depth Respiratory Pattern Blood Pressure 121/64 132/53 L 128/64 Blood Pressure Mean 83 79 85 Pulse Oximetry 96 98 96 Oxygen Delivery Method Sepsis Recent Fever Within 48 Hours Sepsis New/Unexplained Change in Mental Status Sepsis Action Taken by Nursing 02/07/21 10:30 02/07/21 11:00 02/07/21 11:30 Temperature Temperature Source Pulse Rate 55 L 56 L 59 L Pulse Rate from SpO2 Sensor 55 L 57 L 59 L Respiratory Rate 12 19 17 Respiratory Effort / Characteristics Respiratory Depth Respiratory Pattern Blood Pressure 131/65 133/65 137/66 Blood Pressure Mean 87 87 89 Pulse Oximetry 96 95 96 Oxygen Delivery Method Sepsis Recent Fever Within 48 Hours Sepsis New/Unexplained Change in Mental Status Sepsis Action Taken by Nursing 02/07/21 12:00 02/07/21 12:30 Temperature Temperature Source Pulse Rate 68 72 Pulse Rate from SpO2 Sensor 72 76 Respiratory Rate 21 15 Respiratory Effort / Characteristics Respiratory Depth Respiratory Pattern Blood Pressure 144/57 H 137/59 L Blood Pressure Mean 86 85 Pulse Oximetry 97 97 Oxygen Delivery Method Sepsis Recent Fever Within 48 Hours Sepsis New/Unexplained Change in Mental Status Sepsis Action Taken by Nursing CONSTITUTIONAL/VITAL SIGNS: Reviewed / noted above. GENERAL: Non-toxic in appearance. INTEGUMENTARY: Warm, dry, and [place]. HEAD: Normocephalic. EYES: without scleral icterus or trauma. ENT/OROPHARYNX: clear and moist. LYMPHADENOPATHY/NECK: Is supple without lymphadenopathy or meningismus. RESPIRATORY: Clear to auscultation bilaterally. No increased work of breathing. CARDIOVASCULAR: Regular rate and rhythm. GI/ABDOMEN: Soft and nontender. No organomegaly or pulsatile mass. EXTREMITIES: Warm and well perfused. BACK: No CVA tenderness. NEUROLOGICAL: Intact without focal deficits. PSYCHIATRIC: normal affect. MUSCULOSKELETAL: Normally developed with good muscle tone. TRIAGE NURSING DOCUMENTATION REVIEWED. Course Administered Medications Morphine Sulfate (Morphine Sulfate 2 Mg/Ml Carp) 2 mg IV Q3H PRN PRN Reason: Pain Stop: 02/21/21 12:22 Last Admin: 02/07/21 12:34 Dose: 2 mg Documented by: [id number] Nitroglycerin (Nitroglycerin 2% Ointment 30gm Tube) 0.5 inch EXT Q6H TITO Stop: 03/09/21 11:59 Last Admin: 02/07/21 12:06 Dose: Not Given Documented by: [id number] Discontinued Medications Nitroglycerin (Nitroglycerin Sl 0.4 Mg/Tab Tab) 0.4 mg SL NOW STA Stop: 02/07/21 12:24 Last Admin: 02/07/21 12:34 Dose: 0.4 mg Documented by: [id number] Medical Decision Making Differential Diagnosis The differential that was considered includes acute myocardial infarction, acute coronary syndrome, myocarditis, pericarditis, pericardial effusions /tamponade, esophageal perforation, thoracic aortic dissection, pulmonary embolism, pneumonia, pneumothorax, pancreatitis, shingles, acute cholecystitis, perforated abdominal viscus. Medical Records Attestation: I reviewed the patient's medical records. Home Medications Current Medication List: was personally reviewed by me Laboratory Data Attestation: I reviewed the patient's lab results. Result diagrams: 02/07/21 08:56 02/07/21 08:56 Lab Results 02/07/21 02/07/21 02/07/21 Range/Units 08:56 08:56 12:27 WBC 7.60 (4.8-10.8) K/uL RBC 3.64 L (4.2-5.4) M/uL Hgb 11.9 L (12.0-16.0) g/dL Hct 36.0 L (37-47) % MCV 98.9 (80-100) fL MCH 32.7 (25-34) pg MCHC 33.1 (32-36) g/dL RDW Std Deviation 50.6 H (36.4-46.3) fL RDW Coeff of [place]ard 14.1 (11.5-14.5) % Plt Count 333 (130-400) K/uL MPV 9.8 (7.4-10.4) fL Immature Gran % (Auto) 0.1 % Neut % (Auto) 48.5 % Lymph % (Auto) 39.5 % [place] % (Auto) 10.5 % Eos % (Auto) 1.3 % Baso % (Auto) 0.1 % Neut # (Auto) 3.68 (1.4-6.5) K/uL Lymph # (Auto) 3.00 (1.2-3.4) K/uL [place] # (Auto) 0.80 H (0.11-0.59) K/uL Eos # (Auto) 0.10 (0-0.5) K/uL Baso # (Auto) 0.01 (0-0.2) K/uL Immature Gran # (Auto) 0.01 (0.00-0.02) K/uL Sodium 141 (136-145) mmol/L Potassium 4.2 (3.5-5.1) mmol/L Chloride 111 H (98-107) mmol/L Carbon Dioxide 25 (21-32) mmol/L Anion Gap 5.0 (3-11) BUN 21 H (7-18) mg/dl Creatinine 0.73 (0.6-1.2) mg/dl Est Cr Clr Drug Dosing 61.9 ml/min Est GFR ( Amer) 96.7 ml/min Est GFR (Non-Af Amer) 83.4 ml/min BUN/Creatinine Ratio 29.0 H (10-20) Glucose 83 (70-99) mg/dl Calcium 8.5 (8.5-10.1) mg/dl Total Bilirubin 0.2 (0.2-1) mg/dl AST 18 (15-37) U/L ALT 27 (12-78) U/L Alkaline Phosphatase 70 (45-117) U/L Troponin I < 0.015 (0-0.045) ng/ml NT-Pro-B Natriuret Pep 290 (0-900) pg/ml Total Protein 6.2 L (6.4-8.2) gm/dl Albumin 3.2 L (3.4-5.0) gm/dl Globulin 3.0 (2.5-4.0) gm/dl Albumin/Globulin Ratio 1.1 (0.9-2) Lipase 108 (73-393) U/L COVID-19 Eval Order Covid19 at [facility] Imaging Data Radiologist's Impression: Chest X-Ray 02/07/21 08:53 XR chest 1V portable CLINICAL HISTORY: Chest Pain COMPARISON STUDY: October 20, 2020 FINDINGS: No pneumothorax. No pleural effusion. No large infiltrates or consolidative lesions are seen. Small opacity at the right base is unchanged since recent prior study, could represent pulmonary nodule or small scarring. Cardiomediastinal silhouette is within normal limits in size. No significant pulmonary vascular congestion.. Aorta is calcified. Vascular stent is again seen projecting to the anatomical region of the left coronary artery. Osseous structures: unremarkable IMPRESSION: 1. No acute pulmonary process. 2. Redemonstration of stable small opacity at the right lower lung which might represent pulmonary nodule or scarring. Please correlate above-mentioned findings with prior history. Follow-up evaluation with CT of the chest without IV contrast on nonemergency basis is suggested. ACT 112: Positive. There are findings on this exam that require communication between the performing entity and the patient following Patient Test Result Information Act [place] Act 112) guidelines. The above report was generated using voice recognition software. It may contain grammatical, syntax or spelling errors. Electronically signed by: Osiris Vega DO 02/07/2021 9:48 AM ECG Data Attestation: I personally reviewed and interpreted this ECG as follows: Additional Comments: Twelve-lead EKG: Per my interpretation there is a sinus rhythm at a rate of 73. No ST elevation. Trigeminal PVCs. Normal QTC. MDM Narrative Patient presents with chest pain that feels somewhat similar to her previous chest pains that she had prior to cardiac stenting with exception is more on the right side than central. She did have a nitroglycerin at cardiac rehab today that seemed to help a little. Her blood pressure is a little elevated. Twelve- lead EKG did not show any acute ischemic changes. She does have trigeminal PVCs. Troponin was negative, BNP is normal, complete metabolic panel was unremarkable, CBC is unremarkable and a chest x-ray did not show acute process. Dr. Hoang saw the patient in the ED after we consulted him. He feels the patient should be monitored in the hospital by the hospitalist. She will be seen by the hospitalist for further inpatient evaluation and care. Impression & Plan Chest pain Discharge Plan Visit Data Chief Complaint: Cardiac Assessment ED Provider: Bora Kevin ED Midlevel Provider: Yaya Moeller Discharge Problem: Chest pain Patient Disposition: Being Evaluated by Hospitalist Forms Stand Alone Forms: My [facility], Virtual Emergency Department, Important Visit Information Prescriptions Prescriptions: No Action levothyroxine 50 mcg tablet 50 mcg PO DAILY Qty: 90 RF: 3 clopidogrel 75 mg tablet 75 mg PO QAM Qty: 90 RF: 3 ezetimibe [Zetia] 10 mg tablet 10 mg PO DAILY RF: 0 Repatha Syringe 140 mg/mL syringe 140 mg subcut .every 2 weeks RF: 0 nitroglycerin 0.4 mg tablet, sublingual 0.4 mg Sublingual DIRECTED PRN (Reason: chest pain) Qty: 25 RF: 1 trazodone 50 mg tablet 100 mg PO HS Qty: 1 RF: 0 cyanocobalamin (vitamin B-12) [Vitamin B-12] 1,000 mcg Tablet 2,000 mcg PO DAILY RF: 0 cholecalciferol (vitamin D3) [Vitamin D3] 1,000 unit Tablet,Chewable 2,000 unit PO DAILY RF: 0 multivitamin Tablet 1 tab PO DAILY RF: 0 methotrexate sodium 2.5 mg Tablet 10 mg PO WK RF: 0 folic acid 1 mg Tablet 1 mg PO HS RF: 0 diclofenac sodium [Voltaren] 1 % Gel 2 g TOPICAL QID PRN (Reason: Pain) RF: 0 aspirin [Aspirin Low Dose] 81 mg tablet,delayed release (DR/EC) 81 mg PO DAILY Qty: 90 RF: 3 ascorbic acid (vitamin C) 500 mg Tablet,Chewable 500 mg PO DAILY RF: 0 acetaminophen [Tylenol Arthritis Pain] 650 mg Tablet Extended Release 1,300 mg PO Q12H RF: 0 escitalopram oxalate [Lexapro] 10 mg tablet 20 mg PO QAM RF: 0 Referrals Referrals: Shaun Sarabia DO [Primary Care Provider] -
[2021-02-07 09:15] LABS: Basophils # (auto) 0.01 K/uL (0-0.2); Basophils % (auto) 0.1 %; Eosinophils % (auto) 1.3 %; Hemoglobin 11.9 g/dL (12.0-16.0); Immature Granulocytes # (auto) 0.01 K/uL (0.00-0.02); Immature Granulocytes % (auto) 0.1 %; Lymphocytes % (auto) 39.5 %; Mean Corpuscular Hemoglobin 32.7 pg (25-34); Mean Corpuscular Hgb Conc 33.1 g/dL (32-36); Mean Corpuscular Volume 98.9 fL (80-100); Mean Platelet Volume 9.8 fL (7.4-10.4); Monocytes % (auto) 10.5 %; Neutrophils # (auto) 3.68 K/uL (1.4-6.5); Neutrophils % (auto) 48.5 %; Platelet Count 333 K/uL (130-400); RDW Coefficient of Variation 14.1 % (11.5-14.5); RDW Standard Deviation 50.6 fL (36.4-46.3); Red Blood Count 3.64 M/uL (4.2-5.4)
[2021-02-07 09:36] LABS: Alanine Aminotransferase 27 U/L (12-78); Albumin Level 3.2 gm/dl (3.4-5.0); Aspartate Aminotransferase 18 U/L (15-37); Blood Urea Nitrogen 21 mg/dl (7-18); Calcium 8.5 mg/dl (8.5-10.1); Carbon Dioxide 25 mmol/L (21-32); Chloride 111 mmol/L (98-107); Creatinine Clr Calc Pharmacy 61.9 ml/min; Est GFR (African American) 96.7 ml/min; Est GFR (Non-African American) 83.4 ml/min; Glucose 83 mg/dl (70-99); Lipase 108 U/L (73-393); Potassium 4.2 mmol/L (3.5-5.1); Sodium 141 mmol/L (136-145)
[2021-02-07 09:41] LABS: Albumin Globulin Ratio 1.1 (0.9-2); Alkaline Phosphatase 70 U/L (45-117); Bilirubin,Total 0.2 mg/dl (0.2-1); NT Pro B Type Natriuretic Pept 290 pg/ml (0-900); Total Protein 6.2 gm/dl (6.4-8.2); Troponin I < 0.015 ng/ml (0-0.045)
--- NOTE | 2021-02-07 09:49 | XRay Report ---
XR chest 1V portable CLINICAL HISTORY: Chest Pain COMPARISON STUDY: October 20, 2020 FINDINGS: No pneumothorax. No pleural effusion. No large infiltrates or consolidative lesions are seen. Small opacity at the right base is unchanged since recent prior study, could represent pulmonary nodule or small scarring. Cardiomediastinal silhouette is within normal limits in size. No significant pulmonary vascular congestion.. Aorta is calcified. Vascular stent is again seen proje cting to the anatomical region of the left coronary artery. Osseous structures: unremarkable IMPRESSION: 1. No acute pulmonary process. 2. Redemonstration of stable small opacity at the right lower lung which might represent pulmonary n odule or scarring. Please correlate above-mentioned findings with prior history. Follow-up evaluation with CT of the chest without IV contrast on nonemergency basis is suggested. ACT 112: Positive. There are findings on this exam that require communication between the performing entity and the patient following Patient Test Result Information Act [place] Act 112) guidelines. The above report was generated using voice recognition software. It may contain grammatical, syntax o r spelling errors. Electronically signed by: Osiris Vega DO 02/07/2021 9:48 AM
--- NOTE | 2021-02-07 11:04 | Cardiology Consultation ---
Date of Consultation February 07, 2021 Assessment & Plan (1) Status post insertion of drug-eluting stent into left anterior descending (LAD) artery: (2) Statin intolerance: (3) Chest pain: (4) RA (rheumatoid arthritis): (5) Fibromyalgia: (6) Depression with anxiety: The patient's chest pain is atypical and that it has been more or less continuous for several days and not related to exertion and despite having prolonged symptoms her cardiac markers are negative and the EKG shows no acute changes. She does have a history of recurrent atypical chest pain but also a history of an LAD stent with in-stent restenosis requiring a second stent earlier this year. I would recommend that she be admitted to observation to have additional cardiac markers drawn. She did have a complete work-up including a stress test in July that was negative. We will have further recommendations after the patient's repeat cardiac markers. History of Present Illness History of Present Illness This is a 70-year-old female with the cardiac history as outlined below. She also has a history of rheumatoid arthritis, GERD, fibromyalgia and anxiety. Her daughter is home from [place] on leave. She is scheduled to go back on Friday. The patient has been feeling some stress, anxiety and chest discomfort since Friday. She does attend cardiac rehab and was there today when she mentioned her chest discomfort. She was given sublingual nitroglycerin and sent to the emergency department. Her EKG shows no acute changes and she has no elevation in her cardiac markers. 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 She describes her chest discomfort to be more or less continuous since Friday. It is not necessarily related to activity. Cardiac History: August,, present amount any with chest discomfort, non ST segment elevation myocardial infarction, peak troponin I 1.6 nanogram per milliliter. Underwent cardiac catheterization performed by Dr. Bronson with culprit LAD stenosis for which the patient underwent PCI, drug-eluting stent. July,, presented as an outpatient with exertional chest pressure and dyspnea, exercise stress echocardiogram was positive for inducible ischemia and she had undergone a repeat cardiac catheterization 07/25/2020 demonstrating proximal/mid LAD stenosis with 80% stenosis and in stent restenosis of the previously placed LAD stent she therefore received 1 new drug-eluting stent to the proximal to mid LAD. Several weeks after her July, stent, she was admitted again to [facility] with recurrent chest pain, serial troponin levels and EKG tracings were without acute changes. Long-standing history of statin intolerance Allergies Allergy/AdvReac Type Severity Reaction Status Date / Time codeine Allergy Intermediate RASH Verified 02/07/21 10:46 Penicillins Allergy Intermediate RASH Verified 02/07/21 10:46 Sulfa (Sulfonamide Allergy Intermediate RASH Verified 02/07/21 10:46 Antibiotics) ticagrelor [From Brilinta] AdvReac Intermediate Difficulty Verified 02/07/21 10:46 Breathing Xcufpsh-Asm-Evk Reductase AdvReac Mild Muscle Pain Verified 02/07/21 10:46 Inhibitor carvedilol [From Coreg] AdvReac Headache, Verified 02/07/21 10:46 blurred vision isosorbide AdvReac Headache, Verified 02/07/21 10:46 blurred vision Home Medications Medication Instructions Recorded Confirmed Type diclofenac sodium 1 % topical gel 2 g TOPICAL QID PRN 08/21/18 02/07/21 History (Voltaren) folic acid 1 mg tablet 1 mg PO HS 08/21/18 02/07/21 History methotrexate sodium 2.5 mg tablet 10 mg PO WK 08/21/18 02/07/21 History multivitamin 1 tab PO DAILY 08/21/18 02/07/21 History aspirin 81 mg tablet,delayed 81 mg PO DAILY #90 tab 08/25/18 02/07/21 Rx release (Aspirin Low Dose) ascorbic acid (vitamin C) 500 mg 500 mg PO DAILY 02/01/19 02/07/21 History chewable tablet cholecalciferol (vitamin D3) 25 2,000 unit PO DAILY 06/14/19 02/07/21 History mcg (1,000 unit) chewable tablet (Vitamin D3) cyanocobalamin (vitamin B-12) 2,000 mcg PO DAILY 06/14/19 02/07/21 History 1,000 mcg tablet (Vitamin B-12) nitroglycerin 0.4 mg sublingual 0.4 mg SUBLINGUAL DIRECTED PRN 09/27/19 02/07/21 Rx tablet #25 tab acetaminophen 650 mg 1,300 mg PO Q12H 12/27/19 02/07/21 History tablet,extended release (Tylenol Arthritis Pain) levothyroxine 50 mcg tablet 50 mcg PO DAILY #90 tab 01/21/20 02/07/21 Rx trazodone 50 mg tablet 100 mg PO HS #1 tab 03/20/20 02/07/21 Rx clopidogrel 75 mg tablet 75 mg PO QAM #90 tab 03/27/20 02/07/21 Rx escitalopram oxalate 10 mg tablet 20 mg PO QAM 07/25/20 02/07/21 History (Lexapro) ezetimibe 10 mg tablet (Zetia) 10 mg PO DAILY 07/31/20 02/07/21 History evolocumab 140 mg/mL subcutaneous 140 mg SUBCUT .every 2 weeks ml 12/01/20 02/07/21 History syringe (Repatha Syringe) Patient History Medical History Anemia Aortic valve insufficiency CAD (coronary artery disease) Cardiac Cath with MARTITA placement to proximal to mid LAD 07/25/2020 Carotid artery stenosis Cerebral vascular disease Depression with anxiety Diverticulosis Essential tremor Fibromyalgia GERD (gastroesophageal reflux disease) Hearing deficit HLD (hyperlipidemia) Hypothyroidism Insomnia MCI (mild cognitive impairment) with memory loss NSTEMI (non-ST elevated myocardial infarction) 08/2018--follows with Dr. Mascorro On anticoagulant therapy plavix daily d/t cardiac stent Pigmented skin lesion Postmenopausal atrophic vaginitis RA (rheumatoid arthritis) Tick bite Given Doxycycline 200mg PO x 1 dose (Lyme prophylaxis). Tularemia hx of at age 22 Vitamin D deficiency Surgical History History of abdominal surgery adhesion removal-twice, d/t endometriosis History of anesthesia reaction slow to wake up during thumb sx 06/09/2019 at [facility] had a block placed and "hit a nerve" caused severe pain and is in physicial therapy History of cardiac cath 08/2018 x1 @ [facility] with 1 stent placed History of cataract surgery RT/LEFT History of section History of colonoscopy (09/13/13) Left sided diverticulosis. Internal hemorrhoids. No biopsies. F/U due 2023. History of coronary artery stent placement (~08/2018) 08/2018 History of esophagogastroduodenoscopy (EGD) (08/14/10) Diagnostic for epigastric pain w/u. Biopsies consistent with mild chronic gastritis. Negative H. pylori. No follow up recommended. History of right breast biopsy benign History of root canal procedure History of thumb surgery left thumb History of total hysterectomy with bilateral salpingo-oophorectomy (BSO) History of wisdom tooth extraction Status post excision of neuroma Status post right foot surgery "had to shave down bone on my foot" Family History Grandfather (Paternal) Acquired amyotrophic lateral sclerosis Sister CREST syndrome Father Pulmonary fibrosis Polyneuropathy Other No family history of adverse response to anesthesia Skin cancer Denies family history of Colon cancer Ovarian cancer Prostate cancer Myocardial infarction Breast cancer Social History Smoking Status: Never smoker Second Hand Exposure: No; Hx Alcohol Use: No Hx Substance Use: No Preferred Language: [place] Communication Ability: Effective Visual Impairment: No Limitations Hearing Ability: Use of Hearing Aid 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 All other 10 point review of systems are negative. Physical Exam Physical Exam: General: no acute distress and stated age Head: normocephalic, no masses, lesions, tenderness or abnormalities Eyes: conjunctiva are pink and non-injected, sclera clear Neck: supple, no adenopathy, no bruits, normal jugular venous pulse, no hepatojugular reflux Chest: normal shape and normal respiratory effort Lungs: clear to auscultation and percussion Cardiac Exam: - regular rate & rhythm, no murmurs gallops or rubs - normal S1, normal S2 Pulses: 2(+) throughout Abdomen: abdomen soft, non-tender, no abnormal masses and no hepatosplenomegaly Musculoskeletal: no gait disturbance, no joint inflammation, no deforming arthritis Extremities: no edema and no cyanosis Neuro: grossly normal exam Results & Data ([facility]) Vital Signs (Past 12 Hours) Vital Signs Temp Pulse Resp BP Pulse Ox 02/07/21 10:30 55 L 12 131/65 96 02/07/21 10:00 63 16 128/64 96 02/07/21 09:31 67 14 132/53 L 98 02/07/21 09:00 65 23 121/64 96 02/07/21 08:31 36.9 C 79 20 151/59 H 98 02/07/21 08:30 68 14 119/64 98 02/07/21 08:17 77 21 151/59 H 99 Laboratory Results Laboratory Results - last 24 hr 02/07/21 02/07/21 08:56 08:56 WBC 7.60 RBC 3.64 L Hgb 11.9 L Hct 36.0 L MCV 98.9 MCH 32.7 MCHC 33.1 RDW Std Deviation 50.6 H RDW Coeff of Rashard 14.1 Plt Count 333 MPV 9.8 Immature Gran % (Auto) 0.1 Neut % (Auto) 48.5 Lymph % (Auto) 39.5 Crosby % (Auto) 10.5 Eos % (Auto) 1.3 Baso % (Auto) 0.1 Neut # (Auto) 3.68 Lymph # (Auto) 3.00 Crosby # (Auto) 0.80 H Eos # (Auto) 0.10 Baso # (Auto) 0.01 Immature Gran # (Auto) 0.01 Sodium 141 Potassium 4.2 Chloride 111 H Carbon Dioxide 25 Anion Gap 5.0 BUN 21 H Creatinine 0.73 Est Cr Clr Drug Dosing 61.9 Est GFR ( Amer) 96.7 Est GFR (Non-Af Amer) 83.4 BUN/Creatinine Ratio 29.0 H Glucose 83 Calcium 8.5 Total Bilirubin 0.2 AST 18 ALT 27 Alkaline Phosphatase 70 Troponin I < 0.015 NT-Pro-B Natriuret Pep 290 Total Protein 6.2 L Albumin 3.2 L Globulin 3.0 Albumin/Globulin Ratio 1.1 Lipase 108 Medications Administered Medications diclofenac sodium 1 % topical gel (Voltaren) 2 g TOPICAL QID PRN 08/21/18 [History Confirmed 02/07/21] folic acid 1 mg tablet 1 mg PO HS 08/21/18 [History Confirmed 02/07/21] methotrexate sodium 2.5 mg tablet 10 mg PO WK 08/21/18 [History Confirmed 02/07/21] multivitamin 1 tab PO DAILY 08/21/18 [History Confirmed 02/07/21] aspirin 81 mg tablet,delayed release (Aspirin Low Dose) 81 mg PO DAILY #90 tab 08/25/18 [Rx Confirmed 02/07/21] ascorbic acid (vitamin C) 500 mg chewable tablet 500 mg PO DAILY 02/01/19 [History Confirmed 02/07/21] cholecalciferol (vitamin D3) 25 mcg (1,000 unit) chewable tablet (Vitamin D3) 2,000 unit PO DAILY 06/14/19 [History Confirmed 02/07/21] cyanocobalamin (vitamin B-12) 1,000 mcg tablet (Vitamin B-12) 2,000 mcg PO DAILY 06/14/19 [History Confirmed 02/07/21] nitroglycerin 0.4 mg sublingual tablet 0.4 mg SUBLINGUAL DIRECTED PRN #25 tab 09/27/19 [Rx Confirmed 02/07/21] acetaminophen 650 mg tablet,extended release (Tylenol Arthritis Pain) 1,300 mg PO Q12H 12/27/19 [History Confirmed 02/07/21] levothyroxine 50 mcg tablet 50 mcg PO DAILY #90 tab 01/21/20 [Rx Confirmed 02/07/21] trazodone 50 mg tablet 100 mg PO HS #1 tab 03/20/20 [Rx Confirmed 02/07/21] clopidogrel 75 mg tablet 75 mg PO QAM #90 tab 03/27/20 [Rx Confirmed 02/07/21] escitalopram oxalate 10 mg tablet (Lexapro) 20 mg PO QAM 07/25/20 [History C onfirmed 02/07/21] ezetimibe 10 mg tablet (Zetia) 10 mg PO DAILY 07/31/20 [History Confirmed 02/07/21] evolocumab 140 mg/mL subcutaneous syringe (Repatha Syringe) 140 mg SUBCUT .every 2 weeks ml 12/01/20 [History Confirmed 02/07/21]
[2021-02-07] MEDS ORDERED: NITROGLYCERIN 2% OINTMENT 30GM TUBE EXT SCH (12:00)
[2021-02-07] MEDS ORDERED: NITROGLYCERIN SL 0.4 MG/TAB TAB SL PRN ×2 (12:23→16:26)
[2021-02-07] MEDS ORDERED: NITROGLYCERIN SL 0.4 MG/TAB TAB SL STA (12:23)
[2021-02-07] MEDS ORDERED: MoRPHine SULFATE 2 MG/ML CARP IV PRN (12:23)
[2021-02-07] MEDS ORDERED: HEPARIN SOD 5,000 UNIT/0.5 ML VIAL SQ STA (12:31)
--- NOTE | 2021-02-07 12:58 | History & Physical Report ---
Date of Service February 07, 2021 Assessment & Plan (1) Chest pain: Plan: Patient's previously had coronary interventions with in-stent thrombosis and July 2020. She does relate that her symptoms are different than usual however they are reproducible with exertion. Patient will have serial troponins drawn. Should be on telemetry floor. She will be EKG in the morning. [facility] cardiology has already seen the patient in the emergency department and they are aware of her consultation. Patient be kept n.p.o. after midnight in case we need to proceed to interventional for stratification. Patient remains on dual antiplatelet therapy of aspirin 81 Plavix 75 (2) Statin intolerance: Plan: Patient does have a statin intolerance she remains on Zetia (3) Hypothyroidism: Plan: Patient continues on Synthroid at 50 mcg a day (4) RA (rheumatoid arthritis): Plan: Patient will have her methotrexate held as well as her he will loosen Mab (5) GERD (gastroesophageal reflux disease): Plan: Patient will be on Pepcid (6) Depression with anxiety: Plan: Patient states she is under increasing stressors of late her daughter is in town from the she remains on Lexapro therapy with trazodone at bedtime (7) DVT prophylaxis: Plan: 1 dose of heparin subcu was given for DVT prevention History of Present Illness Chief Complaint: Patient's had escalation of chest pain symptoms over the last few days worsened that cardiac rehab both Friday and today. This is similar nature to her left-sided chest pain but is on the right side of her chest. It feels like a pressure. Patient states she has been on increasing stress lately as she was looking for housing for her daughter in the [facility] area over the weekend and it tires her out. Patient's been able to do low-level exercise such as walk around the grocery store without recurrence of her pain. However on the elliptical bicycle at cardiac rehab this definitely exacerbated her pain. The pain was not associate with any other symptoms such as shortness of breath diaphoresis. Patient said no increase in body weight or orthopnea of late. In the emergency department the patient's had a negative EKG and negative in itial troponin. This pain this has no reproducible nature to it. Her chest x- ray is clear. Covid testing is pending at present Primary Care Provider: Shaun Sarabia, Allergies Allergy/AdvReac Type Severity Reaction Status Date / Time codeine Allergy Intermediate RASH Verified 02/07/21 10:46 Penicillins Allergy Intermediate RASH Verified 02/07/21 10:46 Sulfa (Sulfonamide Allergy Intermediate RASH Verified 02/07/21 10:46 Antibiotics) ticagrelor [From Brilinta] AdvReac Intermediate Difficulty Verified 02/07/21 10:46 Breathing [place]t-Bwy-Qbw Reductase AdvReac Mild Muscle Pain Verified 02/07/21 10:46 Inhibitor carvedilol [From Coreg] AdvReac Headache, Verified 02/07/21 10:46 blurred vision isosorbide AdvReac Headache, Verified 02/07/21 10:46 blurred vision Home Medications Medication Instructions Recorded Confirmed Type diclofenac sodium 1 % topical gel 2 g TOPICAL QID PRN 08/21/18 02/07/21 History (Voltaren) folic acid 1 mg tablet 1 mg PO HS 08/21/18 02/07/21 History methotrexate sodium 2.5 mg tablet 10 mg PO WK 08/21/18 02/07/21 History multivitamin 1 tab PO DAILY 08/21/18 02/07/21 History aspirin 81 mg tablet,delayed 81 mg PO DAILY #90 tab 08/25/18 02/07/21 Rx release (Aspirin Low Dose) ascorbic acid (vitamin C) 500 mg 500 mg PO DAILY 02/01/19 02/07/21 History chewable tablet cholecalciferol (vitamin D3) 25 2,000 unit PO DAILY 06/14/19 02/07/21 History mcg (1,000 unit) chewable tablet (Vitamin D3) cyanocobalamin (vitamin B-12) 2,000 mcg PO DAILY 06/14/19 02/07/21 History 1,000 mcg tablet (Vitamin B-12) nitroglycerin 0.4 mg sublingual 0.4 mg SUBLINGUAL DIRECTED PRN 09/27/19 02/07/21 Rx tablet #25 tab acetaminophen 650 mg 1,300 mg PO Q12H 12/27/19 02/07/21 History tablet,extended release (Tylenol Arthritis Pain) levothyroxine 50 mcg tablet 50 mcg PO DAILY #90 tab 01/21/20 02/07/21 Rx trazodone 50 mg tablet 100 mg PO HS #1 tab 03/20/20 02/07/21 Rx clopidogrel 75 mg tablet 75 mg PO QAM #90 tab 03/27/20 02/07/21 Rx escitalopram oxalate 10 mg tablet 20 mg PO QAM 07/25/20 02/07/21 History (Lexapro) ezetimibe 10 mg tablet (Zetia) 10 mg PO DAILY 07/31/20 02/07/21 History evolocumab 140 mg/mL subcutaneous 140 mg SUBCUT .every 2 weeks ml 12/01/20 02/07/21 History syringe (Repatha Syringe) Past Med/Surg History Medical History (Updated 02/07/21 @ 12:57 by Macario Gonzalez MD) Anemia Aortic valve insufficiency CAD (coronary artery disease) Cardiac Cath with MARTITA placement to proximal to mid LAD 07/25/2020 Carotid artery stenosis Cerebral vascular disease Depression with anxiety Diverticulosis Essential tremor Fibromyalgia GERD (gastroesophageal reflux disease) Hearing deficit HLD (hyperlipidemia) Hypothyroidism Insomnia MCI (mild cognitive impairment) with memory loss NSTEMI (non-ST elevated myocardial infarction) 08/2018--follows with Dr. Mascorro On anticoagulant therapy plavix daily d/t cardiac stent Pigmented skin lesion Postmenopausal atrophic vaginitis RA (rheumatoid arthritis) Tick bite Given Doxycycline 200mg PO x 1 dose (Lyme prophylaxis). [place]aremia hx of at age 22 Vitamin D deficiency Surgical History History of abdominal surgery adhesion removal-twice, d/t endometriosis History of anesthesia reaction slow to wake up during thumb sx 06/09/2019 at [facility] had a block placed and "hit a nerve" caused severe pain and is in physicial therapy History of cardiac cath 08/2018 x1 @ [facility] with 1 stent placed History of cataract surgery RT/LEFT History of section History of colonoscopy (09/13/13) Left sided diverticulosis. Internal hemorrhoids. No biopsies. F/U due 2023. History of coronary artery stent placement (~08/2018) 08/2018 History of esophagogastroduodenoscopy (EGD) (08/14/10) Diagnostic for epigastric pain w/u. Biopsies consistent with mild chronic gastritis. Negative H. pylori. No follow up recommended. History of right breast biopsy benign History of root canal procedure History of thumb surgery left thumb History of total hysterectomy with bilateral salpingo-oophorectomy (BSO) History of wisdom tooth extraction Status post excision of neuroma Status post right foot surgery "had to shave down bone on my foot" Family History Grandfather (Paternal) Acquired amyotrophic lateral sclerosis Sister CREST syndrome Father Pulmonary fibrosis Polyneuropathy Other No family history of adverse response to anesthesia Skin cancer Denies family history of Colon cancer Ovarian cancer Prostate cancer Myocardial infarction Breast cancer Social History Smoking Status: Never smoker Second Hand Exposure: No; Hx Alcohol Use: No Hx Substance Use: No Preferred Language: Maori Communication Ability: Effective Visual Impairment: No Limitations Hearing Ability: Use of Hearing Aid Manager Mortgage Required: No Beliefs That Will Affect Care: None marital status: Current Living Situation: Spouse Current Living Situation Comment: two story home current occupational status: retired current occupation: Retired Feels Safe at Home: Yes Childhood Exposure to Second-Hand Smoke: Yes caffeine: Yes Dental Care, Regularly: Yes Physical Activity Frequency: Daily Seatbelt Use: always Sunscreen Use: Yes Assistive Devices: Glasses and Hearing Aid - Bilateral Review of Systems Review of Systems: Mild distress and fatigue no headache, no visual changes no speech or swallowing issues Right-sided chest pain and palpitations feels more like a pressure no shortness of breath, cough or wheezes no abdominal pain, nausea or vomiting, diarrhea or constipation no dysuria, hematuria or frequency no focal joint pain or swelling no back pain, CVA tenderness or radicular pain no bruising, bleeding or rashes no focal signs of weakness or numbness or altered sensation no complaints of anxiety or depression.. Physical Exam Physical Exam: The patient appeared well nourished and normally developed. Vital signs as documented. Head exam is normocephalic atraumatic Neck is without JVD, thyromegaly, or carotid bruits. Lungs are clear to auscultation, no focal loss of breath sounds Cardiac exam, Rhythm is regular.. No murmurs, rubs or gallops. No chest wall tenderness to palpation Abdominal exam reveals normal bowel sounds, soft non tender, no masses Extremities are nonedematous and both pedal pulses are present Neurologic exam is alert and oriented, no focal loss of strength or sensation Skin is without bruises or rashes Psychologically is without concerns for anxiety or depression Results & Data Results & Data ([facility]) Vital Signs (Past 12 Hours) Vital Signs Temp Pulse Resp BP Pulse Ox 02/07/21 12:30 72 15 137/59 L 97 02/07/21 12:00 68 21 144/57 H 97 02/07/21 11:30 59 L 17 137/66 96 02/07/21 11:00 56 L 19 133/65 95 02/07/21 10:30 55 L 12 131/65 96 02/07/21 10:00 63 16 128/64 96 02/07/21 09:31 67 14 132/53 L 98 02/07/21 09:00 65 23 121/64 96 02/07/21 08:31 98.4 F 79 20 151/59 H 98 02/07/21 08:30 68 14 119/64 98 02/07/21 08:17 77 21 151/59 H 99 Code Status & VTE Plan VTE Prophylaxis Plan VTE Prophylaxis will be ordered: Yes PG Care Time/CCT Total # of Minutes Spent Total Time Spent with Patient: Total time spent is greater than 50% in coordination of care (as documented) at patient's floor/unit and/or counseling patient: Coding Level of Care Code 56158 Initial Inpt Care Lvl 2 Diagnoses Chest pain R07.9 Statin intolerance Z78.9 Hypothyroidism E03.9 RA (rheumatoid arthritis) M06.9 GERD (gastroesophageal reflux disease) K21.9 Depression with anxiety F41.8 DVT prophylaxis Z29.9
[2021-02-07] MEDS ORDERED: ONDANSETRON INJ 2 MG/ML 2 ML VIAL IV PRN (16:26)
[2021-02-07] MEDS ORDERED: ALUMINUM/MAGNESIUM SUSP 30 ML UDC PO PRN (16:26)
[2021-02-07] MEDS ORDERED: DICLOFENAC SOD 1% GEL 100 GM TUBE EXT PRN (16:26)
--- NOTE | 2021-02-07 17:04 | Electrocardiogram Report ---
Test Reason : Blood Pressure : / mmHG Vent. Rate : 073 BPM Atrial Rate : 073 BPM P-R Int : 136 ms QRS Dur : 082 ms QT Int : 394 ms P-R-T Axes : 073 032 035 degrees QTc Int : 434 ms Sinus rhythm with frequent Premature ventricular complexes Otherwise normal ECG When compared with ECG of 20-OCT-2020 19:54, Premature ventricular complexes are now Present Confirmed by Elías Mascorro ([id number]) on 02/07/2021 5:03:35 PM Referred By: REFERRED SELF Confirmed By:Elías Mascorro
[2021-02-07] MEDS ORDERED: traZODone HCL 100 MG TAB PO SCH (21:00)
[2021-02-07] MEDS ORDERED: FOLIC ACID 1 MG TAB PO SCH (21:00)
[2021-02-07] MEDS: FAMOTIDINE 20 MG TAB PO SCH (21:18)
[2021-02-07] MEDS: ACETAMINOPHEN 325 MG TAB PO SCH (21:18)
[2021-02-08 06:27] LABS: BUN Creatinine Ratio 25.3 (10-20); Calcium 8.1 mg/dl (8.5-10.1); Creatinine Clr Calc Pharmacy 74.6 ml/min; Est GFR (African American) 102.2 ml/min; Est GFR (Non-African American) 88.2 ml/min; Magnesium 2.3 mg/dl (1.8-2.4); Potassium 4.3 mmol/L (3.5-5.1)
[2021-02-08] MEDS ORDERED: LEVOTHYROXINE SODIUM 50 MCG TABLET PO SCH (06:30)
[2021-02-08] MEDS: ACETAMINOPHEN 325 MG TAB PO SCH (08:23)
[2021-02-08] MEDS: FAMOTIDINE 20 MG TAB PO SCH (08:24)
[2021-02-08] MEDS ORDERED: CHOLECALCIFEROL 1,000 UNITS 25 MCG TAB PO SCH (09:00)
[2021-02-08] MEDS ORDERED: ESCITALOPRAM OXALATE 20 MG TAB PO SCH (09:00)
[2021-02-08] MEDS ORDERED: EZETIMIBE 10 MG TABLET PO SCH (09:00)
[2021-02-08] MEDS ORDERED: MULTIVITAMIN TAB PO SCH (09:00)
[2021-02-08] MEDS ORDERED: ASPIRIN 81 MG ECTAB PO SCH (09:00)
[2021-02-08] MEDS ORDERED: CYANOCOBALAMIN 500 MCG TABLET (VITAMIN B-12) PO SCH (09:00)
[2021-02-08] MEDS ORDERED: CLOPIDOGREL BISULFATE 75 MG TAB PO SCH (09:00)
--- NOTE | 2021-02-08 09:07 | Cardiology Progress Note ---
Date of Service February 08, 2021 Assessment & Plan (1) Atypical chest pain: Plan: As noted, undetectable Troponin I x 3, Non ischemic EKGs. Chest discomfort has been right sided with rest, rather than the exertional chest pressure that prompted her LAD stent 07/2020. Had non ischemic nuclear stress on 09/20/20 as outpatient. Has a long of social stressors with daughter in process of reassignment to an [employer] post at the [employer]. I discussed options with patient. I feel it would be premature to proceed with cardiac catheterization. We discussed options of stress testing, or discharge with ongoing observation and medical therapy. As noted, symptoms are different in character than those that prompted her previous LAD interventions. Through a process of shared decision making, pt and I have agreed to proceed with discharge, with thoughts that her workup up performed in the last 24 hrs is reassuring. I have messaged our office to request follow up appointment within 1 month. (2) Status post insertion of drug-eluting stent into left anterior descending (LAD) artery: Plan: Continue TIN PLATER treatment with ASA, clopidogrel. Intolerant of beta susana. (3) PVC (premature ventricular contraction): Plan: History of frequent PVCs. Normal LVEF. Did not tolerate metoprolol , several dosing strategies attempted previously. Continue to observe. (4) Statin intolerance: Plan: Continue outpatient PCSK9 inhibitor. (5) RA (rheumatoid arthritis): Plan: I spoke to cardiac rehab. Will modify her exercise to limit impact, stational bike as compared to treadmill or elyptical. Admission and Anticipated Discharge Date Admission Date: February 07, 2021 Subjective Mrs Card is seen in cardiology follow up. Patient well known to the undersigned. Feels well overnight last night and this am without chest discomfort. Troponin I has been undetectable x 3. Serial EKG tracing withoug repolarization changes. Review of Systems Psychiatric: + anxiety Physical Exam Physical Exam: Temp Pulse Resp BP Pulse Ox 36.7 C 57 L 28 H 129/56 L 96 02/08/21 05:10 02/08/21 06:30 02/08/21 06:30 02/08/21 05:50 02/08/21 06:30 Constitutional: WD/WN, vitals as above Respiratory: normal respiratory effort, lungs clear to auscultation Gastrointestinal (Abdomen): normal bowel sounds, soft, nontender, no hepatosplenomegaly Musculoskeletal: arthritis aches and pains with h/o RA, and fibromyalgia Neurologic: PERRL, EOMI, accommodation nl, no face palsy, no dysarthria Results & Data ([facility]) Vital Signs (Past 12 Hours) Vital Signs Temp Pulse Resp BP Pulse Ox 02/08/21 06:30 57 L 28 H 96 02/08/21 06:23 69 20 96 02/08/21 05:50 60 14 129/56 L 96 02/08/21 05:23 58 L 22 126/44 L 96 02/08/21 05:10 36.7 C 02/08/21 04:21 58 L 14 90/39 L 95 02/08/21 03:22 58 L 19 92/37 L 95 02/08/21 02:22 61 22 114/61 95 02/08/21 01:21 61 22 117/47 L 95 02/08/21 00:21 71 25 H 114/52 L 97 02/08/21 00:20 36.6 C 02/07/21 23:21 63 15 103/38 L 97 02/07/21 22:50 71 17 110/48 L 96 02/07/21 22:21 61 16 93/43 L 96 02/07/21 21:22 65 16 129/57 L 98 Laboratory Results Cardiac Enzymes 02/07/21 02/07/21 02/08/21 Range/Units 08:56 16:45 00:21 AST 18 (15-37) U/L Troponin I < 0.015 < 0.015 < 0.015 (0-0.045) ng/ml CBC 02/07/21 Range/Units 08:56 WBC 7.60 (4.8-10.8) K/uL RBC 3.64 L (4.2-5.4) M/uL Hgb 11.9 L (12.0-16.0) g/dL Hct 36.0 L (37-47) % Plt Count 333 (130-400) K/uL Neut # (Auto) 3.68 (1.4-6.5) K/uL Lymph # (Auto) 3.00 (1.2-3.4) K/uL [place] # (Auto) 0.80 H (0.11-0.59) K/uL Eos # (Auto) 0.10 (0-0.5) K/uL Baso # (Auto) 0.01 (0-0.2) K/uL Comprehensive Metabolic Panel 02/07/21 02/08/21 Range/Units 08:56 05:28 Sodium 141 141 (136-145) mmol/L Potassium 4.2 4.3 (3.5-5.1) mmol/L Chloride 111 H 110 H (98-107) mmol/L Carbon Dioxide 25 28 (21-32) mmol/L BUN 21 H 17 (7-18) mg/dl Creatinine 0.73 0.69 (0.6-1.2) mg/dl Glucose 83 81 (70-99) mg/dl Calcium 8.5 8.1 L (8.5-10.1) mg/dl AST 18 (15-37) U/L ALT 27 (12-78) U/L Alkaline Phosphatase 70 (45-117) U/L Total Protein 6.2 L (6.4-8.2) gm/dl Albumin 3.2 L (3.4-5.0) gm/dl Intake and Output 02/07/21 02/08/21 02/08/21 22:59 06:59 14:59 Output Total 450 / 1150 700 / 1150 Balance -450 / -1150 -700 / -1150 Output: Urine 450 / 1150 700 / 1150 Other: Weight 60 kg 62.3 kg Weight Measurement Method Estimated by Patient Built in [facility]
--- NOTE | 2021-02-08 17:25 | Discharge Summary ---
Date of Service February 08, 2021 Principal Diagnosis Chest painappears noncardiac. Most likely stress-induced. Discharge Exam In general she is awake alert oriented, pleasant no distress. HEENT normocephalic atraumatic mucous membranes moist. Breathing unlabored no accessory muscle use good effort. Skin shows no rashes no pallor or icterus. Neuro without focal deficits. She is walking in the halls without any evidence of dyspnea or distress. Discharge Data Allergies Allergy/AdvReac Type Severity Reaction Status Date / Time codeine Allergy Intermediate RASH Verified 02/07/21 10:46 Penicillins Allergy Intermediate RASH Verified 02/07/21 10:46 Sulfa (Sulfonamide Allergy Intermediate RASH Verified 02/07/21 10:46 Antibiotics) ticagrelor [From Brilinta] AdvReac Intermediate Difficulty Verified 02/07/21 10:46 Breathing [id number] Reductase AdvReac Mild Muscle Pain Verified 02/07/21 10:46 Inhibitor carvedilol [From Coreg] AdvReac Headache, Verified 02/07/21 10:46 blurred vision isosorbide AdvReac Headache, Verified 02/07/21 10:46 blurred vision Consultations 02/07/21 11:30 ED Decision to Admit Routine 02/07/21 16:26 Consult Cardiology Routine Hospital Course (1) Chest pain: Patient's previously had coronary interventions with in-stent thrombosis and July 2020. She does relate that her symptoms are different than before, and she was under a lot of stress this weekend. She suspects that the pain is stress related. Given her coronary disease, it does seem unlikely, given that she has not had an OH, that she would have had any unstable angina since she only had 1 dominant stenosis which has been stentedI would think stent reocclusion would be about the only mechanism by which she could have actual angina right now, and that would almost certainly come with elevated troponins. Stable for home. Meds unchanged. Input from cardiology as below: (1) Atypical chest pain: Plan: As noted, undetectable Troponin I x 3, Non ischemic EKGs. Chest discomfort has been right sided with rest, rather than the exertional chest pressure that prompted her LAD stent 07/2020. Had non ischemic nuclear stress on 09/20/20 as outpatient. Has a long of social stressors with daughter in process of reassignment to an [employer] post at [employer]. I discussed options with patient. I feel it would be premature to proceed with cardiac catheterization. We discussed options of stress testing, or discharge with ongoing observation and medical therapy. As noted, symptoms are different in character than those that prompted her previous LAD interventions. Through a process of shared decision making, pt and I have agreed to proceed with discharge, with thoughts that her workup up performed in the last 24 hrs is reassuring. I have messaged our office to request follow up appointment within 1 month. Total Time Total Time Spent Total Time Spent (In Minutes): <30 Discharge Plan Discharge Items Patient Disposition: Home - Self-Care Reason For Visit: EXERTIONAL CHEST PAIN Discharge Diagnosis: chest pain - likely stress/fatigue related; does not appear cardiac Activity: Resume your previous activity Non-emergency contact: Primary Care Provider and [facility] [facility] Call non-emergency contact if: you have any medication questions and your symptoms worsen Follow-up/Referrals: Shaun Sarabia, [Primary Care Provider] - 02/15/21 11:30 am (Please follow up with Dr. Sarabia on 02/15/21 at 11:30 am. Please arrive to the office at 11:15 am for your appointment. If you are unable to keep this appointment, please call the office to reschedule at [phone].) Diet: Heart Healthy Addtl Attending Provider Instructions: as we discussed, stress is one of the closest mimickers to cardiac chest pain - but fortunately you're workup looks really reassuring from a cardiac standpoint Pending Studies at Discharge: No Stand-Alone Forms: My [facility] [employer], Smoking Cessation Medications and DC Order Prescriptions: Continued levothyroxine 50 mcg tablet 50 mcg PO DAILY Qty: 90 RF: 3 clopidogrel 75 mg tablet 75 mg PO QAM Qty: 90 RF: 3 ezetimibe [Zetia] 10 mg tablet 10 mg PO DAILY RF: 0 Repatha Syringe 140 mg/mL syringe 140 mg subcut .every 2 weeks RF: 0 nitroglycerin 0.4 mg tablet, sublingual 0.4 mg Sublingual DIRECTED PRN (Reason: chest pain) Qty: 25 RF: 1 trazodone 50 mg tablet 100 mg PO HS Qty: 1 RF: 0 cyanocobalamin (vitamin B-12) [Vitamin B-12] 1,000 mcg Tablet 2,000 mcg PO DAILY RF: 0 cholecalciferol (vitamin D3) [Vitamin D3] 1,000 unit Tablet,Chewable 2,000 unit PO DAILY RF: 0 multivitamin Tablet 1 tab PO DAILY RF: 0 methotrexate sodium 2.5 mg Tablet 10 mg PO WK RF: 0 folic acid 1 mg Tablet 1 mg PO HS RF: 0 diclofenac sodium [Voltaren] 1 % Gel 2 g TOPICAL QID PRN (Reason: Pain) RF: 0 aspirin [Aspirin Low Dose] 81 mg tablet,delayed release (DR/EC) 81 mg PO DAILY Qty: 90 RF: 3 ascorbic acid (vitamin C) 500 mg Tablet,Chewable 500 mg PO DAILY RF: 0 acetaminophen [Tylenol Arthritis Pain] 650 mg Tablet Extended Release 1,300 mg PO Q12H RF: 0 escitalopram oxalate [Lexapro] 10 mg tablet 20 mg PO QAM RF: 0 Discharge Orders: Discharge Order (Routine); Ordered 02/08/21 Ordered By: Gildardo Apple/Other Patient Handouts: Symptoms of a Heart Attack, Communicating About Pain Admission Data Admit Date/Time: 02/07/21 12:31 Attending Provider: Gildardo Mcgowan Admit Provider: Macario Gonzalez Primary Care Provider: Shaun Sarabia Other Providers: Macario Gonzalez ; Randall Reis Other Interventions: Discharge Summary Assessment (RN) Last Done: 02/08/21 09:44 Coding Level of Care Code 97727 OBS Care - Discharge Diagnoses Chest pain R07.9
--- NOTE | 2021-02-09 05:35 | Electrocardiogram Report ---
Test Reason : Blood Pressure : / mmHG Vent. Rate : 066 BPM Atrial Rate : 066 BPM P-R Int : 146 ms QRS Dur : 082 ms QT Int : 420 ms P-R-T Axes : 067 031 026 degrees QTc Int : 440 ms Sinus rhythm with occasional Premature ventricular complexes Otherwise normal ECG When compared with ECG of 07-FEB-2021 08:22, No significant change was found Confirmed by Chance Woodward ([id number]) on 02/09/2021 5:34:40 AM Referred By: REFERRED SELF Confirmed By:Chance Woodward
--- NOTE | 2021-02-09 05:40 | Electrocardiogram Report ---
Test Reason : Blood Pressure : / mmHG Vent. Rate : 067 BPM Atrial Rate : 067 BPM P-R Int : 148 ms QRS Dur : 082 ms QT Int : 444 ms P-R-T Axes : 070 027 028 degrees QTc Int : 469 ms Sinus rhythm with frequent Premature ventricular complexes Otherwise normal ECG When compared with ECG of 07-FEB-2021 19:35, No significant change was found Confirmed by Chance Woodward ([id number]) on 02/09/2021 5:39:33 AM Referred By: REFERRED SELF Confirmed By:Chance Woodward
--- NOTE | 2021-02-09 05:51 | Electrocardiogram Report ---
Test Reason : Blood Pressure : / mmHG Vent. Rate : 059 BPM Atrial Rate : 059 BPM P-R Int : 152 ms QRS Dur : 082 ms QT Int : 450 ms P-R-T Axes : 070 031 029 degrees QTc Int : 445 ms Sinus bradycardia Otherwise normal ECG When compared with ECG of 07-FEB-2021 23:47, Premature ventricular complexes are no longer Present Confirmed by Chance Woodward ([id number]) on 02/09/2021 5:50:58 AM Referred By: REFERRED SELF Confirmed By:Chance Woodward
== END 2021-02-08 10:20 | disposition home or self-care (01) ==
LOC: ED 08:13 → 1E 08:13 → SUATTDRO 12:31 → 1E 14:00

== ENCOUNTER 2024-05-28 16:13 | Inpatient (IN) ==
[2024-05-28 16:52] LABS: Basophils # (auto) 0.03 K/uL (0.00-0.20); Basophils % (auto) 0.4 %; Eosinophils # (auto) 0.08 K/uL (0.00-0.50); Eosinophils % (auto) 1.2 %; Hematocrit (blood only) 34.5 % (37.0-47.0); Hemoglobin 11.7 g/dl (12.0-16.0); Immature Granulocytes # (auto) 0.02 K/uL (0.01-0.20); Immature Granulocytes % (auto) 0.3 %; Lymphocytes # (auto) 3.13 K/uL (1.20-3.40); Lymphocytes % (auto) 45.2 %; Mean Corpuscular Hgb Conc 33.9 g/dL (32.0-36.0); Mean Corpuscular Volume 94.3 fL (80.0-100.0); Mean Platelet Volume 9.6 fL (9.4-12.4); Monocytes # (auto) 0.59 K/uL (0.11-0.59); Monocytes % (auto) 8.5 %; Neutrophils # (auto) 3.08 K/uL (1.40-6.50); Neutrophils % (auto) 44.4 %; Platelet Count 297 K/uL (130-400); RDW Coefficient of Variation 13.1 % (11.5-14.5); RDW Standard Deviation 44.5 fL (36.4-46.3); Red Blood Count 3.66 M/uL (4.20-5.40); White Blood Count 6.93 K/ul (4.8-10.8)
--- NOTE | 2024-05-28 16:56 | XRay Report ---
EXAM: Radiograph of the Chest 1 View INDICATION: Chest pain. TECHNIQUE: Frontal view of the chest. COMPARISON: 02/07/2021 FINDINGS: Lungs and pleural spaces: No consolidation or pulmonary edema. No pleural effusion or pneumothorax. Heart: Shape and configuration within normal limits allowing for technique. Mediastinum: Normal contour. Bones/joints: No fracture, erosion or dislocation. Soft tissues: No abnormality noted. No radiopaque foreign body noted. Vasculature: Stable ectatic aorta. Upper abdomen: No abnormality noted. IMPRESSION: No acute cardiopulmonary disease. ACT 112: Negative or not required by law. Electronically signed by Jessica Sood 05-28-2024 4:56 PM
[2024-05-28 17:04] LABS: Alanine Aminotransferase 13 U/L (7-52); Albumin Globulin Ratio 1.5 (0.9-2); Alkaline Phosphatase 61 U/L (34-104); Anion Gap 5 (3-11); Aspartate Aminotransferase 18 U/L (13-39); BUN Creatinine Ratio 34.1 (10-20); Bilirubin,Total 0.2 mg/dl (0.2-1.0); Blood Urea Nitrogen 30 mg/dl (6-23); Calcium 8.9 mg/dl (8.6-10.3); Carbon Dioxide 29 mmol/L (21-32); Chloride 105 mmol/L (98-107); Creatinine Clr Calc Pharmacy 48.6 ml/min; Globulin 2.7 gm/dl (2.5-4.0); Glucose 117 mg/dl (70-99(Fasting)); Potassium 4.1 mmol/L (3.5-5.1); Sodium 139 mmol/L (136-145); Total Protein 6.7 gm/dl (6.0-8.3)
[2024-05-28 17:09] LABS: Troponin I High Sensitivity < 2.3 pg/ml (0-14)
[2024-05-28 17:14] LABS: INR 0.9 (0.9-1.1); Partial Thromboplastin Ratio 0.9; Partial Thromboplastin Time 25 Seconds (21-31); Prothrombin Time 10.3 Seconds (9.0-12.0)
--- NOTE | 2024-05-28 17:41 | History & Physical Report ---
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, will begin Heparin drip on admission - Trend trop overnight - consult cardiology (follows with [facility] cardiology) (2) CAD (coronary artery disease): Plan: history of previous NSTEMI s/p cardiac cath with PCI to LAD 08/23/2018 Cardiac cath 07/2020 resulting in new MARTITA to proximal to mid LAD - negative nuclear stress testing 08/2020, 10/2021, and 08/2023 - noted to be previously intolerant to isosorbide mononitrate, amlodipine, beta- blockers - continue ASA and Plavix (3) HLD (hyperlipidemia): Plan: - history of statin intolerance, on - due to take on Saturday 06/02 - lipid panel 04/14/24 WNL (4) RA (rheumatoid arthritis): Plan: takes methotrexate 15 mg on Saturdays - ordered for 05/29 (3 2.5mg tabs with lunch and 3 with dinner) - continue Voltaren gel as needed Plan Chronic stable diagnoses: Hypothyroidism - continue levothyroxine A/D - continue escitalopram and trazodone Fibromyalgia VTE ppx: heparin Diet: heart healthy Code status: Full Dispo: PCU with unstable angina Admission and Anticipated Discharge Date Admission Date: 05/28/24 History of Present Illness Chief Complaint: chest pain Primary Care Provider: Shaun Sarabia DO Patient is a 73-year-old female with past medical history of NSTEMI s/p cardiac cath with PCI 08/2018 and 07/2020 to LAD, CAD, hyperlipidemia, frequent PVCs, rheumatoid arthritis, GERD, hypothyroidism. She is seen today due to exertional angina, chest pain x multiple weeks when stressed or on exertion that is relieved by nitro. She was also given Ativan in the ED that relieved her chest pain. the patient stated that for the past few weeks she gets tired when doing chores around the house, she tries to keep going and then develops chest pain. She stated that this is relieved with rest and with nitro. In the past when she would take nitro for chest pain, it would relieve it for weeks, but this time it has come back within hours. She denies other symptoms associated with chest pain, denies diaphoresis, dyspnea, dizziness. She stated she does have chronic dizziness due to balance issues and has going to start going to PT right before [place]. She stated this chest pain feels different than her fibromyalgia, she can tell the difference easily. It does feel similar to when she needed stents in the past, but is not as severe. When she needed stents in the past she had pain that radiated into her arms, denies radiation with this chest pain. She also has a history of GERD that has been well-controlled with diet. She has taken Tums the past few days for suspicion that the pain was due to reflux, Tums did not relieve the pain. Patient denies fever, chills, headache, dizziness, lightheadedness, dyspnea, dyspnea on exertion, abdominal pain, nausea, vomiting, numbness, tingling. Patient's updated at bedside. Allergies Allergy/AdvReac Type Severity Reaction Status Date / Time codeine Allergy Intermediate RASH Verified 04/14/24 08:55 doxycycline Allergy Intermediate Rash Verified 04/14/24 08:55 Penicillins Allergy Intermediate RASH Verified 04/14/24 08:55 Sulfa (Sulfonamide Allergy Intermediate RASH Verified 04/14/24 08:55 Antibiotics) ticagrelor [From Brilinta] AdvReac Intermediate Difficulty Verified 04/14/24 08:55 Breathing Danfsgc-JEJ-TdX Reductase AdvReac Mild Muscle Pain Verified 04/14/24 08:55 Inhibitor [Bramchq-Awc-Vvw Reductase Inhibitor] carvedilol [From Coreg] AdvReac Headache, Verified 04/14/24 08:55 blurred vision isosorbide AdvReac Headache, Verified 04/14/24 08:55 blurred vision Home Medications Medication Instructions Recorded Confirmed Type aspirin 81 mg tablet,delayed 81 mg PO DAILY #90 tabs 08/25/18 05/28/24 Rx release (Pallavi Low Dose Aspirin) ascorbic acid (vitamin C) 500 mg 500 mg PO .DAILY AT NOON 02/01/19 05/28/24 History chewable tablet cholecalciferol (vitamin D3) 25 2,000 unit PO DAILY 06/14/19 05/28/24 History mcg (1,000 unit) chewable tablet (Vitamin D3) cyanocobalamin (vitamin B-12) 1,000 mcg PO .DAILY AT NOON 06/14/19 05/28/24 History 1,000 mcg tablet (Vitamin B-12) nitroglycerin 0.4 mg sublingual 0.4 mg sublingual DIRECTED PRN 09/27/19 05/28/24 Rx tablet chest pain #25 tabs clopidogrel 75 mg tablet 75 mg PO QAM #90 tabs 03/27/20 05/28/24 Rx evolocumab 140 mg/mL subcutaneous 140 mg subcut .every 2 weeks 12/01/20 05/28/24 History syringe (Repatha Syringe) acetaminophen 650 mg 1,300 mg PO AMHS 10/15/23 05/28/24 History tablet,extended release (Tylenol Arthritis Pain) escitalopram oxalate 20 mg tablet 20 mg PO QAM #90 tabs 10/16/23 05/28/24 Rx ketoconazole 2 % shampoo 1 applic topical Q14D 04/14/24 05/28/24 History folic acid 1 mg tablet 2 mg PO DAILY 05/28/24 05/28/24 History levothyroxine 50 mcg tablet 50 mcg PO DAILYBB 05/28/24 05/28/24 History methotrexate sodium 2.5 mg tablet See Rx Instructions .Route .COMPLEX 05/28/24 05/28/24 History multivitamin with minerals 1 tab PO .DAILY AT NOON 05/28/24 05/28/24 History trazodone 50 mg tablet 75 mg PO HS 05/28/24 05/28/24 History Past Med/Surg History Problem List (Updated 05/28/24 @ 17:48 by Naima Rossi PA-C) Exertional angina Balance problem Neuralgia History of cardiac cath 08/2018 x1 @ [facility] with 1 stent placed Food sensitivity with gastrointestinal symptoms CAD (coronary artery disease) (Chronic) Cardiac Cath with MARTITA placement to proximal to mid LAD 07/25/2020 Palpitations Statin intolerance HLD (hyperlipidemia) RA (rheumatoid arthritis) (Chronic) Fibromyalgia (Chronic) Chronic pain GERD (gastroesophageal reflux disease) MCI (mild cognitive impairment) with memory loss (Chronic) Depression with anxiety (Chronic) Hypothyroidism (Chronic) Insomnia Anemia (Acute) Excessive daytime sleepiness (Acute) Seizure-like activity Chronic cerebral ischemia Cervical radiculopathy Mild decreased amplitude in median nerve on EMG of LUE 07/2018. MRI of cervical spine 06/2019 - Minimal disc bulge at C5-C6 with mild bilateral foraminal narrowing. Otherwise no significant spinal stenosis. Medical History Sinusitis Closed fracture of left distal fibula (03/10/22) Ankle fracture, left UTI symptoms PVC (premature ventricular contraction) Status post insertion of drug-eluting stent into left anterior descending (LAD) artery [place] hx of at age 22 Hypothyroidism Hearing deficit On anticoagulant therapy plavix daily d/t cardiac stent Diverticulosis Pigmented skin lesion Postmenopausal atrophic vaginitis Sleep terror disorder Essential tremor Cerebral vascular disease Vitamin D deficiency Aortic valve insufficiency Carotid artery stenosis NSTEMI (non-ST elevated myocardial infarction) 08/2018--follows with Dr. Mascorro Surgical History History of cataract surgery RT/LEFT History of anesthesia reaction slow to wake up during thumb sx 06/09/2019 at [facility] had a block placed and "hit a nerve" caused severe pain and is in physicial therapy History of section History of right breast biopsy benign History of total hysterectomy with bilateral salpingo-oophorectomy (BSO) Status post right foot surgery "had to shave down bone on my foot" History of thumb surgery left thumb History of root canal procedure History of wisdom tooth extraction Status post excision of neuroma History of abdominal surgery adhesion removal-twice, d/t endometriosis History of colonoscopy (09/13/13) Left sided diverticulosis. Internal hemorrhoids. No biopsies. F/U due 2023. History of esophagogastroduodenoscopy (EGD) (08/14/10) Diagnostic for epigastric pain w/u. Biopsies consistent with mild chronic gastritis. Negative H. pylori. No follow up recommended. History of coronary artery stent placement (~08/2018) 08/2018 Family History Grandfather (Paternal) Acquired amyotrophic lateral sclerosis Sister CREST syndrome Father Pulmonary fibrosis Polyneuropathy Other No family history of adverse response to anesthesia Skin cancer Denies family history of Colon cancer Ovarian cancer Prostate cancer Diabetes Myocardial infarction Breast cancer Lung cancer Colorectal cancer Hypertension Stroke Social History Smoking Status: Never smoker Second Hand Exposure: No; Do You Dip or Chew Tobacco: No; Hx Alcohol Use: No Hx Substance Use: No Preferred Language: Northern Irish Communication Ability: Effective Visual Impairment: Limited Hearing Ability: Use of Hearing Aid 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: No Beliefs That Will Affect Care: None marital status: Current Living Situation: Spouse Current Living Situation Comment: two story home current occupational status: retired current occupation: Retired How many Children do You have: 1 Feels Safe at Home: Yes Childhood Exposure to Second-Hand Smoke: Yes caffeine: Yes Dental Care, Regularly: Yes Physical Activity Frequency: Daily Seatbelt Use: always Sunscreen Use: Yes Assistive Devices: None and Glasses Review of Systems Review of Systems: see HPI Physical Exam Physical Exam: The patient is awake, alert and oriented 3, well developed and well nourished, normocephalic and atraumatic, in no acute distress. Non-toxic appearing. HEENT- EOMI, mucous membranes moist. Hearing grossly intact. Heart-normal S1 and S2. No murmurs, rubs or gallops. Lungs-clear bilaterally, no respiratory distress, no accessory muscle use. Abdomen-normal bowel sounds and soft. No ascites noted. Non-tender. Extremities- no clubbing, cyanosis, or edema. Rheumatologic-normal range of motion. Psychiatric-anxious affect. Results & Data Results & Data Vital Signs (Past 12 Hours) Vital Signs Temp Pulse Resp BP Pulse Ox O2 Del Method 05/28/24 16:18 36.6 C 67 18 135/72 97 Room Air Code Status & VTE Plan Code Status full VTE Prophylaxis Plan VTE Prophylaxis will be ordered: Yes Supervising Physician Co-Signing Physician Notes 73-year-old female with a past medical history of ASCVD, PCI with MARTITA 08/2018, cath 07/2020 with 80% LAD stenosis and in-stent restenosis treated with 1 MARTITA to proximal-mid LAD, negative nuclear stress test 2020, 2021, 2023 who presents with chest pain going up stairs and with stress. Ya seen the bedside with her present. She reports over the last several weeks she has had increasing episodes of chest discomfort. She has noticed these with activity, and have been more frequent in the last 2 weeks. She had not noticed that she had any issues going up 2 flights of stairs in her house, but on further questioning does note that the episodes seemed to happen during or slightly after activity. They have not been associated with sweating or dyspnea. She reports the pain is under her sternum with radiation to the left breast and feels different from her fibromyalgia pain, and just like her prior cardiac pain before she had her LAD stent placed. She reports she had not had any episodes at rest and episodes resolved within a minute or 2 with rest however today and yesterday has had intermittent episodes of pain while at rest around a 6/10. While in the ER when she told that she was going to be admitted she did feel that she had some chest pain with stress which resolved following Ativan. She had an intermittent episode lasting about 1 minute of chest heaviness during hospitalist evaluation which improved prior to administration of nitro but which has been ordered. Due to progressive anginal symptoms and high risk history heparinization was recommended, pt agreeable. Last cardiac catheterization 2020 with 80% stenosis at the mid LAD and in-stent restenosis, received 1 stent inside prior stent. Subsequently with negative stress test 2020, 2021, 2023 Hyperlipidemia with statin intolerance on Repatha She is on DAPT, did take aspirin and Plavix today and received a full dose aspirin in the ER Chest pain Chest pain reproduced with stress and exercise, improved with nitro. Has had some episodes at rest in the last 2 days they have admission. Does have a significant anxiety component, but endorses chest pain similar to her prior NM separate from this and which seems to coincide with exertion. EKG without acute ischemic changes, T wave inversion in 3 previously sinusoidal/low amplitude Troponin normal on admission Did have a 15 to 30 seconds episode of chest discomfort after initial admission which resolved [facility]ology consulted. Reviewed case, agree with heparinization, appreciate care. Nitropaste ordered DAPT continued Patient has been intolerant of beta-blockers in the past Intolerant of isosorbide in the past Agree with management of chronic comorbidities as noted PG Care Time/CCT Total # of Minutes Spent Total Time Spent with Patient: Total time spent is greater than 50% in coordination of care (as documented) at patient's floor/unit and/or counseling patient: Coding Level of Care Code 57448 INT INP/OBS CARE MIN Diagnoses Exertional angina I20.89 CAD (coronary artery disease) I25.10 HLD (hyperlipidemia) E78.5 RA (rheumatoid arthritis) M06.9
[2024-05-28] MEDS: ASPIRIN 81 MG CHEW PO STA (17:53)
[2024-05-28] MEDS: LORazepam 0.5 MG TAB PO STA (17:54)
[2024-05-28] MEDS ORDERED: Heparin IV Adult Wt-Based Low-Dose w/ INITIAL Bolus Protocol IV SCH (18:25)
[2024-05-28] MEDS: HEPARIN SODIUM/DEXTROSE 25,000 UNITS/500 ML BAG IV SCH (19:09)
[2024-05-28] MEDS: HEPARIN SOD (PORCINE) 1000 UNIT/ML IV ONE (19:10)
[2024-05-28] MEDS: NITROGLYCERIN 2% OINTMENT 30GM TUBE EXT SCH (19:11)
[2024-05-28] MEDS ORDERED: DOCUSATE SODIUM 100 MG CAP PO PRN (20:26)
[2024-05-28] MEDS: traZODone HCL 50 MG TAB PO SCH (22:30)
[2024-05-28] MEDS: ACETAMINOPHEN 325 MG TAB PO PRN (23:14)
--- NOTE | 2024-05-28 23:46 | Emergency Department Note ---
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 Seen by Provider: 05/28/24 17:14 History of Present Illness Provider Complaint: chest pain Onset (ago): day(s) 3 Duration: intermittent Onset: during exertion Pain Location: substernal Maximum Pain Intensity: 7 Current Pain Intensity: 0 Quality: + heaviness Relieved By: + nitroglycerin and + rest Exacerbated By: + exertion Context: no recent illness, no recent surgery, no recent immobilization, no recent travel, no trauma/injury, no new medications or no history of DVT/PE Associated symptoms: + dyspnea; no nausea, no vomiting, no syncope, no palpitations, no fever, no cough or no leg swelling Treatments prior to arrival: nitroglycerin Home Medications Medication Instructions Recorded Confirmed Type aspirin 81 mg tablet,delayed 81 mg PO DAILY #90 tabs 08/25/18 05/28/24 Rx release (Pallavi Low Dose Aspirin) ascorbic acid (vitamin C) 500 mg 500 mg PO .DAILY AT NOON 02/01/19 05/28/24 History chewable tablet cholecalciferol (vitamin D3) 25 2,000 unit PO DAILY 06/14/19 05/28/24 History mcg (1,000 unit) chewable tablet (Vitamin D3) cyanocobalamin (vitamin B-12) 1,000 mcg PO .DAILY AT NOON 06/14/19 05/28/24 History 1,000 mcg tablet (Vitamin B-12) nitroglycerin 0.4 mg sublingual 0.4 mg sublingual DIRECTED PRN 09/27/19 05/28/24 Rx tablet chest pain #25 tabs clopidogrel 75 mg tablet 75 mg PO QAM #90 tabs 03/27/20 05/28/24 Rx evolocumab 140 mg/mL subcutaneous 140 mg subcut .every 2 weeks 12/01/20 05/28/24 History syringe (Repatha Syringe) acetaminophen 650 mg 1,300 mg PO AMHS 10/15/23 05/28/24 History tablet,extended release (Tylenol Arthritis Pain) escitalopram oxalate 20 mg tablet 20 mg PO QAM #90 tabs 10/16/23 05/28/24 Rx ketoconazole 2 % shampoo 1 applic topical Q14D 04/14/24 05/28/24 History folic acid 1 mg tablet 2 mg PO DAILY 05/28/24 05/28/24 History levothyroxine 50 mcg tablet 50 mcg PO DAILYBB 05/28/24 05/28/24 History methotrexate sodium 2.5 mg tablet See Rx Instructions .Route .COMPLEX 05/28/24 05/28/24 History multivitamin with minerals 1 tab PO .DAILY AT NOON 05/28/24 05/28/24 History trazodone 50 mg tablet 75 mg PO HS 05/28/24 05/28/24 History Allergies Allergy/AdvReac Type Severity Reaction Status Date / Time codeine Allergy Intermediate RASH Verified 04/14/24 08:55 doxycycline Allergy Intermediate Rash Verified 04/14/24 08:55 Penicillins Allergy Intermediate RASH Verified 04/14/24 08:55 Sulfa (Sulfonamide Allergy Intermediate RASH Verified 04/14/24 08:55 Antibiotics) ticagrelor [From Brilinta] AdvReac Intermediate Difficulty Verified 04/14/24 08:55 Breathing Kvivczc-THX-EkT Reductase AdvReac Mild Muscle Pain Verified 04/14/24 08:55 Inhibitor [Zxaoqyy-Vqm-Pcf Reductase Inhibitor] carvedilol [From Coreg] AdvReac Headache, Verified 04/14/24 08:55 blurred vision isosorbide AdvReac Headache, Verified 04/14/24 08:55 blurred vision Past Med/Surg History Problem List (Updated 05/28/24 @ 23:46 by Nolan Hill MD) Chest pain (Acute) Exertional angina Balance problem Neuralgia History of cardiac cath 08/2018 x1 @ [facility] with 1 stent placed Food sensitivity with gastrointestinal symptoms CAD (coronary artery disease) (Chronic) Cardiac Cath with MARTITA placement to proximal to mid LAD 07/25/2020 Palpitations Statin intolerance HLD (hyperlipidemia) RA (rheumatoid arthritis) (Chronic) Fibromyalgia (Chronic) Chronic pain GERD (gastroesophageal reflux disease) MCI (mild cognitive impairment) with memory loss (Chronic) Depression with anxiety (Chronic) Hypothyroidism (Chronic) Insomnia Anemia (Acute) Excessive daytime sleepiness (Acute) Seizure-like activity Chronic cerebral ischemia Cervical radiculopathy Mild decreased amplitude in median nerve on EMG of LUE 07/2018. MRI of cervical spine 06/2019 - Minimal disc bulge at C5-C6 with mild bilateral foraminal narrowing. Otherwise no significant spinal stenosis. Medical History Sinusitis Closed fracture of left distal fibula (03/10/22) Ankle fracture, left UTI symptoms PVC (premature ventricular contraction) Status post insertion of drug-eluting stent into left anterior descending (LAD) artery [place] hx of at age 22 Hypothyroidism Hearing deficit On anticoagulant therapy plavix daily d/t cardiac stent Diverticulosis Pigmented skin lesion Postmenopausal atrophic vaginitis Sleep terror disorder Essential tremor Cerebral vascular disease Vitamin D deficiency Aortic valve insufficiency Carotid artery stenosis NSTEMI (non-ST elevated myocardial infarction) 08/2018--follows with Dr. Mascorro Surgical History History of cataract surgery RT/LEFT History of anesthesia reaction slow to wake up during thumb sx 06/09/2019 at [facility] had a block placed and "hit a nerve" caused severe pain and is in physicial therapy History of section History of right breast biopsy benign History of total hysterectomy with bilateral salpingo-oophorectomy (BSO) Status post right foot surgery "had to shave down bone on my foot" History of thumb surgery left thumb History of root canal procedure History of wisdom tooth extraction Status post excision of neuroma History of abdominal surgery adhesion removal-twice, d/t endometriosis History of colonoscopy (09/13/13) Left sided diverticulosis. Internal hemorrhoids. No biopsies. F/U due 2023. History of esophagogastroduodenoscopy (EGD) (08/14/10) Diagnostic for epigastric pain w/u. Biopsies consistent with mild chronic gastritis. Negative H. pylori. No follow up recommended. History of coronary artery stent placement (~08/2018) 08/2018 Family History Grandfather (Paternal) Acquired amyotrophic lateral sclerosis Sister CREST syndrome Father Pulmonary fibrosis Polyneuropathy Other No family history of adverse response to anesthesia Skin cancer Denies family history of Colon cancer Ovarian cancer Prostate cancer Diabetes Myocardial infarction Breast cancer Lung cancer Colorectal cancer Hypertension Stroke Social History Smoking Status: Never smoker Second Hand Exposure: No; Do You Dip or Chew Tobacco: No; Hx Alcohol Use: No Hx Substance Use: No Preferred Language: Omani Communication Ability: Effective Visual Impairment: Limited Hearing Ability: Use of Hearing Aid Materials Associate Required: No Beliefs That Will Affect Care: None marital status: Current Living Situation: Spouse Current Living Situation Comment: two story home current occupational status: retired current occupation: Retired How many Children do You have: 1 Other Information That Helps Us Care for You: No Feels Safe at Home: Yes Safety Concerns: Feels Safe At This Time Childhood Exposure to Second-Hand Smoke: Yes caffeine: Yes Dental Care, Regularly: Yes Physical Activity Frequency: Daily Seatbelt Use: always Sunscreen Use: Yes Assistive Devices: None and Glasses Physical Exam Vital Signs Vital Signs - 24 hr 05/28/24 16:18 05/28/24 17:39 05/28/24 17:44 Temperature 36.6 C Temperature Source Temporal Artery Scan Pulse Rate 67 60 58 L Pulse Rate from SpO2 Sensor 59 L Respiratory Rate 18 16 Respiratory Effort / Characteristics Non-Labored Spontaneous Respiratory Depth Normal Respiratory Pattern Regular Blood Pressure 135/72 130/81 Blood Pressure Mean 93 97 Pulse Oximetry 97 97 Oxygen Delivery Method Room Air Sepsis Recent Fever Within 48 Hours No Sepsis New/Unexplained Change in Mental Status N/A Sepsis Action Taken by Nursing No Action Required 05/28/24 18:03 Temperature Temperature Source Pulse Rate 64 Pulse Rate from SpO2 Sensor 60 Respiratory Rate 15 Respiratory Effort / Characteristics Respiratory Depth Respiratory Pattern Blood Pressure 158/67 H Blood Pressure Mean 97 Pulse Oximetry 99 Oxygen Delivery Method Sepsis Recent Fever Within 48 Hours Sepsis New/Unexplained Change in Mental Status Sepsis Action Taken by Nursing Physical Exam GENERAL: oriented to person, place, and time. appears well-developed and well- nourished. HENT: Exam performed. - Head: Normocephalic and atraumatic. EYES: Conjunctivae and EOM are normal. Right eye exhibits no discharge. Left eye exhibits no discharge. No scleral icterus. NECK: Normal range of motion. Neck supple. No JVD present. CV: Normal rate, regular rhythm, normal heart sounds and intact distal pulses. There is no peripheral edema. Palpable radial pulses bue. PULM/CHEST: Effort normal and breath sounds normal. No respiratory distress. No stridor. no wheezes. no rales. ABD: The abdomen is soft. There is no tenderness. NEURO: Motor and sensation grossly intact. SKIN: Skin is warm and dry. He is not diaphoretic. PSYCH: normal mood and affect. Behavior is normal. Judgment and thought content normal. Course Course 1713: The patient was evaluated in room B8. A complete history and physical exam was performed Administered Medications Acetaminophen (Acetaminophen 325 Mg Tab) 650 mg PO Q4H PRN PRN Reason: Pain or Fever Stop: 06/27/24 20:25 Last Admin: 05/28/24 23:14 Dose: 650 mg Documented By: SHAI Heparin Sodium/Dextrose (Heparin Sodium/Dextrose) 25,000 units in 500 mls @ 13 mls/hr IV .Q24H TITO; Protocol Stop: 06/27/24 18:29 Last Titration: 05/28/24 21:46 Dose: 650 units/hr, 13 mls/hr Documented By: SHAI Co-signed By: MONA Admin: 05/28/24 19:09 Dose: 650 units/hr, 13 mls/hr Documented By: BRYCE Co-signed By: CHRIS Nitroglycerin (Nitroglycerin 2% Ointment 30gm Tube) 0.5 inch EXT Q6H TITO Stop: 06/27/24 18:14 Last Admin: 05/28/24 23:14 Dose: 0.5 inch Documented By: Admin: 05/28/24 19:11 Dose: 0.5 inch Documented By: BRYCE Trazodone HCl (Trazodone Hcl 50 Mg Tab) 75 mg PO HS TITO Stop: 06/27/24 20:59 Last Admin: 05/28/24 22:30 Dose: 75 mg Documented By: SHAI Discontinued Medications Aspirin (Aspirin 81 Mg Chew) 324 mg PO NOW STA Stop: 05/28/24 17:29 Last Admin: 05/28/24 17:53 Dose: 324 mg Documented By: CHRIS Heparin Sodium (Porcine) (Heparin Sod (Porcine) 1000 Unit/Ml) 3,000 units IV NOW ONE Stop: 05/28/24 18:28 Last Admin: 05/28/24 19:10 Dose: 3,000 units Documented By: BRYCE Co-signed By: CHRIS Lorazepam (Lorazepam 0.5 Mg Tab) 0.5 mg PO NOW STA Stop: 05/28/24 17:29 Last Admin: 05/28/24 17:54 Dose: 0.5 mg Documented By: CHRIS Medical Decision Making Laboratory Data Attestation: I reviewed the patient's lab results. 05/28/24 16:30 05/28/24 16:30 Labs: Lab Results 05/28/24 Range/Units 16:30 WBC 6.93 (4.8-10.8) K/ul RBC 3.66 L (4.20-5.40) M/uL Hgb 11.7 L (12.0-16.0) g/dl Hct 34.5 L (37.0-47.0) % MCV 94.3 (80.0-100.0) fL MCH 32.0 (25.0-34.0) pg MCHC 33.9 (32.0-36.0) g/dL RDW Std Deviation 44.5 (36.4-46.3) fL RDW Coeff of Rashard 13.1 (11.5-14.5) % Plt Count 297 (130-400) K/uL MPV 9.6 (9.4-12.4) fL Immature Gran % (Auto) 0.3 % Neut % (Auto) 44.4 % Lymph % (Auto) 45.2 % Latimer % (Auto) 8.5 % Eos % (Auto) 1.2 % Baso % (Auto) 0.4 % Neut # (Auto) 3.08 (1.40-6.50) K/uL Lymph # (Auto) 3.13 (1.20-3.40) K/uL Latimer # (Auto) 0.59 (0.11-0.59) K/uL Eos # (Auto) 0.08 (0.00-0.50) K/uL Baso # (Auto) 0.03 (0.00-0.20) K/uL Immature Gran # (Auto) 0.02 (0.01-0.20) K/uL PT 10.3 (9.0-12.0) Seconds INR 0.9 (0.9-1.1) APTT 25 (21-31) Seconds PTT Ratio 0.9 Sodium 139 (136-145) mmol/L Potassium 4.1 (3.5-5.1) mmol/L Chloride 105 (98-107) mmol/L Carbon Dioxide 29 (21-32) mmol/L Anion Gap 5 (3-11) BUN 30 H (6-23) mg/dl Creatinine 0.88 (0.6-1.2) mg/dl Est Cr Clr Drug Dosing 48.6 ml/min eGFR 69.35 BUN/Creatinine Ratio 34.1 H (10-20) Glucose 117 H (70-99(Fasting)) mg/dl Calcium 8.9 (8.6-10.3) mg/dl Total Bilirubin 0.2 (0.2-1.0) mg/dl AST 18 (13-39) U/L ALT 13 (7-52) U/L Alkaline Phosphatase 61 (34-104) U/L Troponin I High Sens < 2.3 (0-14) pg/ml Total Protein 6.7 (6.0-8.3) gm/dl Albumin 4.0 (3.4-5.0) gm/dl Globulin 2.7 (2.5-4.0) gm/dl Albumin/Globulin Ratio 1.5 (0.9-2) Imaging Data Chest x-ray: Attestation: I personally reviewed and interpreted this imaging study as follows: My impression: Chest x-ray negative. Airway clear. No pneumothorax. No consolidation. No cardiomegaly or cephalization.. No free air under the diaphragm. No fractures of the skeletal structures. Radiologist's impression: Chest X-Ray 05/28/24 16:21 EXAM: Radiograph of the Chest 1 View INDICATION: Chest pain. TECHNIQUE: Frontal view of the chest. COMPARISON: 02/07/2021 FINDINGS: Lungs and pleural spaces: No consolidation or pulmonary edema. No pleural effusion or pneumothorax. Heart: Shape and configuration within normal limits allowing for technique. Mediastinum: Normal contour. Bones/joints: No fracture, erosion or dislocation. Soft tissues: No abnormality noted. No radiopaque foreign body noted. Vasculature: Stable ectatic aorta. Upper abdomen: No abnormality noted. IMPRESSION: No acute cardiopulmonary disease. ACT 112: Negative or not required by law. Electronically signed by Jessica Sood 05-28-2024 4:56 PM ECG Data Attestation: I personally reviewed and interpreted this ECG as follows: Indication: chest pain Rate (beats per minute): 63 Rhythm: normal sinus Findings: no ST depression, no ST elevation or no prolonged QT MDM Narrative Cardiac monitoring: An order was placed for continuous cardiac monitoring. The monitor shows a rate of 60 with sinus rhythm interpreted by me Patient was seen during a time of extreme volume and extreme acuity. Nursing triage protocols were initiated labs and imaging was conducted by protocol in the triage area. Labs and imaging unremarkable. Patient will be admitted to the [facility] team for chest pain rule out ACS. 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
[2024-05-28] MEDS: FOLIC ACID 1 MG TAB PO SCH (23:47)
[2024-05-29] MEDS: LEVOTHYROXINE SODIUM 50 MCG TABLET PO SCH (06:22)
[2024-05-29 08:23] LABS: Basophils # (auto) 0.04 K/uL (0.00-0.20); Basophils % (auto) 0.7 %; Eosinophils # (auto) 0.08 K/uL (0.00-0.50); Eosinophils % (auto) 1.3 %; Hematocrit (blood only) 32.6 % (37.0-47.0); Immature Granulocytes # (auto) 0.01 K/uL (0.01-0.20); Immature Granulocytes % (auto) 0.2 %; Lymphocytes # (auto) 2.95 K/uL (1.20-3.40); Lymphocytes % (auto) 48.8 %; Mean Corpuscular Hemoglobin 31.9 pg (25.0-34.0); Mean Corpuscular Hgb Conc 33.7 g/dL (32.0-36.0); Mean Corpuscular Volume 94.5 fL (80.0-100.0); Mean Platelet Volume 9.7 fL (9.4-12.4); Monocytes # (auto) 0.46 K/uL (0.11-0.59); Monocytes % (auto) 7.6 %; Neutrophils # (auto) 2.51 K/uL (1.40-6.50); Neutrophils % (auto) 41.4 %; Platelet Count 263 K/uL (130-400); RDW Coefficient of Variation 13.1 % (11.5-14.5); RDW Standard Deviation 44.8 fL (36.4-46.3); Red Blood Count 3.45 M/uL (4.20-5.40); White Blood Count 6.05 K/ul (4.8-10.8)
[2024-05-29 08:40] LABS: BUN Creatinine Ratio 37.5 (10-20); Calcium 8.7 mg/dl (8.6-10.3); Creatinine Clr Calc Pharmacy 60.1 ml/min; Potassium 3.9 mmol/L (3.5-5.1)
--- NOTE | 2024-05-29 08:47 | Electrocardiogram Report ---
Test Reason : Blood Pressure : */* mmHG Vent. Rate : 63 BPM Atrial Rate : 63 BPM P-R Int : 152 ms QRS Dur : 76 ms QT Int : 418 ms P-R-T Axes : 60 18 8 degrees QTcB Int : 427 ms Normal sinus rhythm Normal ECG When compared with ECG of 08-Feb-2021 06:41, No significant change was found Confirmed by Aron Hall ([id number]) on 05/29/2024 8:47:33 AM Referred By: Winston Templeton Confirmed By: Aron Hall
[2024-05-29] MEDS ORDERED: FOLIC ACID 1 MG TAB PO SCH (09:00)
[2024-05-29] MEDS ORDERED: NON-FORMULARY MEDICATION (Acetaminophen [Tylenol Arthritis Pain] 650 mg tablet extended re PO SCH (09:00)
[2024-05-29] MEDS: ESCITALOPRAM OXALATE 20 MG TAB PO SCH (09:01)
[2024-05-29] MEDS: CHOLECALCIFEROL 25 MCG (1000 UNITS) TAB PO SCH (09:01)
[2024-05-29] MEDS: ACETAMINOPHEN 500 MG TAB PO SCH (09:01)
[2024-05-29] MEDS: ASPIRIN 81 MG ECTAB PO SCH (09:01)
[2024-05-29] MEDS: CLOPIDOGREL BISULFATE 75 MG TAB PO SCH (09:02)
--- NOTE | 2024-05-29 09:50 | Hospitalist Progress Note ---
Date of Service May 29, 2024 Assessment & Plan (1) Chest pain: (2) Exertional angina: (3) History of cardiac cath: (4) CAD (coronary artery disease): (5) HLD (hyperlipidemia): (6) RA (rheumatoid arthritis): Plan 73-year-old female with a past medical history of ASCVD, PCI with MARTITA 08/2018, cath 07/2020 with 80% LAD stenosis and in-stent restenosis treated with 1 MARTITA to proximal-mid LAD, negative nuclear stress test 2020, 2021, 2023 who presents with chest pain going up stairs and with stress. Chest pain: - Exertional angina - patient with chest pain on exertion and when stressed x multiple weeks; relieved by Nitro - feels similar to previous when need for stents although not as severe - Last cardiac catheterization 2020 with 80% stenosis at the mid LAD and in- stent restenosis, received 1 stent inside prior stent - troponin negative (<2.3), CXR negative, VSS stable - EKG NSR without ischemic changes - Nitrobid Q6H prn - Cardiology consulted: diagnostic coronary angiographyon Friday - On heparin drip - DAPT continue CAD (coronary artery disease): -history of previous NSTEMI s/p cardiac cath with PCI to LAD 08/23/2018 - Cardiac cath 07/2020 resulting in new MARTITA to proximal to mid LAD - negative nuclear stress testing 08/2020, 10/2021, and 08/2023 - noted to be previously intolerant to isosorbide mononitrate, amlodipine, beta- blockers - continue ASA and Plavix HLD (hyperlipidemia): - history of statin intolerance, on - due to take on Saturday 06/02 - lipid panel 04/14/24 WNL RA (rheumatoid arthritis): - takes methotrexate 15 mg on Saturdays - ordered for 05/29 (3 2.5mg tabs with lunch and 3 with dinner) - continue Voltaren gel as needed - Tylenol 1,000 mg q8hr (Tylenol arthritis not available) Chronic stable diagnoses: Hypothyroidism - continue levothyroxine A/D - continue escitalopram and trazodone Fibromyalgia: stable VTE ppx: heparin Diet: heart healthy Code status: Full Dispo: PCU with unstable angina Admission and Anticipated Discharge Date Admission Date: May 28, 2024 Supervising Physician Co-Signing Physician Notes I personally examined the patient and verified all rizo points of history and exam, discussed case, and agree with decision making with Dr Steffen Ibarra feeling okay at rest. For cath Friday. Vitals noted, in general she is awake and alert pleasant no distress. HEENT normocephalic atraumatic mucous membranes moist. Breathing unlabored no accessory muscle use good effort. Skin without rashes pallor or icterus. Neuro without focal deficits. Labs and EKG reviewed. Coronary artery disease/anginacurrently chest pain-free, troponins negative, EKG nonacute. Symptoms quite concerning for coronary disease. For heart cath on Friday. Mine Pandya was seen this morning, in NAD. Refers chest pain is resolved. Denied any shortness or breath or palpitations. Tylenol was schedule for her arthritis. plan for label rewinder on Friday. Review of Systems Review of Systems: All systems reviewed & are unremarkable except as noted in HPI & below Physical Exam Constitutional: WD/WN, vitals as above well developed, well nourished and + well hydrated; no acute distress Eyes: PERRL, conjunctivae normal, anicteric sclerae Respiratory: normal respiratory effort, lungs clear to auscultation Cardiovascular: RRR, no murmur, no edema Extremities: no edema Gastrointestinal (Abdomen): normal bowel sounds, soft, nontender, no hepatosplenomegaly Skin: no rashes, warm and dry Results & Data Results & Data Vital Signs (Past 12 Hours) Vital Signs Temp Pulse Pulse Resp BP BP Pulse Ox 05/29/24 07:37 36.5 C 58 L 18 106/68 96 05/29/24 06:00 62 05/29/24 03:02 36.6 C 67 16 134/74 95 05/28/24 23:50 36.5 C 69 20 120/73 96 05/28/24 23:00 54 L 05/28/24 22:30 05/28/24 21:45 36.9 C 56 L 20 139/70 96 O2 Del Method 05/29/24 07:37 Room Air 05/29/24 06:00 05/29/24 03:02 Room Air 05/28/24 23:50 Room Air 05/28/24 23:00 05/28/24 22:30 Room Air 05/28/24 21:45 Room Air Resident Activity Tracking Resident Involvement: Resident Care Provided Care Provided: Adult Hospital Medicine (1) Chest pain Chest pain type: unspecified Qualified Code(s): R07.9 - Chest pain, unspecified
--- NOTE | 2024-05-29 10:11 | Cardiology Consultation ---
Date of Consultation May 29, 2024 Assessment & Plan (1) Chest pain: (2) Exertional angina: (3) CAD (coronary artery disease): (4) HLD (hyperlipidemia): (5) RA (rheumatoid arthritis): Plan Patient is a 73-year-old female with known coronary disease prior stable chronic angina pectoris who presents with symptoms concerning for accelerating angina with frequent nitroglycerin use recently with relief of symptoms. Has undergone prior stress testing recently August 2023 study not notable for ischemia at that time. Symptoms have changed per patient's description. EKGs and cardiac enzymes without injury Recommendations: Discussed findings in detail with the patient do not feel additional stress testing would provide adequate reassurance with ongoing anginal pattern. Will recommend diagnostic coronary angiography and tentatively scheduled for Friday Continue IV heparin History of Present Illness Reason for Consultation: Philomena angina Attending Physician: Gildardo Mcgowan DO History of Present Illness Patient is a 73-year-old female with known coronary artery disease with prior PCI and stent to the left anterior descending, restenosis with repeat intervention 2020. Chronic stable angina pectoris, hyperlipidemia. Patient presents this admission noting recent change in anginal pattern with increasing symptoms of chest pain and discomfort relieved with sublingual nitroglycerin. Had been using nitroglycerin very rarely perhaps once a month now have taken several in the past week notes marked exertional fatigue mid afternoon. Denies syncope or near syncope. No sustained chest pain or discomfort. No fevers chills or unexplained infections. No bleeding difficulties. Underlying medical issues as listed below. Prior stress testing in the past without ischemia most recently August 2023 Allergies Allergy/AdvReac Type Severity Reaction Status Date / Time codeine Allergy Intermediate RASH Verified 04/14/24 08:55 doxycycline Allergy Intermediate Rash Verified 04/14/24 08:55 Penicillins Allergy Intermediate RASH Verified 04/14/24 08:55 Sulfa (Sulfonamide Allergy Intermediate RASH Verified 04/14/24 08:55 Antibiotics) ticagrelor [From Brilinta] AdvReac Intermediate Difficulty Verified 04/14/24 08:55 Breathing Rdkwowa-KFM-VoS Reductase AdvReac Mild Muscle Pain Verified 04/14/24 08:55 Inhibitor [Irddftc-Jbv-Vdy Reductase Inhibitor] carvedilol [From Coreg] AdvReac Headache, Verified 04/14/24 08:55 blurred vision isosorbide AdvReac Headache, Verified 04/14/24 08:55 blurred vision Home Medications Medication Instructions Recorded Confirmed Type aspirin 81 mg tablet,delayed 81 mg PO DAILY #90 tabs 08/25/18 05/28/24 Rx release (Pallavi Low Dose Aspirin) ascorbic acid (vitamin C) 500 mg 500 mg PO .DAILY AT NOON 02/01/19 05/28/24 History chewable tablet cholecalciferol (vitamin D3) 25 2,000 unit PO DAILY 06/14/19 05/28/24 History mcg (1,000 unit) chewable tablet (Vitamin D3) cyanocobalamin (vitamin B-12) 1,000 mcg PO .DAILY AT NOON 06/14/19 05/28/24 History 1,000 mcg tablet (Vitamin B-12) nitroglycerin 0.4 mg sublingual 0.4 mg sublingual DIRECTED PRN 09/27/19 05/28/24 Rx tablet chest pain #25 tabs clopidogrel 75 mg tablet 75 mg PO QAM #90 tabs 03/27/20 05/28/24 Rx evolocumab 140 mg/mL subcutaneous 140 mg subcut .every 2 weeks 12/01/20 05/28/24 History syringe (Repatha Syringe) acetaminophen 650 mg 1,300 mg PO AMHS 10/15/23 05/28/24 History tablet,extended release (Tylenol Arthritis Pain) escitalopram oxalate 20 mg tablet 20 mg PO QAM #90 tabs 10/16/23 05/28/24 Rx ketoconazole 2 % shampoo 1 applic topical Q14D 04/14/24 05/28/24 History folic acid 1 mg tablet 2 mg PO DAILY 05/28/24 05/28/24 History levothyroxine 50 mcg tablet 50 mcg PO DAILYBB 05/28/24 05/28/24 History methotrexate sodium 2.5 mg tablet See Rx Instructions .Route .COMPLEX 05/28/24 05/28/24 History multivitamin with minerals 1 tab PO .DAILY AT NOON 05/28/24 05/28/24 History trazodone 50 mg tablet 75 mg PO HS 05/28/24 05/28/24 History Patient History Medical History Sinusitis Closed fracture of left distal fibula (03/10/22) Ankle fracture, left UTI symptoms PVC (premature ventricular contraction) Status post insertion of drug-eluting stent into left anterior descending (LAD) artery [place] hx of at age 22 Hypothyroidism Hearing deficit On anticoagulant therapy plavix daily d/t cardiac stent Diverticulosis Pigmented skin lesion Postmenopausal atrophic vaginitis Sleep terror disorder Essential tremor Cerebral vascular disease Vitamin D deficiency Aortic valve insufficiency Carotid artery stenosis NSTEMI (non-ST elevated myocardial infarction) 08/2018--follows with Dr. Mascorro Surgical History History of cataract surgery RT/LEFT History of anesthesia reaction slow to wake up during thumb sx 06/09/2019 at [facility] had a block placed and "hit a nerve" caused severe pain and is in physicial therapy History of section History of right breast biopsy benign History of total hysterectomy with bilateral salpingo-oophorectomy (BSO) Status post right foot surgery "had to shave down bone on my foot" History of thumb surgery left thumb History of root canal procedure History of wisdom tooth extraction Status post excision of neuroma History of abdominal surgery adhesion removal-twice, d/t endometriosis History of colonoscopy (09/13/13) Left sided diverticulosis. Internal hemorrhoids. No biopsies. F/U due 2023. History of esophagogastroduodenoscopy (EGD) (08/14/10) Diagnostic for epigastric pain w/u. Biopsies consistent with mild chronic gastritis. Negative H. pylori. No follow up recommended. History of coronary artery stent placement (~08/2018) 08/2018 Family History Grandfather (Paternal) Acquired amyotrophic lateral sclerosis Sister CREST syndrome Father Pulmonary fibrosis Polyneuropathy Other No family history of adverse response to anesthesia Skin cancer Denies family history of Colon cancer Ovarian cancer Prostate cancer Diabetes Myocardial infarction Breast cancer Lung cancer Colorectal cancer Hypertension Stroke Social History Smoking Status: Never smoker Second Hand Exposure: No; Do You Dip or Chew Tobacco: No; Hx Alcohol Use: No Hx Substance Use: No Preferred Language: Italian Communication Ability: Effective Visual Impairment: Limited Hearing Ability: Use of Hearing Aid Storage Battery Tester Required: No Beliefs That Will Affect Care: None marital status: Current Living Situation: Spouse Current Living Situation Comment: two story home current occupational status: retired current occupation: Retired How many Children do You have: 1 Other Information That Helps Us Care for You: No Feels Safe at Home: Yes Safety Concerns: Feels Safe At This Time Childhood Exposure to Second-Hand Smoke: Yes caffeine: Yes Dental Care, Regularly: Yes Physical Activity Frequency: Daily Seatbelt Use: always Sunscreen Use: Yes Assistive Devices: None and Glasses Review of Systems Review of Systems: All systems reviewed & are unremarkable except as noted in HPI & below Physical Exam Constitutional: + thin; no acute distress Eyes: PERRL, conjunctivae normal, anicteric sclerae ENMT: external ear and nose normal, oropharynx normal Neck: trachea midline, no thyromegaly Respiratory: normal respiratory effort, lungs clear to auscultation Cardiovascular: RRR, no murmur, no edema Vessels: radial pulses present (Diminished right radial pulse); no JVD Extremities: no edema Gastrointestinal (Abdomen): normal bowel sounds, soft, nontender, no hepatosplenomegaly Musculoskeletal: no cyanosis or clubbing, extremities motor strength 5/5 Results & Data Vital Signs (Past 12 Hours) Vital Signs Temp Pulse Pulse Resp BP BP Pulse Ox 05/29/24 07:37 36.5 C 58 L 18 106/68 96 05/29/24 06:00 62 05/29/24 03:02 36.6 C 67 16 134/74 95 05/28/24 23:50 36.5 C 69 20 120/73 96 05/28/24 23:00 54 L 05/28/24 22:30 O2 Del Method 05/29/24 07:37 Room Air 05/29/24 06:00 05/29/24 03:02 Room Air 05/28/24 23:50 Room Air 05/28/24 23:00 05/28/24 22:30 Room Air Laboratory Results Laboratory Results - last 24 hr 05/28/24 05/29/24 05/29/24 16:30 01:29 08:00 WBC 6.93 6.05 RBC 3.66 L 3.45 L Hgb 11.7 L 11.0 L Hct 34.5 L 32.6 L MCV 94.3 94.5 MCH 32.0 31.9 MCHC 33.9 33.7 RDW Std Deviation 44.5 44.8 RDW Coeff of Rashard 13.1 13.1 Plt Count 297 263 MPV 9.6 9.7 Immature Gran % (Auto) 0.3 0.2 Neut % (Auto) 44.4 41.4 Lymph % (Auto) 45.2 48.8 [place] % (Auto) 8.5 7.6 Eos % (Auto) 1.2 1.3 Baso % (Auto) 0.4 0.7 Neut # (Auto) 3.08 2.51 Lymph # (Auto) 3.13 2.95 [place] # (Auto) 0.59 0.46 Eos # (Auto) 0.08 0.08 Baso # (Auto) 0.03 0.04 Immature Gran # (Auto) 0.02 0.01 PT 10.3 INR 0.9 APTT 25 PTT Ratio 0.9 Heparin Anti-Xa, Unfract 0.60 Sodium 139 139 Potassium 4.1 3.9 Chloride 105 106 Carbon Dioxide 29 25 Anion Gap 5 8 BUN 30 H 27 H Creatinine 0.88 0.72 Est Cr Clr Drug Dosing 48.6 60.1 eGFR 69.35 88.23 BUN/Creatinine Ratio 34.1 H 37.5 H Glucose 117 H 139 H Calcium 8.9 8.7 Magnesium 2.0 Total Bilirubin 0.2 AST 18 ALT 13 Alkaline Phosphatase 61 Troponin I High Sens < 2.3 3.0 3.5 Total Protein 6.7 Albumin 4.0 Globulin 2.7 Albumin/Globulin Ratio 1.5 (1) Chest pain Chest pain type: unspecified Qualified Code(s): R07.9 - Chest pain, unspecified
[2024-05-29] MEDS: metHOTREXate sodium 2.5 MG TAB PO SCH ×2 (12:13→16:05)
[2024-05-29] MEDS: DICLOFENAC SOD 1% GEL 100 GM TUBE EXT SCH (13:20)
[2024-05-29] MEDS: CYANOCOBALAMIN (B-12) 500 MCG TABLET PO SCH (13:48)
--- NOTE | 2024-05-29 14:43 | Billing Data ---
Date of Service May 29, 2024 Coding Level of Care Code 30801 SUB INP/OBS CARE
[2024-05-29 17:10] LABS: Appearance Urine Clear (Clear); Bilirubin Urine Negative (Negative); Blood Urine Negative (Negative); Color Urine Yellow; Glucose Urine UA Negative (Negative); Ketones Urine Negative (Negative); Leukocyte Esterase Urine Negative (Negative); Nitrite Urine Negative (Negative); Protein Urine Negative (Negative); Specific Gravity Urine 1.012 (1.000-1.030); Urobilinogen Urine Negative (Negative)
[2024-05-30 06:17] LABS: Hematocrit (blood only) 34.7 % (37.0-47.0); Hemoglobin 11.4 g/dl (12.0-16.0); Mean Corpuscular Hemoglobin 31.2 pg (25.0-34.0); Mean Corpuscular Hgb Conc 32.9 g/dL (32.0-36.0); Mean Corpuscular Volume 95.1 fL (80.0-100.0); Mean Platelet Volume 9.8 fL (9.4-12.4); Platelet Count 278 K/uL (130-400); RDW Coefficient of Variation 13.2 % (11.5-14.5); RDW Standard Deviation 45.5 fL (36.4-46.3); Red Blood Count 3.65 M/uL (4.20-5.40)
[2024-05-30 06:29] LABS: BUN Creatinine Ratio 33.3 (10-20); Calcium 8.9 mg/dl (8.6-10.3); Creatinine Clr Calc Pharmacy 58.7 ml/min
[2024-05-30 06:37] LABS: ANTI-Xa, UFH(UnfractionatedHep 0.61 IU/ml (0.3-0.7)
[2024-05-30 06:41] LABS: Basophils # (auto) 0.03 K/uL (0.00-0.20); Basophils % (auto) 0.4 %; Eosinophils # (auto) 0.13 K/uL (0.00-0.50); Eosinophils % (auto) 1.9 %; Immature Granulocytes # (auto) 0.01 K/uL (0.01-0.20); Immature Granulocytes % (auto) 0.1 %; Lymphocytes # (auto) 3.78 K/uL (1.20-3.40); Lymphocytes % (auto) 55.6 %; Monocytes % (auto) 8.8 %; Neutrophils # (auto) 2.25 K/uL (1.40-6.50); Neutrophils % (auto) 33.2 %
--- NOTE | 2024-05-30 07:36 | Hospitalist Progress Note ---
Date of Service May 30, 2024 Assessment & Plan (1) Chest pain: (2) Exertional angina: (3) History of cardiac cath: (4) CAD (coronary artery disease): (5) HLD (hyperlipidemia): (6) RA (rheumatoid arthritis): Plan 73-year-old female with a past medical history of ASCVD, PCI with MARTITA 08/2018, cath 07/2020 with 80% LAD stenosis and in-stent restenosis treated with 1 MARTITA to proximal-mid LAD, negative nuclear stress test 2020, 2021, 2023 who presents with chest pain going up stairs and with stress. Chest pain: Exertional angina: - patient with chest pain on exertion and when stressed x multiple weeks; relieved by Nitro - feels similar to previous when need for stents although not as severe - Last cardiac catheterization 2020 with 80% stenosis at the mid LAD and in- stent restenosis - troponin negative (<2.3), CXR negative, VSS stable - EKG NSR without ischemic changes - Nitrobid Q6H prn - Cardiology consulted: diagnostic coronary angiography on Friday - On heparin drip - DAPT continue CAD (coronary artery disease): -history of previous NSTEMI s/p cardiac cath with PCI to LAD 08/23/2018 - Cardiac cath 07/2020 resulting in new MARTITA to proximal to mid LAD - negative nuclear stress testing 08/2020, 10/2021, and 08/2023 - noted to be previously intolerant to isosorbide mononitrate, amlodipine, beta- blockers - continue ASA and Plavix HLD (hyperlipidemia): - history of statin intolerance, on - due to take on Saturday 06/02 - lipid panel 04/14/24 WNL RA (rheumatoid arthritis): - takes methotrexate 15 mg on Saturdays - ordered for 05/29 (3 2.5mg tabs with lunch and 3 with dinner) - continue Voltaren gel as needed - Tylenol 1,000 mg q8hr (Tylenol arthritis not available) Chronic stable diagnoses: Hypothyroidism - continue levothyroxine A/D - continue escitalopram and trazodone Fibromyalgia: stable VTE ppx: heparin Diet: heart healthy Code status: Full Dispo: PCU with unstable angina Admission and Anticipated Discharge Date Admission Date: May 28, 2024 Supervising Physician Co-Signing Physician Notes I personally examined the patient and verified all rizo points of history and exam, discussed case, and agree with decision making with Dr Steffen Ibarra No new complaints. For cast tomorrow. Vitals noted, in general she is awake and alert pleasant no distress. HEENT normocephalic atraumatic mucous membranes moist. Breathing unlabored no accessory muscle use good effort. Skin without rashes pallor or icterus. Neuro without focal deficits. Labs and EKG reviewed. Coronary artery disease/anginacurrently chest pain-free, troponins negative, EKG nonacute. Symptoms quite concerning for coronary disease. cath tomorrow. Discussed secondary risk reduction including exercise once she is doing better from her acute situation. Otherwise as above Subjective Ya was seen this morning, in NAD. No chest pain at rest. 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 Denied palpitations, CP, SOB or any other symtoms Review of Systems Review of Systems: as per HPI Physical Exam Constitutional: WD/WN, vitals as above well developed, well nourished and + well hydrated; no acute distress Eyes: PERRL, conjunctivae normal, anicteric sclerae Respiratory: normal respiratory effort, lungs clear to auscultation Cardiovascular: RRR, no murmur, no edema Extremities: no edema Gastrointestinal (Abdomen): normal bowel sounds, soft, nontender, no hepatosplenomegaly Skin: no rashes, warm and dry Results & Data Results & Data Vital Signs (Past 12 Hours) Vital Signs Temp Pulse Pulse Resp BP Pulse Ox O2 Del Method 05/30/24 03:01 36.6 C 56 L 18 130/72 96 Room Air 05/29/24 23:00 52 L 05/29/24 22:27 36.6 C 60 16 125/73 94 Room Air 05/29/24 20:35 Room Air Resident Activity Tracking Resident Involvement: Resident Care Provided Care Provided: Adult Hospital Medicine (1) Chest pain Chest pain type: unspecified Qualified Code(s): R07.9 - Chest pain, unspecified
--- NOTE | 2024-05-30 10:06 | Cardiology Progress Note ---
Date of Service May 30, 2024 Assessment & Plan (1) Chest pain: (2) Exertional angina: (3) CAD (coronary artery disease): (4) HLD (hyperlipidemia): (5) RA (rheumatoid arthritis): Plan Patient is a 73-year-old female with known coronary disease prior stable chronic angina pectoris who presents with symptoms concerning for accelerating angina with frequent nitroglycerin use recently with relief of symptoms. Has undergone prior stress testing recently August 2023 study not notable for ischemia at that time. Symptoms have changed per patient's description. EKGs and cardiac enzymes without injury Recommendations: Discussed findings in detail with the patient do not feel additional stress testing would provide adequate reassurance with ongoing anginal pattern. Will recommend diagnostic coronary angiography and tentatively scheduled for Friday Continue IV heparin 05/30/2024 Assessment and plan as outlined above. Symptoms concerning for accelerating angina. Stress testing August 2023, repeat not likely to aid in management. Patient referring for diagnostic coronary angiography. Discussed in detail with patient Exam unchanged with notable small right radial pulse Admission and Anticipated Discharge Date Admission Date: May 28, 2024 Subjective Patient seen and personally examined, chart, telemetry reviewed. Patient denies any sustained chest pain overnight brief jabs consistent with likely sensed ventricular ectopy described. No shortness of breath. No dizziness no fevers chills no bleeding issues. Physical Exam Constitutional: + thin; no acute distress Eyes: PERRL, conjunctivae normal, anicteric sclerae ENMT: external ear and nose normal, oropharynx normal Neck: trachea midline, no thyromegaly Respiratory: normal respiratory effort, lungs clear to auscultation Cardiovascular: RRR, no murmur, no edema Vessels: radial pulses present (Diminished right radial pulse); no JVD Extremities: no edema Gastrointestinal (Abdomen): normal bowel sounds, soft, nontender, no hepatosplenomegaly Musculoskeletal: no cyanosis or clubbing, extremities motor strength 5/5 Results & Data Vital Signs (Past 12 Hours) Vital Signs Temp Pulse Pulse Resp BP Pulse Ox O2 Del Method 05/30/24 08:00 60 05/30/24 07:40 36.6 C 57 L 18 165/83 H 94 Room Air 05/30/24 03:01 36.6 C 56 L 18 130/72 96 Room Air 05/29/24 23:00 52 L 05/29/24 22:27 36.6 C 60 16 125/73 94 Room Air Laboratory Results Laboratory Results - last 24 hr 05/29/24 05/29/24 05/30/24 14:46 16:47 05:37 WBC 6.80 RBC 3.65 L Hgb 11.4 L Hct 34.7 L MCV 95.1 MCH 31.2 MCHC 32.9 RDW Std Deviation 45.5 RDW Coeff of Rashard 13.2 Plt Count 278 MPV 9.8 Immature Gran % (Auto) 0.1 Neut % (Auto) 33.2 Lymph % (Auto) 55.6 [place] % (Auto) 8.8 Eos % (Auto) 1.9 Baso % (Auto) 0.4 Neut # (Auto) 2.25 Lymph # (Auto) 3.78 H [place] # (Auto) 0.60 H Eos # (Auto) 0.13 Baso # (Auto) 0.03 Immature Gran # (Auto) 0.01 Heparin Anti-Xa, Unfract 0.61 Sodium 139 Potassium 4.0 Chloride 107 Carbon Dioxide 26 Anion Gap 6 BUN 24 H Creatinine 0.72 Est Cr Clr Drug Dosing 58.7 eGFR 88.23 BUN/Creatinine Ratio 33.3 H Glucose 92 Calcium 8.9 Troponin I High Sens 6.2 Urine Color Yellow Urine Appearance Clear Urine pH 7.0 Ur Specific [place] 1.012 Urine Protein Negative Urine Glucose (UA) Negative Urine Ketones Negative Urine Blood Negative Urine Nitrite Negative Urine Bilirubin Negative Urine Urobilinogen Negative Ur Leukocyte Esterase Negative (1) Chest pain Chest pain type: unspecified Qualified Code(s): R07.9 - Chest pain, unspecified
--- NOTE | 2024-05-30 16:54 | Billing Data ---
Date of Service May 30, 2024 Coding Level of Care Code 63769 SUB INP/OBS CARE
[2024-05-31 06:26] LABS: Albumin Globulin Ratio 1.4 (0.9-2); Albumin Level 3.9 gm/dl (3.4-5.0); Bilirubin,Total 0.3 mg/dl (0.2-1.0); Calcium 9.4 mg/dl (8.6-10.3); Creatinine Clr Calc Pharmacy 56.2 ml/min; Globulin 2.8 gm/dl (2.5-4.0); Magnesium 2.2 mg/dl (1.7-2.4); Phosphorus 4.5 mg/dl (2.5-4.9); Potassium 4.2 mmol/L (3.5-5.1); Total Protein 6.7 gm/dl (6.0-8.3)
[2024-05-31 06:33] LABS: ANTI-Xa, UFH(UnfractionatedHep 0.57 IU/ml (0.3-0.7)
--- NOTE | 2024-05-31 07:28 | Hospitalist Progress Note ---
Date of Service May 31, 2024 Assessment & Plan (1) Chest pain: (2) Exertional angina: (3) History of cardiac cath: (4) CAD (coronary artery disease): (5) HLD (hyperlipidemia): (6) RA (rheumatoid arthritis): Plan 73-year-old female with a past medical history of ASCVD, PCI with MARTITA 08/2018, cath 07/2020 with 80% LAD stenosis and in-stent restenosis treated with 1 MARTITA to proximal-mid LAD, negative nuclear stress test 2020, 2021, 2023 who presents with chest pain going up stairs and with stress. Chest pain, Exertional angina: - patient with chest pain on exertion and when stressed x multiple weeks; relieved by Nitro - Last cardiac catheterization 2020 with 80% stenosis at the mid LAD and in- stent restenosis - troponin negative (<2.3), CXR negative on admission - EKG NSR without ischemic changes - Nitrobid Q6H prn - Cardiology consulted: diagnostic coronary angiography scheduled for today @1500, results pending - Heparin held for cath - DAPT CAD (coronary artery disease): - history of NSTEMI s/p cardiac cath with PCI to LAD 08/23/2018 - Cardiac cath 07/2020 resulting in new MARTITA to proximal to mid LAD - negative nuclear stress testing 08/2020, 10/2021, and 08/2023 - noted to be previously intolerant to isosorbide mononitrate, amlodipine, beta- blockers - continue ASA and Plavix HLD (hyperlipidemia): - history of statin intolerance, on Repatha - next dose due 06/02 - lipid panel 04/14/24 at goal RA (rheumatoid arthritis): - takes methotrexate 15 mg on Saturdays - continue Voltaren gel as needed - Tylenol 1,000 mg q8hr Chronic stable diagnoses: Hypothyroidism - continue levothyroxine A/D - continue escitalopram and trazodone Fibromyalgia: stable VTE ppx: held pending cardiac cath Diet: NPO pending cardiac cath Code status: Full Dispo: PCU Admission and Anticipated Discharge Date Admission Date: May 28, 2024 Supervising Physician Co-Signing Physician Notes Attending Physician Supervision Note: I independently interviewed and examined the patient and verified the rizo history and physical, reviewed labs and image studies and agree with findings and care plan noted above. comfortable in bed. no chest pain, shortness of breath. reported right hand s welling. AAox3, no resp distress. RRR, CTA, Angina/CAD - for [facility] today. DAPT. intolerant to b susana. to hold heparin drip. statin. nitro patch. Subjective Patient reports no further chest pain, though she has been minimally active since admission. Denies SOB, palpitations, fevers/chills. Scheduled for cardiac cath later this afternoon. Review of Systems Review of Systems: as per HPI Physical Exam Physical Exam: General: Alert and oriented. No acute distress Cardiac: Regular rate and rhythm, no murmurs appreciated Respiratory: Lungs clear to auscultation bilaterally, No increased work of breathing Extremities: No lower extremity edema, calves non-tender bilaterally Results & Data Results & Data Vital Signs (Past 12 Hours) Vital Signs Temp Pulse Pulse Resp BP Pulse Ox O2 Del Method 05/31/24 07:15 36.8 C 54 L 16 144/76 H 95 Room Air 05/31/24 03:51 36.6 C 57 L 18 147/79 H 94 Room Air 05/30/24 23:42 36.9 C 55 L 21 122/70 93 Room Air 05/30/24 23:00 53 L 05/30/24 21:25 Room Air 05/30/24 19:53 36.5 C 54 L 18 157/78 H 98 Room Air Resident Activity Tracking Resident Involvement: Resident Care Provided Care Provided: Adult Hospital Medicine (1) Chest pain Chest pain type: unspecified Qualified Code(s): R07.9 - Chest pain, unspecified
--- NOTE | 2024-05-31 11:38 | Cardiology Progress Note ---
Date of Service May 31, 2024 Assessment & Plan (1) Chest pain: (2) Exertional angina: (3) CAD (coronary artery disease): (4) HLD (hyperlipidemia): (5) RA (rheumatoid arthritis): Plan Patient is a 73-year-old female with known coronary disease prior stable chronic angina pectoris who presents with symptoms concerning for accelerating angina with frequent nitroglycerin use recently with relief of symptoms. Has undergone prior stress testing recently August 2023 study not notable for ischemia at that time. Symptoms have changed per patient's description. EKGs and cardiac enzymes without injury In 2018, she presented to [facility] with chest pain, STEMI and underwent PCI/ MARTITA to the LAD (Dr Bronson). In 2020, had abnormal stress echo. Outpatient cardiac catheterization performed at [place], revealing severe single vessel disease with severe LAD disease involving the proximal segment and diffuse in-stent restenosis in prior proximal to mid LAD stent. She therefore underwent PCI of proximal to mid LAD in-stent restenosis with new overlapping drug-eluting stent (2.5 x 30 mm [place]; postdilated with 3.0 NC). Recently with increasing angina. Multiple normal stress tests since 2020 PCI * Recommend proceeding with repeat coronary angiography * Discussed with patient and that there are several patients of higher acuity on schedule ahead of her. She would like to remain NPO and have procedure today if possible. * Will hold heparin in anticipation of the procedure. * Continue ASA, clopidogrel (chronic) * Intolerance of beta susana in past with resting bradycardia * Continue topical nitroglycerin Admission and Anticipated Discharge Date Admission Date: May 28, 2024 Subjective Patient seen in cardiology follow up. Denies additional chest pain. Developed ecchymosis on the dorsal aspect of right had where she had phlebotomy. Telemetry reveals SB in the 50s. Physical Exam Constitutional: + thin; no acute distress Eyes: PERRL, conjunctivae normal, anicteric sclerae ENMT: external ear and nose normal, oropharynx normal Neck: trachea midline, no thyromegaly Respiratory: normal respiratory effort, lungs clear to auscultation Cardiovascular: RRR, no murmur, no edema Vessels: radial pulses present (Diminished right radial pulse); no JVD Extremities: no edema Gastrointestinal (Abdomen): normal bowel sounds, soft, nontender, no hepatosplenomegaly Musculoskeletal: no cyanosis or clubbing, extremities motor strength 5/5 Results & Data Vital Signs (Past 12 Hours) Vital Signs Temp Pulse Pulse Resp BP Pulse Ox O2 Del Method 05/31/24 11:07 36.8 C 53 L 16 145/70 H 96 Room Air 05/31/24 08:00 57 L 05/31/24 08:00 Room Air 05/31/24 07:15 36.8 C 54 L 16 144/76 H 95 Room Air 05/31/24 03:51 36.6 C 57 L 18 147/79 H 94 Room Air 05/30/24 23:42 36.9 C 55 L 21 122/70 93 Room Air (1) Chest pain Chest pain type: unspecified Qualified Code(s): R07.9 - Chest pain, unspecified
--- NOTE | 2024-05-31 14:05 | Pre Anesthesia Assessment ---
Date of Service May 31, 2024 Pre Sedation Assessment Vital Signs Temp Pulse Pulse Resp BP Pulse Ox O2 Del Method 05/31/24 13:04 54 L 18 152/66 H 96 Room Air 05/31/24 11:07 36.8 C 53 L 16 145/70 H 96 Room Air 05/31/24 08:00 57 L 05/31/24 08:00 Room Air 05/31/24 07:15 36.8 C 54 L 16 144/76 H 95 Room Air 05/31/24 03:51 36.6 C 57 L 18 147/79 H 94 Room Air 05/30/24 23:42 36.9 C 55 L 21 122/70 93 Room Air 05/30/24 23:00 53 L 05/30/24 21:25 Room Air 05/30/24 19:53 36.5 C 54 L 18 157/78 H 98 Room Air 05/30/24 16:20 58 L 05/30/24 15:04 37.1 C 52 L 18 153/75 H 96 Room Air Cardiovascular RRR, no murmur, no edema Respiratory normal respiratory effort, lungs clear to auscultation Pre-Sedation Airway Assessment Smoking Status: Never smoker Hx Sleep Apnea: No Short, Thick Neck: No Thyromental Distance: > or= 3.5 Finger Breadths Oral Cavity: + WNL Mallampati Class: III ASA: ASA3 NPO Status Date of Last Intake of Fluids: 05/30/24 Time of Last Intake of Fluids: 19:30 Date of Last Intake of Solid Food: 05/30/24 Time of Last Intake of Solid Foods: 19:30 Notes The planned sedation has been discussed with the patient. Informed Consent was obtained. I have identified the patient, determined the appropriateness of sedation and have assessed the patient immediately prior to the procedure. All medicine(s) and interventions are by my order.
[2024-05-31] MEDS: NITROGLYCERIN/D5W 100MCG/ML 20ML SYR ONE (15:31)
[2024-05-31] MEDS: niCARdipine 2,000 MCG/20 ML SYR ONE (15:31)
[2024-05-31] MEDS: OPTIRAY 350 ONE (15:53)
[2024-05-31] MEDS: MIDAZOLAM HCL 1 MG/ML 2ML VIAL ONE (15:53)
[2024-05-31] MEDS: fentaNYL citrate PF 100 MCG/2 ML VIAL ONE (15:53)
[2024-05-31] MEDS: HEPARIN (PORCINE) 1000 UNIT/ML 10 ML (CATH LAB USE ONLY) ONE (15:53)
--- NOTE | 2024-05-31 16:27 | Post Anesthesia Assessment ---
Date of Service May 31, 2024 Post Sedation Assessment Vital Signs Temp Pulse Pulse Resp BP Pulse Ox O2 Del Method 05/31/24 17:15 36.6 C 48 L 16 161/74 H 95 Room Air 05/31/24 17:15 48 L 05/31/24 17:00 51 L 05/31/24 17:00 48 L 14 150/66 H 95 Room Air 05/31/24 16:45 52 L 12 152/69 H 96 Room Air 05/31/24 16:30 50 L 05/31/24 16:30 36.5 C 55 L 18 144/108 H 96 Room Air 05/31/24 16:20 50 L 16 162/63 H 96 Room Air 05/31/24 16:05 36.6 C 69 16 164/70 H 96 Room Air 05/31/24 13:04 54 L 18 152/66 H 96 Room Air 05/31/24 11:07 36.8 C 53 L 16 145/70 H 96 Room Air 05/31/24 08:00 57 L 05/31/24 08:00 Room Air 05/31/24 07:15 36.8 C 54 L 16 144/76 H 95 Room Air 05/31/24 03:51 36.6 C 57 L 18 147/79 H 94 Room Air 05/30/24 23:42 36.9 C 55 L 21 122/70 93 Room Air 05/30/24 23:00 53 L 05/30/24 21:25 Room Air 05/30/24 19:53 36.5 C 54 L 18 157/78 H 98 Room Air Recovery Score Activity: Moves 4 extremities Respiration: Deep Breath/Cough Circulation: +/-20% PreAnes Value Consciousness: Fully Awake Oxygen Saturation: > 92% On Room Air Post Anesthesia Score: 10 Discharge Sedation Level of Care: Fast Track Phase II Post Sedation Plan On clinical assessment, the patient appears to have tolerated the sedation without complications. Patient is recovering as anticipated. Patient will continue to be monitored by nursing and may be discharged when sedation discharge criteria are met per below protocol. Upon Completions of procedure up to 15 minutes continue every 5 minute vital signs and the P.A.R. score; then discharge to a Phase I or Fast Track to Phase II per the following guidelines: * Discharge Patient to appropriate Phase II area if PAR is 8 or greater or return to pre- procedure baseline. The post - procedure orders will be as directed. * If PAR score is less than 8 or not return to pre-procedure baseline then patie nt will follow Phase I monitoring till PAR is reached for Phase II. The Phase I may be done in procedure room or may call to secure a Phase I area. * If naloxone or flumazenil are used for reversal, hold in Phase I for continued monitoring from when last reversal dose was given for a minimum of 60 minutes or longer pending the nurse and/or physician discretion of patient condition before discharge to Phase II. Please call the Sedation Physician to re-evaluate and complete post-note for discharge to Phase II area. Do NOT discharge from procedure sedation or Phase 1 until post- sedation ev aluation note is complete by procedure /sedation MD Sedation Discharge Instructions to be given to the patient at discharge to home. [facility] Procedure Codes (Charges) Indication for Procedure Indication for procedure: unstable angina Sedation/Anesthesia Procedure 1: Sedation/Anesthesia: 97633 Mod Sedation by the same physician;Init15 Min Child Age 5 & Up (Initial 15 minutes, start time 1539, end time 1554) Total Sedation Time (minutes): 15
--- NOTE | 2024-05-31 17:35 | Communication Note ---
Date of Service: May 31, 2024 Patient seen in follow up post cardiac cath. Films reviewed. Case discussed with Dr Randall. LAD stent patent. No culprits to explain anginal symptoms. Plan: DC heparin. Advance diet. Given late hour and need for groin access, pt to remain in hospital. Likely discharge tomorrow. Upated pt's nurse.
--- NOTE | 2024-05-31 17:55 | Cardiac Catheterization ---
[facility] Data: Rn Hedis Cardiac Status Clinical evaluation leading to the procedure CAD Presenation: Unstable angina Anginal Classification: CCS IV Heart Failure: No Cardiogenic Shock within 24 Hours: No Cardiac Arrest within 24 Hours: No Imaging Studies Past 6 Months: No Stress Studies Past 6 Months: No Coronary Anatomy Dominant: Right Left Main (% Stenosis): Normal LAD (% Stenosis): Proximal (30%) and Mid (Stent patent) D1 (% Stenosis): Normal Circumflex (% Stenosis): Normal RCA (% Stenosis): Normal (Diffuse mild less than 30%) Ramus (% Stenosis): Normal Diagnostic Physicians Name: Randall Randall MD, PhD Closure Device Percutaneous Entry Location: Radial (And femoral) Closure Device: Angio-Seal Recommendations: Medical Therapy and/or Counseling Cardiac Cath Procedure Full Procedure Date May 31, 2024 Pre-Procedure Diagnosis Pre-Procedure Diagnosis: Acute Coronary Syndrome AUC Score AUC Score: 7 Post-Procedure Diagnosis Post-Procedure Diagnosis: Mild CAD Procedure(s) Performed Procedure(s) Performed: Coronary Angiography and Ultrasound Guided Vascular Access Director Systems Randall Randall MD, PhD Estimated Blood Loss Estimated Blood Loss: 5 cc Medication(s) Medication(s): Fentanyl, Lidocaine 1% and Versed Summary of Findings Brief description: Patient was brought to the cardiac catheterization suite where she was shaved and prepped in a sterile fashion. Sedated using IV Versed and fentanyl. Soft tissues of the right wrist were anesthetized using 2 mL of 1% Xylocaine. Using the ultrasound for guidance, we attempted to access the right radial artery. We were unable to advance the 0.014 guidewire in a safe fashion and therefore we decided to abandon further attempts from the radial artery. The radial artery was small in diameter. Soft tissues of the right groin were anesthetized using 10 mL of 1% Xylocaine. Using the ultrasound for guidance (image saved), the right femoral artery was accessed and a 5 [place] femoral artery sheath was placed. All catheters were advanced and exchanged over a 0.035 J-tip wire. Left coronary angiography was performed in orthogonal views with a 5 [place] JL 4 diagnostic catheter. Right coronary angiography was performed in orthogonal views with a 5 [place] JR4 diagnostic catheter. Diagnostic catheters were removed. Limited femoral artery angiography was performed to evaluate for closure. Findings were favorable, therefore, the femoral artery sheath was exchanged for a 6 [place] Angio-Seal closure device. This was deployed in the recommended fashion. We obtained immediate hemostasis and the patient remained hemodynamically stable. She was returned to the recovery area. This ended the case. Coronary angiography findings: GTE-eibrj-adhbdra vessel trifurcating into LAD, circumflex, and ramus. No angiographically evident disease. OAQ-aivia-jsdjiwf and transapical. Proximal segment has 30 to 40% stenosis. It gives a large caliber first diagonal which has luminal irregularities. The mid LAD has a previously placed stent which remains widely patent. The distal LAD has no angiographically evident disease. LCx-medium caliber and nondominant. No significant disease. Ramus oqnmxlnslev-isids-okgoecd and branching vessel. No more than mild luminal irregularities. RCA-medium caliber dominant vessel. Bifurcates distally into the PDA and explosive ordnance specialist olateral branches. There is diffuse mild less than 30% stenosis. Summary: 1. Widely patent prior stent. 2. No more than mild nonocclusive coronary disease as described 3. 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 Start time 1539, end time 155 Procedural Complication(s) None Disposition Rn Hedis Holding/Recovery I attest to the content of the Intraoperative Record and any orders documented therein. Any exceptions are noted below. [facility] Card Cath Procedure Codes Cardiac Catheterization Procedure 1: Cardiovascular Cath Procedures: 35412 Coronaries Therapeutic Services & Ancillary Procedure 1: Cardiovascular Tx and Anc Procedures: 35421 Ultrasonic Guidance Vascular Access Moderate Sedation Procedure 1: Sedation/Anesthesia: 86161 Mod Sedation by the same physician;Init15 Min Child Age 5 & Up (Initial 15 minutes, start time 1539, end 1554) PG Care Time/CCT Total # of Minutes Spent Total Time Spent with Patient: Total time spent is greater than 50% in coordination of care (as documented) at patient's floor/unit and/or counseling patient:
[2024-06-01] MEDS ORDERED: CALCIUM CARBONATE 500 MG CHEWABLE TAB PO PRN (00:28)
--- NOTE | 2024-06-01 07:08 | Hospitalist Progress Note ---
Date of Service June 01, 2024 Assessment & Plan (1) Chest pain: (2) Exertional angina: (3) History of cardiac cath: (4) CAD (coronary artery disease): (5) HLD (hyperlipidemia): (6) RA (rheumatoid arthritis): Plan 73-year-old female with a past medical history of ASCVD, PCI with MARTITA 08/2018, cath 07/2020 with 80% LAD stenosis and in-stent restenosis treated with 1 MARTITA to proximal-mid LAD, negative nuclear stress test 2020, 2021, 2023 who presents with chest pain going up stairs and with stress. Chest pain, Exertional angina: - patient with chest pain on exertion and when stressed x multiple weeks; relieved by Nitro - Last cardiac catheterization 2020 with 80% stenosis at the mid LAD and in- stent restenosis - troponin negative (<2.3), CXR negative on admission - EKG NSR without ischemic changes - Nitrobid Q6H prn - Cardiology consulted: diagnostic coronary angiography scheduled for today @1500, results pending - Heparin held for cath - DAPT CAD (coronary artery disease): - history of NSTEMI s/p cardiac cath with PCI to LAD 08/23/2018 - Cardiac cath 07/2020 resulting in new MARTITA to proximal to mid LAD - negative nuclear stress testing 08/2020, 10/2021, and 08/2023 - noted to be previously intolerant to isosorbide mononitrate, amlodipine, beta- blockers - continue ASA and Plavix HLD (hyperlipidemia): - history of statin intolerance, on Repatha - next dose due 06/02 - lipid panel 04/14/24 at goal RA (rheumatoid arthritis): - takes methotrexate 15 mg on Saturdays - continue Voltaren gel as needed - Tylenol 1,000 mg q8hr Chronic stable diagnoses: Hypothyroidism - continue levothyroxine A/D - continue escitalopram and trazodone Fibromyalgia: stable VTE ppx: held pending cardiac cath Diet: NPO pending cardiac cath Code status: Full Dispo: PCU Admission and Anticipated Discharge Date Admission Date: May 28, 2024 Review of Systems Review of Systems: as per HPI Physical Exam Physical Exam: General: Alert and oriented. No acute distress Cardiac: Regular rate and rhythm, no murmurs appreciated Respiratory: Lungs clear to auscultation bilaterally, No increased work of breathing Extremities: No lower extremity edema, calves non-tender bilaterally Results & Data Results & Data Vital Signs (Past 12 Hours) Vital Signs Temp Pulse Pulse Resp BP Pulse Ox O2 Del Method 06/01/24 04:07 36.5 C 57 L 11 L 127/62 95 Room Air 06/01/24 00:08 36.6 C 58 L 16 130/57 L 95 Room Air 05/31/24 21:54 53 L 05/31/24 20:38 36.5 C 55 L 18 154/64 H 95 Room Air (1) Chest pain Chest pain type: unspecified Qualified Code(s): R07.9 - Chest pain, unspecified
[2024-06-01 07:49] VITALS: BP 114/68; PULSE 69; RESP 18; TEMP 97.8; O2SAT 98
--- NOTE | 2024-06-01 08:50 | Cardiology Progress Note ---
Date of Service June 01, 2024 Assessment & Plan (1) Chest pain: (2) CAD (coronary artery disease): (3) HLD (hyperlipidemia): Plan -obstructive CAD excluded by coronary angiography. Patent prior LAD stents. -Continue current medications including chronic ASA and clopidogrel. -Symptoms do not sound characteristic of GERD. OK from cardio perspective for discharge. Post catheterization instructions added to her DC document. Admission and Anticipated Discharge Date Admission Date: May 28, 2024 Subjective Patient seen in cardiology follow up. No symptoms suggestive of angina overnight. She is off telemetry this am (per her request), however, SR noted overnight. Physical Exam Constitutional: WD/WN, vitals as above Respiratory: normal respiratory effort, lungs clear to auscultation Cardiovascular: RRR, no murmur, no edema R femoral artery procedure site is clean, dry and intact. No ecchymosis of groin. Gastrointestinal (Abdomen): normal bowel sounds, soft, nontender, no hepatosplenomegaly Skin: ecchymosis of the dorsal aspect of right hand Neurologic: PERRL, EOMI, accommodation nl, no face palsy, no dysarthria Results & Data Vital Signs (Past 12 Hours) Vital Signs Temp Pulse Pulse Resp BP Pulse Ox O2 Del Method 06/01/24 07:48 36.6 C 69 18 114/68 98 Room Air 06/01/24 04:07 36.5 C 57 L 11 L 127/62 95 Room Air 06/01/24 00:08 36.6 C 58 L 16 130/57 L 95 Room Air 05/31/24 21:54 53 L (1) Chest pain Chest pain type: unspecified Qualified Code(s): R07.9 - Chest pain, unspecified
--- NOTE | 2024-06-01 09:25 | Discharge Summary ---
Date of Service June 01, 2024 Admission HPI Per Admitting Provider Patient is a 73-year-old female with past medical history of NSTEMI s/p cardiac cath with PCI 08/2018 and 07/2020 to LAD, CAD, hyperlipidemia, frequent PVCs, rheumatoid arthritis, GERD, hypothyroidism. She is seen today due to exertional angina, chest pain x multiple weeks when stressed or on exertion that is relieved by nitro. She was also given Ativan in the ED that relieved her chest pain. the patient stated that for the past few weeks she gets tired when doing chores around the house, she tries to keep going and then develops chest pain. She stated that this is relieved with rest and with nitro. In the past when she would take nitro for chest pain, it would relieve it for weeks, but this time it has come back within hours. She denies other symptoms associated with chest pain, denies diaphoresis, dyspnea, dizziness. She stated she does have chronic dizziness due to balance issues and has going to start going to PT right before Francesca. She stated this chest pain feels different than her fibromyalgia, she can tell the difference easily. It does feel similar to when she needed stents in the past, but is not as severe. When she needed stents in the past she had pain that radiated into her arms, denies radiation with this chest pain. She also has a history of GERD that has been well-controlled with diet. She has taken Tums the past few days for suspicion that the pain was due to reflux, Tums did not relieve the pain. Patient denies fever, chills, headache, dizziness, lightheadedness, dyspnea, dyspnea on exertion, abdominal pain, nausea, vomiting, numbness, tingling. Patient's updated at bedside. Admission Exam Per Admitting Provider The patient is awake, alert and oriented 3, well developed and well nourished, normocephalic and atraumatic, in no acute distress. Non-toxic appearing. HEENT- EOMI, mucous membranes moist. Hearing grossly intact. Heart-normal S1 and S2. No murmurs, rubs or gallops. Lungs-clear bilaterally, no respiratory distress, no accessory muscle use. Abdomen-normal bowel sounds and soft. No ascites noted. Non-tender. Extremities- no clubbing, cyanosis, or edema. Rheumatologic-normal range of motion. Psychiatric-anxious affect. Principal Diagnosis unstable angina Discharge Exam Constitutional WD/WN, vitals as above Respiratory normal respiratory effort; no respiratory distress Skin no rashes, warm and dry Neurologic PERRL, EOMI, accommodation nl, no face palsy, no dysarthria Psychiatric A+Ox3, euthymic affect Discharge Data Allergies Allergy/AdvReac Type Severity Reaction Status Date / Time codeine Allergy Intermediate RASH Verified 05/31/24 13:03 doxycycline Allergy Intermediate Rash Verified 05/31/24 13:03 Penicillins Allergy Intermediate RASH Verified 05/31/24 13:03 Sulfa (Sulfonamide Allergy Intermediate RASH Verified 05/31/24 13:03 Antibiotics) ticagrelor [From Brilinta] AdvReac Intermediate Difficulty Verified 05/31/24 13:03 Breathing Pbtatmf-FXZ-ZcO Reductase AdvReac Mild Muscle Pain Verified 05/31/24 13:03 Inhibitor [Dmfsecu-Lhi-Vmd Reductase Inhibitor] carvedilol [From Coreg] AdvReac Headache, Verified 05/31/24 13:03 blurred vision isosorbide AdvReac Headache, Verified 05/31/24 13:03 blurred vision Consultations 05/28/24 17:34 ED Decision to Admit Stat 05/28/24 18:10 Consult Cardiology Routine Procedures Performed Operation Date: 05/31/24 15:00 Actual Procedures p Cineradiography w/Routine Exam - Randall Randall MD, PhD s Cath, Coronaries ONLY (no LV) - Randall Randall MD, PhD Ordered Studies 05/31/24 06:52 CL Cath Imgs for PACS use only Stat Hospital Course (1) Chest pain: (2) Exertional angina: (3) History of cardiac cath: (4) CAD (coronary artery disease): (5) HLD (hyperlipidemia): (6) RA (rheumatoid arthritis): Plan 73-year-old female with a past medical history of ASCVD, PCI with MARTITA 08/2018, cath 07/2020 with 80% LAD stenosis and in-stent restenosis treated with 1 MARTITA to proximal-mid LAD, negative nuclear stress test 2020, 2021, 2023 who presented with chest pain going up stairs and with stress. Chest pain, Exertional angina, CAD: - patient with chest pain on exertion and when stressed x multiple weeks; relieved by Nitro - troponin negative (<2.3), CXR negative on admission - EKG NSR without ischemic changes - Cardiology consulted: s/p coronary angiography, which demonstrated patent prior stent, mild nonocclusive coronary disease ~30% stenosis of proximal LAD and RCA - Continue DAPT and Repatha for secondary risk reduction, beta susana relatively contraindicated due to baseline sinus bradycardia HLD (hyperlipidemia): - history of statin intolerance, continue Repatha - lipid panel 04/14/24 at goal Total Time Total Time Spent Total Time Spent (In Minutes): see attending attestation Discharge Plan Discharge Items Patient Disposition: Home - Self-Care Reason For Visit: UNSTABLE ANGINA Discharge Diagnosis: angina Activity: Resume your previous activity Non-emergency contact: Primary Care Provider and Director [employer] Call non-emergency contact if: you have any medication questions and your symptoms worsen Follow-up/Referrals: Shaun Sarabia DO [Primary Care Provider] - 06/04/24 11:00 am (Hospital follow up on June 04 at 11 am.) Diet: Heart Healthy Addtl Attending Provider Instructions: ACTIVITY RECOMMENDATIONS: It is common to feel weak and fatigue for a few days. * Do not drive or operate any motorized equipment for the next three days. * Limit stair usage (2 or 3 trips a day only) for the next three days. * Do not lift anything heavier than 10 pounds for the next three days. * Do not engage in vigorous exercise or any sports for the next five days. * You may shower the day after your procedure, but do not immerse the area for three days. Cleanse the site gently with soap and water. SPECIAL CARE INSTRUCTIONS: * You may replace the pressure dressing or band-aid the morning after the procedure. * After your procedure, it is normal to have a small bruise or small lump at the site. Examine your site daily for any change in the bruise or lump, redness, swelling, drainage or numbness. Notify your doctor if any change. BLEEDING: * If there is a small amount of bleeding at the site, lie down and apply firm pressure with a clean cloth for ten minutes. When the bleeding stops, lie quietly keeping the procedure limb straight for six hours. Notify your doctor as soon as possible. * If the bleeding does not stop after ten minutes or if there is a large amount of bleeding or spurting, call 911 immediately. Continue to lie down and hold firm pressure until help arrives. SKIN IRRITATION: * You may experience some redness and/or swelling in the area where radiation was administered. If any skin irritation occurs, please contact your family physician. FOLLOW UP VISIT: Keep any scheduled doctor appointments. MEDICATIONS: - No changes were made to your home medications - please continue your daily aspirin, Plavix, and Repatha for secondary cardiovascular risk reduction. Pending Studies at Discharge: No Stand-Alone Forms: My [facility], Smoking Cessation Medications and DC Order Prescriptions: Continued clopidogrel 75 mg tablet 75 mg PO QAM Qty: 90 3RF escitalopram oxalate 20 mg tablet 20 mg PO QAM Qty: 90 3RF Repatha Syringe 140 mg/mL syringe 140 mg subcut .every 2 weeks Rx Instructions: every 14 days nitroglycerin 0.4 mg tablet, sublingual 0.4 mg Sublingual DIRECTED PRN (Reason: chest pain) Qty: 25 1RF Patient Comments: given this morning in cardiac rehab. Rx Instructions: PLACE ONE TAB UNDER TONGUE Q 5 MINUTES FOR UP TO 3 DOSES IF NEEDED FOR CHEST PAIN ketoconazole 2 % shampoo 1 applic topical Q14D cyanocobalamin (vitamin B-12) [Vitamin B-12] 1,000 mcg Tablet 1,000 mcg PO .DAILY AT NOON cholecalciferol (vitamin D3) [Vitamin D3] 1,000 unit Tablet,Chewable 2,000 unit PO DAILY aspirin [Pallavi Low Dose Aspirin] 81 mg tablet,delayed release (DR/EC) 81 mg PO DAILY Qty: 90 3RF Patient Comments: takes in the am ascorbic acid (vitamin C) 500 mg Tablet,Chewable 500 mg PO .DAILY AT NOON acetaminophen [Tylenol Arthritis Pain] 650 mg tablet extended release 1,300 mg PO AMHS levothyroxine 50 mcg tablet 50 mcg PO DAILYBB Patient Comments: takes in the am multivitamin with minerals Tablet 1 tab PO .DAILY AT NOON trazodone 50 mg tablet 75 mg PO HS methotrexate sodium 2.5 mg tablet See Rx Instructions .ROUTE .COMPLEX Rx Instructions: TAKE 3 TABS BY MOUTH WITH LUNCH AND DINNER ON SATURDAYS folic acid 1 mg Tablet 2 mg PO DAILY Discharge Orders: Discharge Order (Routine); Ordered 06/01/24 Ordered By: Nolan Whitaker Admission Data Admit Date/Time: 05/28/24 18:10 Attending Provider: Radhika Myers Admit Provider: Chato Shankar Primary Care Provider: Shaun Sarabia Other Providers: Chato Shankar; Quinton Hagan; Gildardo Mcgowan Other Interventions: Discharge Summary Assessment (RN) Last Done: 06/01/24 10:08 Supervising Physician Co-Signing Physician Notes Attending Physician Supervision Note: I independently interviewed and examined the patient and verified the rizo history and physical, reviewed labs and image studies and agree with findings and care plan noted above. comfortable in bed. no chest pain, shortness of breath. right hand swelling improved AAox3, no resp distress. Chest pain/CAD - LHC done 05/31 - previous stent patent. no other significant stenosis. continue medical management per cardio. symptoms possibly GERD. d/c home. Resident Activity Tracking Resident Involvement: Resident Care Provided Care Provided: Adult Hospital Medicine
--- NOTE | 2024-06-01 13:38 | Electrocardiogram Report ---
Test Reason : Blood Pressure : */* mmHG Vent. Rate : 57 BPM Atrial Rate : 57 BPM P-R Int : 164 ms QRS Dur : 84 ms QT Int : 458 ms P-R-T Axes : 68 21 9 degrees QTcB Int : 445 ms Sinus bradycardia Otherwise normal ECG When compared with ECG of 28-May-2024 16:25, No significant change was found Confirmed by Aron Hall ([id number]) on 06/01/2024 1:37:45 PM Referred By: Winston Templeton Confirmed By: Aron Hall
== END 2024-06-01 11:22 | disposition home or self-care (01) | DRG 287 ==
LOC: ED 16:13 → EDINP 18:10 → SUATTDRO 18:10 → EDINP 20:27 → 2E 22:06
PROC: CLB.CCO (2024-05-31 15:00)